=== PATIENT | male | born 1965 | race Caucasian/White ===

== ENCOUNTER 2017-09-21 05:55 | Outpatient (CLI) | payer BC ==
[~2017-09-21] VITALS: Ht 177.8 cm; Wt 78.0 kg
[~2017-09-21 05:55] MED LIST: ALLO300T2 PO; ASP81TEC PO; COLC0.6T PO; MELO-195 PO; OMG1KC PO; ONDAN4ODT PO; PNT40TEC PO; SULF1TAB38 PO; TRM50T PO
[2017-09-21] MEDS ORDERED: ASPI-999 PO (15:11)
[2017-09-21] MEDS ORDERED: OMG1KC PO (15:11)
[2017-09-21] MEDS ORDERED: MELO15TA39 PO (15:11)
[2017-09-21] MEDS ORDERED: ALLO300T2 PO (15:11)
== END 2017-09-21 15:14 ==
LOC: PREOP 05:55
PROVIDERS: ATTEND Surgery
DX: Z01.818 Encounter for other preprocedural examination (principal); K92.1 Melena

== ENCOUNTER 2017-09-27 09:48 | Day surgery (SDC) | payer BC, OTHER ==
[~2017-09-27] VITALS: Ht 177.8 cm; Wt 78.0 kg
[~2017-09-27 09:48] MED LIST changes: +ASPI-999 PO; +MELO15TA39 PO
[2017-09-27] MEDS ORDERED: NS IV 500 ML 500 ML IV PRN (10:02)
[2017-09-27] MEDS ORDERED: LIDOCAINE JELLY 2% (XYLOCAINE) 5 ML TUBE MM PRN (10:15)
[2017-09-27 10:27] VITALS: BP 148/93
--- NOTE | 2017-09-27 11:00 | Progress Note-Pre Operative ---
Pre-Operative Progress Note H&P Reviewed The H&P was reviewed, patient examined and no changes noted. Date Seen by Provider: Sep 27, 2017 Time Seen by Provider: 10:45 Date H&P Reviewed: Sep 27, 2017 Time H&P Reviewed: 10:45 Pre-Operative Diagnosis: rectal bleed MIRIAM MILLER MD Sep 27, 2017 11:00 am
--- NOTE | 2017-09-27 11:00 | Conscious Sedation/ASA ---
Conscious Sedation Pre-Proced Time Reviewed: 10:45 ASA Class: 2 Airway Mallampati Classification: ([place] appropriate class) I. II. III, IV Lungs Heart ASA score ASA 1: a normal healthy patient ASA 2: a patient with a mild systemic disease (mid diabetes, controlled hypertension, obesity ASA 3: a patient with a severe systemic disease that limits activity (angina , COPD, prior Myocardial infarction) ASA 4: a patient with an incapacitating disease that is a constant threat to life (CHF, renal failure) ASA 5: a moribund patient not expected to survive 24 hrs. (ruptured aneurysm) ASA 6: a declared brain patient whose organs are being harvested. For emergent operations, add the letter E after the classification Grade 2 Sedation Plan: Analgesia, Amnesia, Plan communicated to team members, Discussed options with patient/fam, Discussed risks with patient/fam Note The patient is an appropriate candidate to undergo the planned procedure, sedation, and anesthesia. The patient immediately re-assessed prior to indication. MIRIAM MILLER MD Sep 27, 2017 11:00 am
[2017-09-27] MEDS ORDERED: ONDANSETRON 4 MG/2 ML (SDV) Z0FRAN IV PRN (11:15)
[2017-09-27] MEDS ORDERED: morphine INJ 10 MG/ML 1ML (SYR OR VIAL) IV PRN (11:15)
[2017-09-27] MEDS ORDERED: HYDROcodone/APAP 5 MG/325 MG (LORTAB) TAB PO PRN (11:15)
[2017-09-27] MEDS ORDERED: ACETAMINOPHEN 325 MG TABLET/CAPLET (TYLENOL) PO PRN (11:15)
[2017-09-27] MEDS ORDERED: MIDAZOLAM 2 MG/2 ML (VERSED) VIAL ONE ×4 (11:44)
[2017-09-27] MEDS ORDERED: fentaNYL INJECTION 100 MCG/2 ML AMP ONE ×2 (11:44→11:58)
[2017-09-27] MEDS ORDERED: LIDOCAINE JELLY 2% (XYLOCAINE) 5 ML TUBE ONE (11:44)
[2017-09-27] MEDS: fentaNYL INJECTION 100 MCG/2 ML AMP IVP PRN ×4 (12:05→12:15)
[2017-09-27] MEDS: MIDAZOLAM 2 MG/2 ML (VERSED) VIAL IVP PRN ×4 (12:06→12:16)
[2017-09-27 12:40] VITALS: BP 106/60
--- NOTE | 2017-09-27 12:40 | Progress Note-Post Operative ---
Post-Operative Progess Note Surgeon (s)/Dye Maker (s) Surgeon MIRIAM MILLER MD Dye Maker: none Pre-Operative Diagnosis rectal bleed Post-Operative Diagnosis chronic stage 1 ext and int hemorrhoids, mod sigmoid diverticulosis. Procedure & Operative Findings Date of Procedure 09/27/17 Procedure Performed/Findings Colonoscopy Anesthesia Type CS Estimated Blood Loss Estimated blood loss (mL): minimal Specimens/Packing Specimens Removed none MIRIAM MILLER MD Sep 27, 2017 12:40 pm
--- NOTE | 2017-09-27 12:42 | Discharge Inst-Surgical ---
D/C Lap Instructions-PAUL Follow Up 10 years. Activity as tolerated High Fiber Diet 25g or more per day Avoid Alcohol, Caffeine, Spicy [place] and Acid foods. Drink 64 fluid oz or more of fluids per day. Symptoms to Report: Fever over 101 degree F, Nausea/Vomiting If any problems/questions: Contact your physician or go to Emergency Room MIRIAM MILLER MD Sep 27, 2017 12:42 pm
[2017-09-27 13:20] VITALS: BP 107/73
[2017-09-27 13:25] VITALS: BP 107/73
--- NOTE | 2017-09-27 22:36 | OPERATIVE REPORT ---
DATE OF SERVICE: 09/27/2017 ATTENDING PRIMARY CARE PHYSICIAN: Radha Alan DO. PREOPERATIVE DIAGNOSES: Episode of rectal bleeding, screening colonoscopy. POSTOPERATIVE DIAGNOSES: Chronic stage I external and internal hemorrhoids, moderate sigmoid diverticulosis. PROCEDURE: Colonoscopy. SURGEON: Dr. Miller. ANESTHESIA: Conscious sedation. ESTIMATED BLOOD LOSS: Minimal. FINDINGS: Chronic stage I external and internal hemorrhoids. Prostate gland was palpable and appeared normal. There was moderate sigmoid diverticulosis with no signs of diverticulitis. The remainder of the colon was normal. DISPOSITION: The patient tolerated the procedure well. INDICATIONS FOR PROCEDURE: The patient is a 52-year-old male who was referred over to us for screening colonoscopy as well as an episode of rectal bleeding. He reports that approximately two weeks ago, he did notice red blood per rectum, which persisted for about 5 days, which was a small amount per time. He states that he does not have any major issues with constipation as well as no diarrhea. He does not report any family history of colon cancer. He has not had a colonoscopy up to this point in his life. DESCRIPTION OF PROCEDURE: The patient was brought to the endoscopy suite, laid in the left lateral decubitus position. After adequate IV pain and sedative medications and conscious sedation anesthesia, a digital rectal examination was performed. Mild chronic stage I external and internal hemorrhoids were identified, which were not actively edematous nor inflamed and no bleeding. Normal sphincter tone was felt and there were no palpable masses. The endoscope was then intubated into the anus and rectum and gently insufflated. The endoscope was then advanced through the valves of [place] of the rectum with no polyps or any neoplasms identified. The endoscope was then advanced through the sigmoid colon where a moderate sigmoid diverticulosis. There were no mucosal inflammatory changes to indicate any active diverticulitis as well as no bleeding. The endoscope was then advanced through the remainder of the descending, transverse and ascending colon to the cecum. These segments were normal. There were no polyps or any neoplasms identified throughout the colon or rectum. The endoscope was then slowly withdrawn while taking a second look and suctioning of residual air with no additional findings. The patient tolerated the procedure well. We will recommend a high fiber diet with at least 30 grams of fiber per day as well as at least 64 fluid ounces of water to promote soft stools on a daily basis. He does not need another colonoscopy for another 10 years. Job ID: [id number] DocumentID: [id number] Dictated Date: 09/27/2017 12:40:00 Tank Furnace Operator Date: 09/27/2017 20:11:24 Dictated By: MIRIAM MILLER MD MTDD
--- OUTSIDE RECORDS SUMMARY | 2017-09-29 08:48 | XMS REPORT ---
Author Author ROLLY JACK [facility] Address [address] [place] [address] Care Team Providers Care Maintenance Superintendent Name Role Phone ROLLY JACK Unavailable PROBLEMS Type Condition ICD9-CM Code [id number] Code Onset Dates Condition Status SNOMED Code Problem Encounter for dental examination Z01.20 Active 519312498 Assessment Encounter for dental examination Z01.20 Apr, Active 944509136 ALLERGIES Substance Reaction Event Type Date Status N.K.D.A. Unknown Non Drug Allergy Apr, Unknown SOCIAL HISTORY No smoking Hx information available PLAN OF CARE VITAL SIGNS Blood pressure systolic 141 mmHg 2016-04-22 Blood pressure diastolic 84 mmHg 2016-04-22 MEDICATIONS Medication Instructions Dosage Frequency Start Date End Date Duration Status Allopurinol 300 MG Orally Once a day 1 tablet 24h Active Fish Oil 1200 MG Orally Once a day 1 capsule 24h Active Aspirin Adult Low Dose 81 MG Orally Once a day 1 tablet 24h Active Meloxicam 15 MG Orally Once a day 1 tablet 24h Active RESULTS No Results PROCEDURES Procedure Date Ordered Related Diagnosis Body Site Periodontal scaling and root Apr 22, 2016 IMMUNIZATIONS No Known Immunizations
--- OUTSIDE RECORDS SUMMARY | 2017-09-29 08:48 | XMS REPORT | Continuity of Care Document ---
Author Author [facility] Organization [facility] Address Unknown Phone Unavailable Allergies Active Description Code Type Severity Reaction Onset Reported/Identified Relationship to Patient Clinical Status Yes No Known Drug Allergies [id number] Drug Allergy Unknown N/A 06/04/2010 Medications There is no data. Problems Date Dx Coded Attending Type Code Diagnosis Diagnosed By 03/20/2013 DARION VALENTINE DO S Ot 786.50 03/20/2013 DARION VALENTINE DO S Ot V17.3 10/11/2016 LILIYA VALENTINE DOLINE S Ot 786.50 CHEST PAIN NOS 10/11/2016 LILIYA VALENTINE DOLINE S Ot V17.49 FAMILY HISTORY OF OTHER CARDIOVASCULAR D Procedures There is no data. Results There is no data. Encounters ACCT No. Visit Date/Time Discharge Status Pt. Type Provider Facility Loc./Unit Complaint [id number] 09/21/2017 05:55:00 09/21/2017 15:14:00 DIS Outpatient MIRIAM MILLER MD [facility] PREOP COLONOSCOPY [id number] 03/27/2013 10:29:00 03/27/2013 23:59:59 CLS Outpatient LILIYA VALENTINE DOLINE S [facility] CARD CHEST PAIN, FAMILIAL CAD [id number] 03/20/2013 12:06:00 03/20/2013 19:15:00 DIS Inpatient LILIYA VALENTINE DOLINE S [facility] ICU [id number] 09/27/2017 10:30:00 PEN Preadmit MIRIAM MILLER MD [facility] ENDO +BLOOD IN STOOLS
--- OUTSIDE RECORDS SUMMARY | 2017-09-29 08:48 | XMS REPORT ---
Author Author ROLLY JACK [facility] Address [address] [place] [address] Care Team Providers Care Tile Finisher Name Role Phone ROLLY JACK Unavailable PROBLEMS Type Condition ICD9-CM Code [id number] Code Onset Dates Condition Status SNOMED Code Problem Encounter for dental examination Z01.20 Active 084139384 Assessment Encounter for dental examination Z01.20 Apr, Active 488034452 ALLERGIES Substance Reaction Event Type Date Status N.K.D.A. Unknown Non Drug Allergy Apr, Unknown SOCIAL HISTORY No smoking Hx information available PLAN OF CARE VITAL SIGNS Blood pressure systolic 134 mmHg 2016-04-21 Blood pressure diastolic 84 mmHg 2016-04-21 MEDICATIONS Medication Instructions Dosage Frequency Start Date End Date Duration Status Allopurinol 300 MG Orally Once a day 1 tablet 24h Active Aspirin Adult Low Dose 81 MG Orally Once a day 1 tablet 24h Active Fish Oil 1200 MG Orally Once a day 1 capsule 24h Active Meloxicam 15 MG Orally Once a day 1 tablet 24h Active RESULTS No Results PROCEDURES Procedure Date Ordered Related Diagnosis Body Site Periodontal scaling and root Apr 21, 2016 Periodontal scaling and root Apr 21, 2016 IMMUNIZATIONS No Known Immunizations
--- OUTSIDE RECORDS SUMMARY | 2017-09-29 08:48 | XMS REPORT ---
Author Author ROLLY JACK [facility] Address [address] [place] [address] Care Team Providers Care Outsole Rounder Name Role Phone ROLLY JACK Unavailable PROBLEMS Type Condition ICD9-CM Code DFF04-AZ Code Onset Dates Condition Status SNOMED Code Problem Encounter for dental examination Z01.20 Active 370462103 Assessment Encounter for dental examination Z01.20 Mar, Active 718764409 ALLERGIES Substance Reaction Event Type Date Status N.K.D.A. Unknown Non Drug Allergy Mar, Unknown SOCIAL HISTORY No smoking Hx information available PLAN OF CARE VITAL SIGNS Blood pressure systolic 130 mmHg 2016-04-12 Blood pressure diastolic 85 mmHg 2016-04-12 MEDICATIONS Medication Instructions Dosage Frequency Start Date End Date Duration Status Fish Oil 1200 MG Orally Once a day 1 capsule 24h Active Aspirin Adult Low Dose 81 MG Orally Once a day 1 tablet 24h Active Allopurinol 300 MG Orally Once a day 1 tablet 24h Active Meloxicam 15 MG Orally Once a day 1 tablet 24h Active RESULTS No Results PROCEDURES Procedure Date Ordered Related Diagnosis Body Site Periodontal scaling and root Apr 12, 2016 IMMUNIZATIONS No Known Immunizations
--- OUTSIDE RECORDS SUMMARY | 2017-09-29 08:48 | XMS REPORT ---
Author Author PONCE PEÑA [employer] Address Unknown Phone Unavailable Care Team Providers Care Nut Packer Name Role Phone PONCE PEÑA CP Unavailable Allergies, Adverse Reactions, Alerts Substance Reaction Event Type N.K.D.A. Info Not Available Non Drug Allergy Problems Problem Type Condition Code Onset Dates Condition Status Assessment Encounter for dental examination Z01.20 Active Problem Encounter for dental examination Z01.20 Active Medications No Known Medications Procedures Procedure Coding System Code Date INTRAORL-PERIAPICAL 1 FILM 84492 CPT-4 D0220 Mar 14, 2016 INTRAORL-PERIAPICAL EA ADD FILM CPT-4 D0230 Mar 14, 2016 COMP ORAL EVALUATION - NEW/EST PT CPT-4 D0150 Mar 14, 2016 Billing Notes on claim CPT-4 EC109 Mar 14, 2016 BITEWINGS - FOUR FILMS CPT-4 D0274 Mar 14, 2016 INTRAORL-PERIAPICAL EA ADD FILM CPT-4 D0230 Mar 14, 2016 [employer] Employee/Board adjustment CPT-4 CHCEM Mar 14, 2016 PANORAMIC FILM SEE ALSO CODE 79510 CPT-4 D0330 Mar 14, 2016 Vital Signs Date/Time: Mar 14, 2016 Blood Pressure Diastolic 82 mmHg Blood Pressure Systolic 113 mmHg Cardiac Monitoring Heart Rate 72 bpm Results No Known Results Summary Purpose [employer] Submission
--- OUTSIDE RECORDS SUMMARY | 2017-09-29 08:48 | XMS REPORT ---
Author Author YOLI PEOPLES Organization [employer] Address Unknown Phone Unavailable Care Team Providers Care Wide Load Escort Name Role Phone YOLI PEOPLES CP Unavailable Allergies, Adverse Reactions, Alerts Substance Reaction Event Type N.K.D.A. Info Not Available Non Drug Allergy Problems Problem Type Condition Code Onset Dates Condition Status Assessment Shortness of breath R06.02 Active Assessment Acute non-recurrent maxillary sinusitis J01.00 Active Problem Encounter for dental examination Z01.20 Active Medications Medication Code System Code Instructions Start Date End Date Status Dosage Cough Drops [facility] [address] 8.4 MG Mouth/Throat not defined Aspirin Adult Low Dose [facility] [address]-73 81 MG Orally Once a day 1 tablet Augmentin [facility] [address]-52 875-125 MG Orally every 12 hrs May 23, 2016 Jun 02, 2016 1 tablet Albuterol Sulfate [facility] [address]-58 108 (90 Base) MCG/ACT Inhalation every 4 hrs May 23, 2016 1 puff as needed Meloxicam [facility] [address]-14 15 MG Orally Once a day 1 tablet Fish Oil [facility] [address] 1200 MG Orally Once a day 1 capsule Allopurinol [facility] [address]-99 300 MG Orally Once a day 1 tablet Robitussin Cold Cough+ Chest [facility] [address]-92 10-100 MG/5ML Orally every 4 hrs 10 ml as needed Procedures Procedure Coding System Code Date MEASURE BLOOD OXYGEN LEVEL CPT-4 91763 May 23, 2016 Office Visit, Est Pt., Level 3 CPT-4 47418 May 23, 2016 CHEST X-RAY CPT-4 39824 May 23, 2016 Vital Signs Date/Time: May 23, 2016 Cardiac Monitoring Heart Rate 78 bpm Weight 178.6 lbs Height 70 in BMI 25.62 Index Oximetry on room air:97 % Blood Pressure Diastolic 90 mmHg Blood Pressure Systolic 130 mmHg Results No Known Results Summary Purpose [employer] Submission
--- OUTSIDE RECORDS SUMMARY | 2017-09-29 08:48 | XMS REPORT ---
Author Author PONCE PEÑA [facility] Address [address] [place] [address] Care Team Providers Care Type Photography Supervisor Name Role Phone PONCE PEÑA Unavailable PROBLEMS Type Condition ICD9-CM Code NCE45-AA Code Onset Dates Condition Status SNOMED Code Problem Dental examination Z01.20 Active 195144685 Problem Encounter for dental examination Z01.20 Active 179548865 ALLERGIES Substance Reaction Event Type Date Status N.K.D.A. Unknown Non Drug Allergy Jul, Unknown SOCIAL HISTORY No smoking Hx information available PLAN OF CARE Activity Details Follow Up First Available/, 3 Months Reason:TE #2/3; Perio Maint VITAL SIGNS Heart Rate 72 bpm 2016-07-27 Blood pressure systolic 143 mmHg 2016-07-27 Blood pressure diastolic 83 mmHg 2016-07-27 MEDICATIONS Medication Instructions Dosage Frequency Start Date End Date Duration Status Meloxicam 15 MG Orally Once a day 1 tablet 24h Active Allopurinol 300 MG Orally Once a day 1 tablet 24h Active Aspirin Adult Low Dose 81 MG Orally Once a day 1 tablet 24h Active Fish Oil 1200 MG Orally Once a day 1 capsule 24h Active RESULTS No Results PROCEDURES Procedure Date Ordered Related Diagnosis Body Site Periodontal maint procedures Jul 27, 2016 TOPICAL FLUORIDE VARNISH Jul 27, 2016 [facility] Employee/Board adjustment Jul 27, 2016 Billing Notes on claim Jul 27, 2016 IMMUNIZATIONS No Known Immunizations
--- OUTSIDE RECORDS SUMMARY | 2017-09-29 08:48 | XMS REPORT ---
Author Author BUDDY KENT [facility] Address Unknown Care Team Providers Care Keyboard Operator Name Role Phone BUDDY KENT Unavailable PROBLEMS Type Condition ICD9-CM Code UEG44-IX Code Onset Dates Condition Status SNOMED Code Problem Dental examination Z01.20 Active 138964164 Problem Encounter for dental examination Z01.20 Active 072099679 ALLERGIES Substance Reaction Event Type Date Status N.K.D.A. Unknown Non Drug Allergy Jul, Unknown SOCIAL HISTORY No smoking Hx information available PLAN OF CARE Activity Details Follow Up prn Reason:as needed VITAL SIGNS Height 70 in 2016-08-11 Blood pressure systolic 152 mmHg 2016-08-11 Blood pressure diastolic 98 mmHg 2016-08-11 MEDICATIONS Medication Instructions Dosage Frequency Start Date [...] Procedure Date Ordered Related Diagnosis Body Site INTRAORL-PERIAPICAL 1 FILM 52141 Aug 11, 2016 EXTRAC ERUPTED TOOTH/EXPOSED ROOT Aug 11, 2016 EXTRAC ERUPTED TOOTH/EXPOSED ROOT Aug 11, 2016 IMMUNIZATIONS No Known Immunizations
== END 2017-09-27 13:35 | disposition home or self-care (01) ==
LOC: ENDO 09:48
PROVIDERS: ATTEND Surgery
DX: Z12.11 Encounter for screening for malignant neoplasm of colon (principal); K57.30 Diverticulosis of large intestine without perforation or abscess without bleeding; K64.0 First degree hemorrhoids; K62.5 Hemorrhage of anus and rectum; M10.9 Gout, unspecified; Z79.899 Other long term (current) drug therapy; Z80.42 Family history of malignant neoplasm of prostate

== ENCOUNTER 2018-06-30 10:18 | Emergency (ER) | payer OTHER ==
[~2018-06-30] VITALS: Ht 177.8 cm; Wt 77.1 kg
--- OUTSIDE RECORDS SUMMARY | 2018-06-30 10:24 | XMS REPORT ---
Author Author ROLLY JACK [facility] Address [address] [place] [address] Care Team Providers Care Loader Magazine Grinder Name Role Phone ROLLY JACK Unavailable PROBLEMS Unknown Problems ALLERGIES No Known Allergies ENCOUNTERS Encounter Location Date Diagnosis [facility] [address] [phone] Jan, Dental examination Z01.20 [facility] [address] [id number] Mar, Encounter for dental examination Z01.20 [facility] [address] [phone] Nov, Dental examination Z01.20 [facility] [phone] [place] [id number] Jul, Dental caries K02.9 and Dental examination Z01.20 [facility] [address] [id number] Jul, Encounter for dental examination Z01.20 [facility] [id number] [place] [phone] May, Shortness of breath R06.02 and Acute non-recurrent maxillary sinusitis J01.00 [facility] [id number] [place] [id number] Apr, Encounter for dental examination Z01.20 [facility] [address] [phone] Apr, Encounter for dental examination Z01.20 [facility] [id number] [place] [id number] Mar, Encounter for dental examination Z01.20 [facility] [address] [id number] [place] [phone] Mar, Encounter for dental examination Z01.20 IMMUNIZATIONS No Known Immunizations SOCIAL HISTORY Never Assessed REASON FOR VISIT dental hygiene recare PLAN OF CARE Activity Details Follow Up 4 Months Reason:periomaintenance + exam + radiographs. VITAL SIGNS Blood pressure systolic 130 mmHg 2018-02-06 Blood pressure diastolic 80 mmHg 2018-02-06 MEDICATIONS Medication Instructions Dosage Frequency Start Date End Date Duration Status Aspirin Adult Low Dose 81 MG Orally Once a day 1 tablet 24h Active Fish Oil 1200 MG Orally Once a day 1 capsule 24h Active Cough Drops 8.4 MG Not-Taking Meloxicam 15 MG Orally Once a day 1 tablet 24h Active Allopurinol 300 MG Orally Once a day 1 tablet 24h Active Albuterol Sulfate 108 (90 Base) MCG/ACT Inhalation every 4 hrs 1 puff as needed 4h 10 May, 2016 Not-Taking Robitussin Cold Cough+ Chest 10-100 MG/5ML Orally every 4 hrs 10 ml as needed 4h Not-Taking RESULTS No Results PROCEDURES Procedure Date Ordered Result Body Site Periodontal maint procedures February 06, 2018 Billing Notes on claim February 06, 2018 [facility] Employee/Board adjustment February 06, 2018 INSTRUCTIONS MEDICATIONS ADMINISTERED No Known Medications MEDICAL (GENERAL) HISTORY Type Description Date Medical History Joint pain/gout
--- OUTSIDE RECORDS SUMMARY | 2018-06-30 10:25 | XMS REPORT ---
Author Author PONCE PEÑA [facility] Address [address] [place] [address] Care Team Providers Care Systems Programmer Name Role Phone PONCE PEÑA Unavailable PROBLEMS Unknown Problems ALLERGIES No Known Allergies ENCOUNTERS Encounter Location Date Diagnosis [facility] [id number] [place] [id number] Mar, Encounter for dental examination Z01.20 [facility] [place] [id number] [place] [phone] Nov, Dental examination Z01.20 [facility] [id number] [place] [id number] Jul, Dental caries K02.9 and Dental examination Z01.20 [facility] [id number] [place] [id number] Jul, Encounter for dental examination Z01.20 [facility] [id number] [place] [phone] May, Shortness of breath R06.02 and Acute non-recurrent maxillary sinusitis J01.00 [facility] [id number] [place] [id number] Apr, Encounter for dental examination Z01.20 [facility] [id number] [place] [id number] Apr, Encounter for dental examination Z01.20 [facility] [id number] [place] [id number] Mar, Encounter for dental examination Z01.20 [facility] [phone] [place] [phone] Mar, Encounter for dental examination Z01.20 IMMUNIZATIONS No Known Immunizations SOCIAL HISTORY Never Assessed REASON FOR VISIT Perio main 4 month+ exam + radiograph PLAN OF CARE Activity Details Follow Up 4 Months Reason:Perio Maint VITAL SIGNS Heart Rate 75 bpm 2017-03-27 Blood pressure systolic 138 mmHg 2017-03-27 Blood pressure diastolic 91 mmHg 2017-03-27 MEDICATIONS Medication Instructions Dosage Frequency Start Date [...] Ordered Result Body Site Periodontal maint procedures Mar 27, 2017 Billing Notes on claim Mar 27, 2017 INSTRUCTIONS MEDICATIONS ADMINISTERED No Known Medications MEDICAL (GENERAL) HISTORY Type Description Date Medical History Joint pain/gout
--- OUTSIDE RECORDS SUMMARY | 2018-06-30 10:25 | XMS REPORT | Continuity of Care Document ---
Author Author [facility] Organization [facility] Address Unknown Phone Unavailable Allergies Active Description Code Type Severity Reaction Onset Reported/Identified Relationship to Patient Clinical Status Yes No Known Drug Allergies [id number] Drug Allergy Unknown N/A 06/04/2010 Medications There is no data. Problems Date Dx Coded Attending Type Code Diagnosis Diagnosed By 03/20/2013 DARION ALAN DO Ot 786.50 03/20/2013 DARION ALAN DO Ot V17.3 10/11/2016 DARION ALAN DO Ot 786.50 CHEST PAIN NOS 10/11/2016 DARION ALAN DO Ot V17.49 FAMILY HISTORY OF OTHER CARDIOVASCULAR D 09/27/2017 MIRIAM MILLER MD Ot K57.30 DVRTCLOS OF LG INT W/O PERFORATION OR AB 09/27/2017 MIRIAM MILLER MD, Ot K62.5 HEMORRHAGE OF ANUS AND RECTUM 09/27/2017 MIRIAM MILLER MD, Ot K64.0 FIRST DEGREE HEMORRHOIDS 09/27/2017 MIRIAM MILLER MD, Ot M10.9 GOUT, UNSPECIFIED 09/27/2017 MIRIAM MILLER MD Ot Z12.11 ENCOUNTER FOR SCREENING FOR MALIGNANT NE 09/27/2017 MIRIAM MILLER MD, Ot Z79.899 OTHER COMMODITY DIRECTOR (CURRENT) DRUG THERAPY 09/27/2017 MIRIAM MILLER MD, Ot Z80.42 FAMILY HISTORY OF MALIGNANT NEOPLASM OF 09/28/2017 MIRIAM MILLER MD, Ot K57.30 DVRTCLOS OF LG INT W/O PERFORATION OR AB 09/28/2017 MIRIAM MILLER MD, Ot K62.5 HEMORRHAGE OF ANUS AND RECTUM 09/28/2017 MIRIAM MILLER MD Ot K64.0 FIRST DEGREE HEMORRHOIDS 09/28/2017 MIRIAM MILLER MD, Ot M10.9 GOUT, UNSPECIFIED 09/28/2017 MIRIAM MILLER MD, Ot Z12.11 ENCOUNTER FOR SCREENING FOR MALIGNANT NE 09/28/2017 MIRIAM MILLER MD, Ot Z79.899 OTHER COMMODITY DIRECTOR (CURRENT) DRUG THERAPY 09/28/2017 MIRIAM MILLER MD, Ot Z80.42 FAMILY HISTORY OF MALIGNANT NEOPLASM OF 10/03/2017 MIRIAM MILLER MD, Ot K57.30 DVRTCLOS OF LG INT W/O PERFORATION OR AB 10/03/2017 MIRIAM MILLER MD, Ot K62.5 HEMORRHAGE OF ANUS AND RECTUM 10/03/2017 MIRIAM MILLER MD, Ot K64.0 FIRST DEGREE HEMORRHOIDS 10/03/2017 MIRIAM MILLER MD, Ot M10.9 GOUT, UNSPECIFIED 10/03/2017 MIRIAM MILLER MD, Ot Z12.11 ENCOUNTER FOR SCREENING FOR MALIGNANT NE 10/03/2017 MIRIAM MILLER MD, Ot Z79.899 OTHER COMMODITY DIRECTOR (CURRENT) DRUG THERAPY 10/03/2017 MIRIAM MILLER MD, Ot Z80.42 FAMILY HISTORY OF MALIGNANT NEOPLASM OF Procedures There is no data. Results There is no data. Encounters ACCT No. Visit Date/Time Discharge Status Pt. Type Provider Facility Loc./Unit Complaint [id number] 09/27/2017 09:48:00 09/27/2017 13:35:00 DIS Outpatient MIRIAM MILLER MD [facility] ENDO +BLOOD IN STOOLS [id number] 09/21/2017 05:55:00 09/21/2017 15:14:00 DIS Outpatient MIRIAM MILLER MD [facility] PREOP COLONOSCOPY [id number] 03/27/2013 10:29:00 03/27/2013 23:59:59 CLS Outpatient DARION ALAN DO [facility] CARD CHEST PAIN, FAMILIAL CAD [id number] 03/20/2013 12:06:00 03/20/2013 19:15:00 DIS Inpatient DARION ALAN DO [facility] ICU 08/201705/07/2018 10:05:04 05/07/2018 23:59:59 CLS Outpatient Darion Alan [id number] 02/06/2018 08:00:00 02/06/2018 23:59:59 CLS Outpatient [facility]
--- OUTSIDE RECORDS SUMMARY | 2018-06-30 10:25 | XMS REPORT | Continuity of Care Document ---
Author Author [facility] Organization [facility] Address Unknown Phone Unavailable Care Team Providers Care Electronic Installer Name Role Phone DARION VALENTINE DO PP Insurance Providers Payer Name Policy Number Subscriber Name Relationship [facility] [id number] Veronica Zapien 02 Advance Directives Directive Response Recorded Date Advance Directives N 03/20/13 1:32pm Health Care Power of Supervisor Elementary Education N 03/20/13 1:32pm Organ Donor Y 03/20/13 1:32pm Problems No Known Problems or Medical conditions. Family History History Response Recorded Date/Time Hx Family Cancer Y sister 03/20/13 1: 38pm Hx Family Cardiac Disorders Y 03/20/13 1: 38pm Hx Family Myocardial Infarction Y father 03/20/13 1:38pm Social History History Response Recorded Date/Time Alcohol Use Rarely Uses 03/20/13 1:33pm Recreational Drug Use N 03/20/13 1:33pm Recent Foreign Travel N 03/20/13 1:33pm Recent Infectious Disease Exposure N 02/23 1:33pm Hospitalization with Isolation Denies 02/23 8:48pm Allergies, Adverse Reactions, Alerts Allergen Type Severity Reaction Last Updated No Known Drug Allergies 06/04/10 Medications Medication Dose Units Route Sig Qty Days Pantoprazole Sodium (Protonix) 1 Tab PO DAILY 30 Meloxicam 15 Mg PO DAILY Aspirin (Aspirin Ec 81 Mg) 81 Mg PO DAILY Fish Oil 1000 Mg PO DAILY Allopurinol (Zyloprim Tablet) 300 Mg PO DAILY Colchicine (Colchicine Tab) 0.6 Mg PO DAILY Ondansetron HCl (Zofran Oral Dissolve) 8 Mg PO Q4H 10 Tramadol HCl (Ultram) 50 Mg PO Q4-6HOURS PRN 20 Trimethoprim/Sulfamethoxazole (Bactrim Ds) 1 Ea PO BID 20 Response Recorded Date/Time Status not known Unknown Results No Known Relevant Diagnostic Tests, Laboratory Data and/or Discharge Summary. Encounters Encounter Location Date/Time Discharged Inpatient [facility] 12:06pm Departed Emergency Room [facility] 13/07 11:25am
[2018-06-30] MEDS ORDERED: NS IV 1000 ML 1,000 ML IV ONE (10:34)
[2018-06-30 10:58] LABS: BASOPHILS % (AUTO) 0 % (0-10); EOSINOPHILS % (AUTO) 0 % (0-10); HEMATOCRIT 40 % (40-54); HEMOGLOBIN 13.8 G/DL (13.3-17.7); LYMPHOCYTES # (AUTO) 0.5 X 10^3 (1.0-4.0); LYMPHOCYTES % (AUTO) 9 % (12-44); MEAN CORPUSCULAR HEMOGLOBIN 29 PG (25-34); MEAN CORPUSCULAR HGB CONC 35 G/DL (32-36); MEAN CORPUSCULAR VOLUME 84 FL (80-99); MEAN PLATELET VOLUME 9.4 FL (7.4-10.4); MONOCYTES # (AUTO) 0.4 X 10^3 (0.0-1.0); MONOCYTES % (AUTO) 7 % (0-12); NEUTROPHILS # (AUTO) 4.5 X 10^3 (1.8-7.8); NEUTROPHILS % (AUTO) 84 % (42-75); PLATELET COUNT 143 10^3/uL (130-400); RED CELL DISTRIBUTION WIDTH 12.2 % (10.0-14.5); WHITE BLOOD COUNT 5.3 10^3/uL (4.3-11.0)
--- NOTE | 2018-06-30 10:58 | ED GU-Male ---
General Chief Complaint: Abdominal/GI Problems Stated Complaint: RIGHT SIDED BACK PAIN Nursing Triage Note: ARRIVED VIA AMB TO ROOM 06. STATES HE STARTED HAVING RIGHT SIDED FLANK PAIN YESTERDAY THAT BECAME WORSE TODAY. RECIEVED TORADOL AT [facility] AROUND 0945 WHICH HE STATES HELPED THE PAIN. Source: patient Exam Limitations: no limitations History of Present Illness Date Seen by Provider: Jun 30, 2018 Time Seen by Provider: 10:28 Initial Comments Here with report of right flank pain onset yesterday but became worse today. Noted that he's had some darker colored urine this week. He has been working putting up Subtextual lights and thought maybe he pulled his back. He did take ibuprofen 800 mg this morning and did go to the clinic for this because the pain was not getting better. They gave him a shot of Toradol which helped. He is noted to have red cells in his urine so he was sent here for further evaluation. Denies fever or chills. Has had an episode of vomiting with the pain. Denies diarrhea. No other significant injury or concerns. Timing/Duration: getting worse, other (3-4 days) Severity/Quality: mild, moderate, aching, cramping Location: right flank Radiation: groin Activities at Onset: physical activity Prior Genitourinary Problems: recent trauma Modifying Factors: Improves With Analgesics; Worsens With Movement Associated Symptoms: No dysuria, No fever/chills; lower back pain, nausea/ vomiting; No urinary frequency Allergies and Home Medications Allergies Coded Allergies: No Known Drug Allergies (Unverified , 06/04/10) Home Medications Allopurinol 300 Mg Tablet, 300 MG PO DAILY, (Reported) Meloxicam 15 Mg Tablet, 15 MG PO DAILY, (Reported) [place] 3 Polyunsat Fatty Acids 1,000 Mg Cap, 1,000 MG PO DAILY, (Reported) Patient Home Medication List Home Medication List Reviewed: Yes Review of Systems Review of Systems Constitutional: see HPI; No chills, No fever EENTM: no symptoms reported Respiratory: no symptoms reported Cardiovascular: no symptoms reported Gastrointestinal: see HPI; No nausea; vomiting Genitourinary: flank pain, hematuria Musculoskeletal: back pain; No muscle pain Skin: no symptoms reported All Other Systemes Reviewed Negative Unless Noted: Yes Past Nmpnhze-Ibczrn-Ypoauc Hx Past Med/Social Hx: Reviewed Nursing Past Med/Soc Hx Patient Social History Alcohol Use: Denies Use Recreational Drug Use: No Smoking Status: Never a Smoker Recent Foreign Travel: No Contact w/Someone Who Travel: No Recent Infectious Disease Expo: No Recent Hopitalizations: No Immunizations Up To Date Tetanus Booster (TDap): Less than 5yrs Seasonal Allergies Seasonal Allergies: No Past Medical History Surgeries: No Respiratory: No Currently Using CPAP: No Currently Using BIPAP: No Cardiac: No Neurological: No Reproductive Disorders: No Sexually Transmitted Disease: No HIV/AIDS: No Gastrointestinal: No (blood in stools) Musculoskeletal: No Gout Endocrine: No HEENT: No Cancer: No Psychosocial: Yes Anxiety Integumentary: No Blood Disorders: No Family Medical History Reviewed Nursing Family Hx CAD Under 55 Years Old, CAD Over 55 Years Old Physical Exam Vital Signs Vital Signs - First Documented 06/30/18 10:21 Temp 98.0 Pulse 81 Resp 16 B/P (MAP) 142/95 (111) Pulse Ox 99 O2 Delivery Room Air Capillary Refill : Less Than 3 Seconds Height, Weight, BMI Height: 5'10.00" Weight: 170lbs. 0.0oz. 77.888324jy; 24.7 BMI Method:Stated General Appearance: WD/WN, no apparent distress Neck: full range of motion, supple Cardiovascular: regular rate, rhythm, no murmur Respiratory: lungs clear, normal breath sounds Gastrointestinal: non tender, soft Back: CVA tenderness (R); No CVA tenderness (L) Extremities: normal range of motion, non-tender Neurologic/Psychiatric: alert Progress/Results/Core Measures Suspected Sepsis Recent Fever Within 48 Hours: No Infection Criteria Present: Suspected New Infection New/Unexplained Altered Menta: No Sepsis Screen: No Definite Risk SIRS Temperature:98.0 Pulse: 81 Respiratory Rate: 16 Laboratory Tests 06/30/18 10:50: White Blood Count 5.3 Blood Pressure 142 /95 Mean: 111 Laboratory Tests 06/30/18 10:50: Creatinine 1.24, Platelet Count 143, Total Bilirubin 0.7 Results/Orders Lab Results Laboratory Tests Test 06/30/18 10:50 06/30/18 11:55 06/30/18 12:34 Range/Units White Blood Count 5.3 4.3-11.0 10^3/uL Red Blood Count 4.70 4.35-5.85 10^6/uL Hemoglobin 13.8 13.3-17.7 G/DL Hematocrit 40 40-54 % Mean Corpuscular Volume 84 80-99 FL Mean Corpuscular Hemoglobin 29 25-34 PG Mean Corpuscular Hemoglobin Concent 35 32-36 G/DL Red Cell Distribution Width 12.2 10.0-14.5 % Platelet Count 143 130-400 10^3/uL Mean Platelet Volume 9.4 7.4-10.4 FL Neutrophils (%) (Auto) 84 H 42-75 % Lymphocytes (%) (Auto) 9 L 12-44 % Monocytes (%) (Auto) 7 0-12 % Eosinophils (%) (Auto) 0 0-10 % Basophils (%) (Auto) 0 0-10 % Neutrophils # (Auto) 4.5 1.8-7.8 X 10^3 Lymphocytes # (Auto) 0.5 L 1.0-4.0 X 10^3 Monocytes # (Auto) 0.4 0.0-1.0 X 10^3 Eosinophils # (Auto) 0.0 0.0-0.3 10^3/uL Basophils # (Auto) 0.0 0.0-0.1 10^3/uL Sodium Level 138 135-145 MMOL/L Potassium Level 4.1 3.6-5.0 MMOL/L Chloride Level 104 98-107 MMOL/L Carbon Dioxide Level 25 21-32 MMOL/L Anion Gap 9 5-14 MMOL/L Blood Urea Nitrogen 30 H 7-18 MG/DL Creatinine 1.24 0.60-1.30 MG/DL Estimat Glomerular Filtration Rate > 60 BUN/Creatinine Ratio 24 Glucose Level 231 H 70-105 MG/DL Calcium Level 9.4 8.5-10.1 MG/DL Corrected Calcium 9.1 8.5-10.1 MG/DL Total Bilirubin 0.7 0.1-1.0 MG/DL Aspartate Amino Transf (AST/SGOT) 24 5-34 U/L Alanine Aminotransferase (ALT/SGPT) 35 0-55 U/L Alkaline Phosphatase 46 40-136 U/L Total Protein 7.1 6.4-8.2 GM/DL Albumin 4.4 3.2-4.5 GM/DL Urine Color YELLOW Urine Clarity CLEAR Urine pH 5 5-9 Urine Specific [place] 1.020 1.016-1.022 Urine Protein 1+ H NEGATIVE Urine Glucose (UA) NEGATIVE NEGATIVE Urine Ketones NEGATIVE NEGATIVE Urine Nitrite NEGATIVE NEGATIVE Urine Bilirubin NEGATIVE NEGATIVE Urine Urobilinogen NORMAL NORMAL MG/DL Urine Leukocyte Esterase 1+ H NEGATIVE Urine RBC (Auto) 5+ H NEGATIVE Urine RBC 5-10 H /HPF Urine WBC RARE /HPF Urine Squamous Epithelial Cells RARE /HPF Urine Crystals NONE /LPF Urine Bacteria TRACE /HPF Urine Casts NONE /LPF Urine Mucus NEGATIVE /LPF Urine Culture Indicated NO My Orders Orders - LACY MURRAY MD Saline Lock/Iv-Start (06/30/18 10:34) Ns Iv 1000 Ml (Sodium Chloride 0.9%) (06/30/18 10:34) Cbc With Automated Diff (06/30/18 10:34) Comprehensive Metabolic Panel (06/30/18 10:34) Ua Culture If Indicated (06/30/18 10:34) Ct Abd/Pelvis Wo(Kidney Stone) (06/30/18 10:34) Medications Given in ED Current Medications Medications Dose Ordered Sig/Henny Route Start Time Stop Time Status Last Admin Dose Admin Sodium Chloride 1,000 ml @ 0 mls/hr Q0M ONCE IV 06/30/18 10:34 06/30/18 10:36 DC 06/30/18 10:49 1,000 MLS/HR Vital Signs/I&O 06/30/18 10:21 Temp 98.0 Pulse 81 Resp 16 B/P (MAP) 142/95 (111) Pulse Ox 99 O2 Delivery Room Air Capillary Refill : Less Than 3 Seconds Blood Pressure Mean: 111 Progress Note : Progress Note Seen and evaluated. IV, labs and UA ordered. CT abdomen and pelvis kidney stone protocol ordered. Normal saline 1 L bolus. Monitor patient. Pain is fairly well controlled currently with Toradol IM received at outside facility. 1240: CT results noted. Repeat blood sugar done in fingerstick blood sugar noted to be 160. I did discuss the CT findings and blood sugar concerns with the patient at length. He has been told that his blood sugar is elevated and he needs to start a new medicine. He has not picked that up yet. He thinks it' s probably still at the pharmacy though. He verbalizes understanding of the need to start that medicine. Dr. Alan is his doctor and I'll send a copy of the chart over to her. We did discuss following up with Dr. Leo as well. I will give him information on making that appointment. Discharged home with return precautions. Patient verbalize understanding instructions and agreement with plan. Diagnostic Imaging Diagonstic Imaging: CT Plain Films/CT/US/NM/MRI: abdomen, pelvis Comments NAME: [facility]D [facility] REC#: [id number] PT STATUS: REG ER : 1965 PHYSICIAN: LACY MURRAY MD ADMIT DATE: 06/30/18/ER Draft Date of Exam:06/30/18 CT ABD/PELVIS WO(KIDNEY STONE) PROCEDURE: CT urinary tract, rule out kidney stone. TECHNIQUE: Multiple contiguous axial images were obtained through the abdomen and pelvis without the use of intravenous contrast. INDICATION: Dark urine, flank pain. COMPARISON: None. FINDINGS: There is a 3 mm stone in the right UVJ with resultant mild hydronephrosis and hydroureter. No additional calculi are seen. There is no inflammatory change or abscess. Lung bases are clear. The gallbladder and remainder of the solid organs are intact. Course and caliber of the large and small bowel unremarkable. The appendix is normal. There are several diverticuli of the sigmoid colon without diverticulitis. Slight prostate enlargement seen. There is no hernia. Osseous structures are age-appropriate. IMPRESSION: 1. Mild right-sided hydronephrosis and hydroureter secondary to a 3 mm stone in the right UVJ. 2. Diverticulosis of the sigmoid colon without diverticulitis. 3. Slight prostate enlargement. Departure Impression Primary Impression: Right ureteral stone Additional Impression: Hyperglycemia Disposition: 01 HOME, SELF-CARE Condition: Improved Departure-Patient Inst. Decision time for Depature: 12:42 Referrals: DARION ALAN DO (PCP/Family) Primary Care Physician Patient Instructions: Acute Abdomen (Belly Pain), Adult (DC), Hyperglycemia, Adult (DC), Kidney Stones (DC) Add. Discharge Instructions: All discharge instructions reviewed with patient and/or family. Voiced understanding. You may take ibuprofen 800 mg every 8 hours as needed for pain or you may take your mopey do not take both. Drink plenty of fluids. Take other pain medicine as prescribed. Take antibiotics as directed. You should start your medicine for diabetes as discussed with you by Dr. Alan. Call her office on Monday for follow-up appointment. He may also follow up with Dr. Leo for the kidney stones. Call his office for appointment. Return for worse pain, fever, vomiting, weakness, breathing problems or other concerns as needed. Scripts Hydrocodone Bit/Acetaminophen (Hydrocodone/Acetaminophen 5/325mg Tablet) 1 Tab Tab 1-2 EACH PO Q6H PRN for PAIN-MODERATE MDD 10, #10 TAB 0 Refills Prov: LACY MURRAY MD 06/30/18 Cephalexin (Cephalexin) 500 Mg Tablet 500 MG PO BID, #14 TAB 0 Refills Prov: LACY MURRAY MD 06/30/18 Copy Copies To 1: DARION ALAN DO Copies To 2: YAIMA LEO MD, TIMOTHY D MD Jun 30, 2018 10:58
[2018-06-30 11:17] LABS: ALANINE AMINOTRANSFERASE 35 U/L (0-55); ALBUMIN 4.4 GM/DL (3.2-4.5); ALKALINE PHOSPHATASE 46 U/L (40-136); BILIRUBIN,TOTAL 0.7 MG/DL (0.1-1.0); BUN/CREATININE RATIO 24; CALCIUM 9.4 MG/DL (8.5-10.1); CARBON DIOXIDE 25 MMOL/L (21-32); CHLORIDE 104 MMOL/L (98-107); CREATININE SERUM 1.24 MG/DL (0.60-1.30); GFR ESTIMATED > 60; GLUCOSE 231 MG/DL (70-105); POTASSIUM 4.1 MMOL/L (3.6-5.0); SODIUM 138 MMOL/L (135-145); TOTAL PROTEIN 7.1 GM/DL (6.4-8.2)
--- NOTE | 2018-06-30 11:50 | Diagnostic Imaging Report ---
PROCEDURE: CT urinary tract, rule out kidney stone. TECHNIQUE: Multiple contiguous axial images were obtained through the abdomen and pelvis without the use of intravenous contrast. INDICATION: Dark urine, flank pain. COMPARISON: None. FINDINGS: There is a 3 mm stone in the right UVJ with resultant mild hydronephrosis and hydroureter. No additional calculi are seen. There is no inflammatory change or abscess. Lung bases are clear. The gallbladder and remainder of the solid organs are intact. Course and caliber of the large and small bowel unremarkable. The appendix is normal. There are several diverticuli of the sigmoid colon without diverticulitis. Slight prostate enlargement seen. There is no hernia. Osseous structures are age-appropriate. IMPRESSION: 1. Mild right-sided hydronephrosis and hydroureter secondary to a 3 mm stone in the right UVJ. 2. Diverticulosis of the sigmoid colon without diverticulitis. 3. Slight prostate enlargement. Dictated by: Dictated on workstation # [id number]
[2018-06-30 12:14] LABS: BILIRUBIN,URINE NEGATIVE (NEGATIVE); GLUCOSE, URINE (UA) NEGATIVE (NEGATIVE); KETONES,URINE NEGATIVE (NEGATIVE); LEUKOCYTE ESTERASE ,URINE 1+ (NEGATIVE); NITRITE,URINE NEGATIVE (NEGATIVE); PH,URINE 5 (5-9); PROTEIN,URINE 1+ (NEGATIVE); UROBILINOGEN,URINE NORMAL (NORMAL)
[2018-06-30 12:15] LABS: BACTERIA,URINE TRACE /HPF; CLARITY,URINE CLEAR; COLOR,URINE YELLOW; SQUAMOUS EPITHELIAL CELL,UR RARE /HPF; WBC,URINE RARE /HPF
[2018-06-30] MEDS ORDERED: CEPH500T PO (12:45)
[2018-06-30] MEDS ORDERED: ACHD5005 PO (12:45)
[2018-06-30 12:59] VITALS: BP 142/95
== END 2018-06-30 12:59 | disposition home or self-care (01) ==
LOC: EDUNIT# 10:18 → ER 10:20
DX: N13.2 Hydronephrosis with renal and ureteral calculous obstruction (principal); R73.9 Hyperglycemia, unspecified; M10.9 Gout, unspecified; Z82.49 Family history of ischemic heart disease and other diseases of the circulatory system
CPT/HCPCS: 36415; 74176; 80053; 81000; 82962; 85025

== ENCOUNTER → 2019-10-11 | Outpatient (CLI) | payer MEDICARE, OTHER ==
[~2019-10-11] MED LIST changes: +ACHD5005 PO; +CEPH500T PO
== END ==
LOC: CARD 13:54
PROVIDERS: ATTEND Physician Assistant
DX: E11.9 Type 2 diabetes mellitus without complications (principal); I47.1 Supraventricular tachycardia; Z82.49 Family history of ischemic heart disease and other diseases of the circulatory system
CPT/HCPCS: 93306

== ENCOUNTER 2021-08-25 13:44 | Emergency (ER) | payer BC, OTHER ==
[~2021-08-25] VITALS: Ht 177 cm; Wt 79.0 kg
--- OUTSIDE RECORDS SUMMARY | 2021-08-25 13:49 | XMS REPORT | CCD ---
Author Author Daniel Alan D.O. Organization [facility] Address [address] [place] [address] Phone Care Team Providers Care Prop And Effects Designer Name Role Phone Radha Alan D.O., PP Unavailable CCM Unavailable Summary Purpose Interface Exchange Insurance Providers Payer name Policy type / Coverage type Covered libertarian ID Effective Begin Date Effective End Date Blue Cross Blue Shield Blue Cross/Blue Shield [id number] 2021 Unknown Family History Family History data not found Social History Social History Element Codes Description Effective Dates Marital status Unknown 08/16/[address]: [id number] Has never smoked or chewed tobacco 08/16/2011 Allergies, Adverse Reactions, Alerts Substance Reaction Codes Entered Date Inactivated Date Status * NO KNOWN FOOD ALLERGIES Unknown 08/16/2011 No Inactiv e Date Active * NO KNOWN DRUG ALLERGIES Unknown 08/16/2011 No Inactiv e Date Active * NO KNOWN ENVIRONMENTAL ALLERGIES Unknown 08/16/2011 N o Inactive Date Active Problems Condition Codes Effective Dates Condition Status Hypertension Unknown 07/27/2021 Active Hyperglycemia, unspecified ICD-10: R73.9 ICD-9: 790.29 01/25/2019 Active Hypertension ICD-10: I10 ICD-9: 401.9 07/27/2021 Active 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 inflammatory arthritis and tophaceous disease ICD-10: E79.0 ICD-9: 790.6 02/13/2019 Active Mixed hyperlipidemia ICD-10: E78.2 ICD-9: 272.2 12/26/2019 Active Encounter for general adult medical examination withou t abnormal findings ICD- 10: Z00.00 ICD-9: V70.9 02/29/2016 Active Gout, unspecified ICD-10: M10.9 ICD-9: 274.9 02/29/2016 Active Right knee pain ICD-10: M25.561 ICD-9: 719.46 03/08/2021 Active Penis disorder ICD-10: N48.9 ICD-9: 607.9 06/29/2020 Active Localized swelling, mass and lump, trunk ICD-10: R22.2 ICD-9: 786.6 04/18/2019 Active Family history of ischemic heart disease and other diseases of the circulatory system ICD-10: Z82.49 ICD-9: V17.3 02/13/2019 Active Encounter for therapeutic drug level monitoring ICD-10 : Z51.81 ICD-9: V58.83 04/23/2018 Active Hemorrhage of anus and rectum ICD-10: K62.5 ICD-9: 569.3 09/18/2017 Active Localized edema ICD-10: R60.0 ICD-9: 782.3 09/28/2016 Active Fever, unspecified ICD-10: R50.9 ICD-9: 780.60 09/15/2016 Active Myalgia ICD-10: M79.1 ICD-9: 729.1 09/15/2016 Active Viral infection, unspecified ICD-10: B34.9 ICD-9: 079.99 09/15/2016 Active Arthralgia ICD-9: 719.40 12/30/2014 Active Hyperuricemia ICD-9: 790.6 12/30/2014 Active ROUTINE MEDICAL EXAM ICD-9: V70.0 12/30/2014 Active GASTROENTERITIS ICD-9: 558.9 08/16/2011 Active ARTHRALGIA-MULTIPLE SITES ICD-9: 719.49 05/02/2011 Active Leg pain ICD-9: 729.5 05/02/2011 Active Hip pain, bilateral ICD-9: 719.45 12/13/2010 Active Low back pain ICD-9: 724.2 12/13/2010 Active Medications Medication Codes Instructions Start Date Stop Date Status Fill Instructions meloxicam 15 mg tablet RxNorm: 172520 TAKE 1 TABLET BY MOUTH EV IVANIA DAY 08/10/2021 09/08/2021 Active allopurinol 100 mg tablet RxNorm: 550793 TAKE 2 TABLETS BY MOUT H EVERY DAY 07/15/2021 10/12/2021 Active metformin ER 500 mg tablet,extended release 24 hr RxNorm: 86 0975 Take 1 Tablet(s) Oral QD 07/15/2021 10/12/2021 Active meloxicam 15 mg tablet RxNorm: 559231 TAKE 1 TABLET BY MOUTH EV IVANIA DAY 07/06/2021 07/06/2021 Inactive meloxicam 15 mg tablet RxNorm: 886346 TAKE 1 TABLET BY MOUTH EV IVANIA DAY 06/02/2021 06/02/2021 Inactive atorvastatin 10 mg tablet RxNorm: 395467 TAKE 1/2 TABLE T BY MOUTH ON Monday AND Monday04/21/2021 07/19/2021 Inactive metformin ER 500 mg tablet,extended release 24 hr RxNorm: 86 0975 Take 1 Tablet(s) Oral QD 04/21/2021 04/21/2021 Inactive allopurinol 100 mg tablet RxNorm: 974648 TAKE 2 TABLETS BY MOUT H EVERY DAY 04/21/2021 04/21/2021 Inactive atorvastatin 10 mg tablet RxNorm: 288308 TAKE 1/2 TABLE T BY MOUTH ON Monday AND Monday03/29/2021 03/29/2021 Inactive meloxicam 15 mg tablet RxNorm: 165145 TAKE 1 TABLET BY MOUTH EV IVANIA DAY 03/22/2021 04/20/2021 Inactive meloxicam 15 mg tablet RxNorm: 791877 TAKE 1 TABLET BY MOUTH EV IVANIA DAY 02/22/2021 02/22/2021 Inactive allopurinol 100 mg tablet RxNorm: 007943 TAKE 2 TABLETS BY MOUT H EVERY DAY 01/21/2021 01/21/2021 Inactive meloxicam 15 mg tablet RxNorm: 246024 TAKE 1 TABLET BY MOUTH EV IVANIA DAY 01/21/2021 01/21/2021 Inactive metformin ER 500 mg tablet,extended release 24 hr RxNorm: 86 0975 Take 1 Tablet(s) Oral QD 01/21/2021 01/21/2021 Inactive metformin ER 500 mg tablet,extended release 24 hr RxNorm: 86 0975 1 Tablet(s) Oral QD 12/29/2020 12/29/2020 Inactive Due for fasting labs/follow up before 90 day supply allopurinol 100 mg tablet RxNorm: 321387 TAKE 2 TABLETS BY MOUT H EVERY DAY 11/08/2020 11/08/2020 Inactive atorvastatin 10 mg tablet RxNorm: 437029 TAKE 1/2 TABLE T BY MOUTH ON Monday AND Monday11/08/2020 11/08/2020 Inactive metformin ER 500 mg tablet,extended release 24 hr RxNorm: 86 0975 TAKE 1 TABLET BY MOUTH EVERY DAY 09/21/2020 12/28/2020 Inactive meloxicam 15 mg tablet RxNorm: 761190 TAKE 1 TABLET BY MOUTH EV IVANIA DAY 08/24/2020 08/24/2020 Inactive allopurinol 100 mg tablet RxNorm: 001560 TAKE 2 TABLETS BY MOUT H EVERY DAY 08/24/2020 11/07/2020 Inactive atorvastatin 10 mg tablet RxNorm: 556538 1/2 Tablet(s) Oral MWF 11/07/2020 Inactive metformin ER 500 mg tablet,extended release 24 hr RxNorm: 86 0975 TAKE 1 TABLET BY MOUTH EVERY DAY 06/23/2020 09/20/2020 Inactive allopurinol 100 mg tablet RxNorm: 443201 TAKE 2 TABLETS BY MOUT H EVERY DAY 04/24/2020 07/22/2020 Inactive meloxicam 15 mg tablet RxNorm: 290652 TAKE 1 TABLET BY MOUTH EV IVANIA DAY 04/24/2020 07/22/2020 Inactive metformin ER 500 mg tablet,extended release 24 hr RxNorm: 86 0975 TAKE 1 TABLET BY MOUTH EVERY DAY 03/23/2020 06/20/2020 Inactive allopurinol 100 mg tablet RxNorm: 571819 TAKE 2 TABLETS BY MOUT H EVERY DAY 02/16/2020 04/23/2020 Inactive allopurinol 100 mg tablet RxNorm: 088305 TAKE 2 TABLETS BY MOUT H EVERY DAY 01/16/2020 02/15/2020 Inactive metformin ER 500 mg tablet,extended release 24 hr RxNorm: 86 0975 TABLET(S) 1 TABLET(S) PO QD 12/16/2019 03/14/2020 Inactive Needs updated la bs before further refillsPatient requests 90 days supply allopurinol 100 mg tablet RxNorm: 505333 TAKE 2 TABLETS BY MOUT H EVERY DAY 12/16/2019 01/14/2020 Inactive meloxicam 15 mg tablet RxNorm: 143943 TAKE 1 TABLET BY MOUTH EV IVANIA DAY 12/16/2019 06/28/2020 Inactive meloxicam 15 mg tablet RxNorm: 071304 TAKE 1 TABLET BY MOUTH EV IVANIA DAY 11/04/2019 12/15/2019 Inactive allopurinol 100 mg tablet RxNorm: 388049 TAKE 2 TABLETS BY MOUT H EVERY DAY 09/09/2019 12/07/2019 Inactive metformin ER 500 mg tablet,extended release 24 hr RxNorm: 86 0975 TABLET(S) 1 TABLET(S) PO QD 09/09/2019 12/15/2019 Inactive Needs updated la bs before further refillsPatient requests 90 days supply meloxicam 15 mg tablet RxNorm: 971485 TAKE 1 TABLET BY MOUTH EV IVANIA DAY 08/01/2019 10/29/2019 Inactive allopurinol 100 mg tablet RxNorm: 709535 TAKE 2 TABLETS BY MOUT H EVERY DAY 08/01/2019 08/30/2019 Inactive meloxicam 15 mg tablet RxNorm: 846819 1 Tablet(s) PO QD 04/25/2019 Inactive allopurinol 100 mg tablet RxNorm: 239483 2 TABLET(S) PO QD 04/24/2007/22/2019 Inactive prednisone 20 mg tablet RxNorm: 656111 1 Tablet(s) PO B ID for 4 days then 1 po daily for 4 days 04/18/2019 08/18/2019 Inactive allopurinol 100 mg tablet RxNorm: 991645 2 TABLET(S) PO QD 03/28/2005/26/2019 Inactive Patient requests 90 days s upply metformin ER 500 mg tablet,extended release 24 hr RxNorm: 86 0975 TABLET(S) 1 TABLET(S) PO QD NEEDS UPDATED FASTING LABS 02/26/2019 09/08/2019 Inact vielka Needs updated labs before further refillsPatient requests 90 days supply allopurinol 100 mg tablet RxNorm: 316692 2 TABLET(S) PO QD 02/22/2003/27/2019 Inactive metformin ER 500 mg tablet,extended release 24 hr RxNorm: 86 0975 Tablet(s) 1 TABLET(S) PO QD NEEDS UPDATED FASTING LABS 02/12/2019 02/25/2019 Inact vielka Needs updated labs before further refills metformin ER 500 mg tablet,extended release 24 hr RxNorm: 86 0975 Tablet(s) 1 TABLET(S) PO QD NEEDS UPDATED FASTING LABS 01/25/2019 02/07/2019 Inact vielka Needs updated labs before further refills metformin ER 500 mg tablet,extended release 24 hr RxNorm: 86 0975 1 TABLET(S) PO QD NEEDS UPDATED FASTING LABS 12/24/2018 01/22/2019 Inactive Ne eds updated labs before further refills metformin ER 500 mg tablet,extended release 24 hr RxNorm: 86 0975 1 Tablet(s) PO QD NEEDS UPDATED FASTING LABS 11/26/2018 12/23/2018 Inactive Ne eds updated labs before further refills allopurinol 100 mg tablet RxNorm: 997392 2 Tablet(s) PO QD 11/27/19 19 02/20/2019 Inactive metformin ER 500 mg tablet,extended release 24 hr RxNorm: 86 0975 1 TABLET(S) PO QD NEEDS UPDATED FASTING LABS 10/29/2018 11/25/2018 Inactive metformin ER 500 mg tablet,extended release 24 hr RxNorm: 86 0975 1 Tablet(s) PO QD Needs updated fasting labs 09/26/2018 10/25/2018 Inactive allopurinol 100 mg tablet RxNorm: 339264 2 TABLET(S) PO QD 08/22/19 19 11/19/2018 Inactive allopurinol 100 mg tablet RxNorm: 455299 2 TABLET(S) PO QD 05/23/20 18 08/20/2018 Inactive metformin ER 500 mg tablet,extended release 24 hr RxNorm: 86 0975 1 Tablet(s) PO QD 04/25/2018 07/23/2018 Inactive metformin ER 500 mg tablet,extended release 24 hr RxNorm: 86 0975 1 Tablet(s) PO QD 04/25/2018 04/24/2018 Inactive allopurinol 100 mg tablet RxNorm: 255049 2 Tablet(s) PO QD 04/20/20 18 05/19/2018 Inactive allopurinol 100 mg tablet RxNorm: 569971 2 Tablet(s) PO QD 04/02/20 18 04/16/2018 Inactive allopurinol 100 mg tablet RxNorm: 985184 2 Tablet(s) PO QD 03/08/20 18 2018 Inactive Mobic 15 mg tablet RxNorm: 672851 1 TABLET(S) PO QD 03/07/20182017 Inactive [SAVINGS FOR NON-COVERED DRUGS -- BIN:00 3585, PCN: ASPROD1, Group: XXXXX, ID# [id number], Questions: . THIS IS NOT INSURANCE.] allopurinol 100 mg tablet RxNorm: 132532 2 Tablet(s) PO QD 10/28/19 18 03/08/2018 Inactive allopurinol 100 mg tablet RxNorm: 251833 2 Tablet(s) PO QD 04/03/20 17 10/27/2017 Inactive Mobic 15 mg tablet RxNorm: 593880 1 Tablet(s) PO QD 03/01/20172017 Inactive [SAVINGS FOR NON-COVERED DRUGS -- BIN:00 3585, PCN: ASPROD1, Group: XXXXX, ID# [id number], Questions: . THIS IS NOT INSURANCE.] hydrochlorothiazide 12.5 mg capsule RxNorm: 441503 1 Capsule(s) PO QAM 09/28/2016 09/17/2017 Inactive allopurinol 100 mg tablet RxNorm: 979545 2 Tablet(s) PO QD 09/15/19 17 04/03/2017 Inactive allopurinol 100 mg tablet RxNorm: 325118 2 Tablet(s) PO QD 04/04/20 16 09/14/2016 Inactive allopurinol 100 mg tablet RxNorm: 218230 2 Tablet(s) PO QD 03/01/20 16 04/03/2016 Inactive Mobic 15 mg tablet RxNorm: 978375 1 Tablet(s) PO QD 03/01/20162016 Inactive [SAVINGS FOR NON-COVERED DRUGS -- BIN:00 3585, PCN: ASPROD1, Group: XXXXX, ID# [id number], Questions: . THIS IS NOT INSURANCE.] allopurinol 100 mg tablet RxNorm: 356551 2 Tablet(s) PO QD Needs routine appointment 02/17/2016 04/04/2016 Inactive allopurinol 100 mg tablet RxNorm: 042140 2 Tablet(s) PO QD Needs routine appointment 01/18/2016 02/17/2016 Inactive allopurinol 100 mg tablet RxNorm: 725401 2 Tablet(s) PO QD Needs routine appointment 11/16/2015 01/18/2016 Inactive Mobic 15 mg tablet RxNorm: 765284 1 TABLET(S) PO QD . 11/13/201502/11 Inactive [SAVINGS FOR NON-COVERED DRUGS -- BIN:00 3585, PCN: ASPROD1, Group: XXXXX, ID# [id number], Questions: . THIS IS NOT INSURANCE.] Mobic 15 mg tablet RxNorm: 047383 1 Tablet(s) PO QD . 08/17/201510/14 Inactive [SAVINGS FOR NON-COVERED DRUGS -- BIN:00 3585, PCN: ASPROD1, Group: XXXXX, ID# [id number], Questions: . THIS IS NOT INSURANCE.] allopurinol 300 mg tablet RxNorm: 734310 Tablet(s) 1 TA BLET(S) PO QD TAKE 1 BY MOUTH DAILY 05/04/2015 11/16/2015 Inactive Mobic 15 mg tablet RxNorm: 083597 1 Tablet(s) PO QD Ne eds seen for routine appointment . 01/26/2015 08/17/2015 Inactive [SAVINGS FOR NON -COVERED DRUGS -- BIN:072038, PCN: ASPROD1, Group: XXXXX, ID# [id number], Questions: . THIS IS NOT INSURANCE.] Mobic 15 mg tablet RxNorm: 060925 1 Tablet(s) PO QD Ne eds seen for routine appointment . 12/24/2014 01/26/2015 Inactive [SAVINGS FOR NON -COVERED DRUGS -- BIN:343665, PCN: ASPROD1, Group: XXXXX, ID# [id number], Questions: . THIS IS NOT INSURANCE.] Mobic 15 mg tablet RxNorm: 427112 1 Tablet(s) PO QD Ne eds seen for routine appointment . 11/21/2014 12/20/2014 Inactive allopurinol 300 mg tablet RxNorm: 694494 Tablet(s) 1 TA BLET(S) PO QD TAKE 1 BY MOUTH DAILY 10/28/2014 05/04/2015 Inactive Mobic 15 mg tablet RxNorm: 633435 1 TABLET(S) PO QD TA KE 1 TABLET BY MOUTH DAILY . 05/23/2014 08/20/2014 Inactive Mobic 15 mg tablet RxNorm: 928292 1 Tablet(s) PO QD TA KE 1 TABLET BY MOUTH DAILY . 05/22/2014 11/21/2014 Inactive allopurinol 300 mg tablet RxNorm: 326783 1 TABLET(S) PO QD TAKE 1 BY MOUTH DAILY 05/02/2014 10/28/2014 Inactive cyclobenzaprine 10 mg tablet RxNorm: 428371 1 Tablet(s) PO TID Take one half to one by mouth three times a day as needed for muscle pain 11/01/2013 Inactive allopurinol 300 mg tablet RxNorm: 234267 1 Tablet(s) PO QD Take 1 by mouth daily 11/01/2013 04/29/2014 Inactive Mobic 15 mg tablet RxNorm: 383296 1 Tablet(s) PO QD TA KE 1 TABLET BY MOUTH DAILY . 11/01/2013 04/29/2014 Inactive allopurinol 300 mg tablet RxNorm: 525050 1 Tablet(s) PO QD Needs appt--not seen since 201110/14/2013 10/31/2013 Inactive Mobic 15 mg tablet RxNorm: 928158 Tablet(s) PO TAKE 1 TABLET BY MOUTH DAILY Last refill until appt. is made to see 10/14/2013 10/31/2013 Inactive Mobic 15 mg tablet RxNorm: 189951 1 Tablet(s) PO QD Ne eds appt---not seen since 201109/10/2013 10/14/2013 Inactive allopurinol 300 mg tablet RxNorm: 232846 1 Tablet(s) PO QD Needs appt--not seen since 201109/10/2013 10/09/2013 Inactive Mobic 15 mg tablet RxNorm: 144006 1 Tablet(s) PO QD 03/04/20132013 Inactive allopurinol 300 mg tablet RxNorm: 608922 1 Tablet(s) PO QD 03/04/20 13 08/30/2013 Inactive allopurinol 300 mg tablet RxNorm: 826020 1 Tablet(s) PO QD 10/23/19 13 02/18/2013 Inactive allopurinol 300 mg tablet RxNorm: 087496 1 Tablet(s) PO QD 06/11/20 12 10/22/2012 Inactive Mobic 15 mg tablet RxNorm: 464859 1 Tablet(s) PO QD 05/30/20122012 Inactive Mobic 15 mg tablet RxNorm: 343398 1 Tablet(s) PO QD 05/30/20122012 Inactive allopurinol 300 mg tablet RxNorm: 365310 1 Tablet(s) PO QD 01/05/2005/03/2012 Inactive Mobic 15 mg tablet RxNorm: 313698 1 Tablet(s) PO QD 01/05/20122011 Inactive Mobic 15 mg Tab RxNorm: 116534 1 Tablet(s) PO QD 08/16/2011 01/05/2012 Inactive allopurinol 300 mg Tab RxNorm: 603091 1 Tablet(s) PO QD 08/16/2011 Inactive Daypro 600 mg Tab RxNorm: 164430 2 Tablet(s) PO QD 07/27/2011 012 Inactive allopurinol 100 mg Tab RxNorm: 252817 1 Tablet(s) PO QD 07/27/2011 Inactive Flexeril 10 mg Tab RxNorm: 943260 1 Tablet(s) PO TID 12/13/201012/19 Inactive aspirin 81 mg tablet RxNorm: 437496 1 Tablet(s) PO QD 02/13/201909/2018 Inactive meloxicam 15 mg tablet RxNorm: 046026 1 Tablet(s) PO QD 04/25/2019 Inactive Fish Oil 360 mg-1,200 mg capsule,delayed release RxNorm: 1 Capsule(s) PO QD 07/27/2021 07/26/2021 Inactive allopurinol 100 mg tablet RxNorm: 296304 2 Tablet(s) PO QD 11/16/19 16 11/15/2015 Inactive Medication Administered No Medication Administered data Immunizations No Immunization data Results No Results data Procedures Procedure Codes Date INFLUENZA ASSAY W/OPTIC CPT-4: 11124 09/15/2016 Vital Signs Date Vital 07/27/2021 Blood Pressure 1: 132/68 Code: 8480-6 BMI: 25.5 Code: 38202-2 Heart Rate 1: 100 bpm Height: 5'10" Code: 8302-2 Respiratory Rate: 17 bpm SpO2: 97% Temperature: 36.2 (C) / 97.1 (F) Weight: 178 lbs Code: 87271-0 03/08/2021 Blood Pressure 1: 126/76 Code: 8480-6 BMI: 24.7 Code: 94547-4 Heart Rate 1: 76 bpm Height: 5'10" Code: 8302-2 Respiratory Rate: 20 bpm SpO2: 98% Temperature: 36.6 (C) / 97.9 (F) Weight: 172 lbs Code: 94043-8 06/29/2020 Blood Pressure 1: 136/78 Code: 8480-6 Heart Rate 1: 80 bpm Respiratory Rate: 16 bpm SpO2: 97% Temperature: 36.7 (C) / 98.1 (F) We ight: 170 lbs Code: 98963-3 08/19/2019 Blood Pressure 1: 126/82 Code: 8480-6 BMI: 24.7 Code: 19749-0 Heart Rate 1: 68 bpm Height: 5'10" Code: 8302-2 Respiratory Rate: 16 bpm SpO2: 99% Temperature: 36.6 (C) / 97.9 (F) Weight: 172 lbs Code: 20414-1 04/18/2019 Blood Pressure 1: 124/78 Code: 8480-6 Heart Rate 1: 72 bpm Respiratory Rate: 18 bpm SpO2: 98% Temperature: 36.8 (C) / 98.2 (F) We ight: 175 lbs Code: 06158-4 02/13/2019 Blood Pressure 1: 122/70 Code: 8480-6 Heart Rate 1: 60 bpm Respiratory Rate: 20 bpm SpO2: 96% Temperature: 36.6 (C) / 97.8 (F) We ight: 178 lbs Code: 26697-8 04/23/2018 Blood Pressure 1: 116/78 Code: 8480-6 BMI: 25.3 Code: 23520-6 Heart Rate 1: 64 bpm Height: 5'10" Code: 8302-2 Respiratory Rate: 20 bpm SpO2: 98% Temperature: 36.9 (C) / 98.4 (F) Weight: 176 lbs Code: 57253-3 09/18/2017 Blood Pressure 1: 144/86 Code: 8480-6 BMI: 26.1 Code: 98852-2 Heart Rate 1: 92 bpm Height: 5'10" Code: 8302-2 Respiratory Rate: 20 bpm Temperat ure: 36.6 (C) / 97.8 (F) Weight: 182 lbs Code: 84192-5 09/28/2016 Blood Pressure 1: 136/86 Code: 8480-6 BMI: 25.1 Code: 91395-5 Heart Rate 1: 84 bpm Height: 5'10" Code: 8302-2 Respiratory Rate: 20 bpm SpO2: 97% Temperature: 36.9 (C) / 98.5 (F) Weight: 175 lbs Code: 52764-8 09/15/2016 Blood Pressure 1: 142/88 Code: 8480-6 BMI: 25.7 Code: 55449-1 Heart Rate 1: 104 bpm Height: 5'10" Code: 8302-2 Respiratory Rate: 20 bpm SpO2: 98% Temperature: 37.6 (C) / 99.7 (F) Weight: 179 lbs Code: 54637-2 03/01/2016 Blood Pressure 1: 118/78 Code: 8480-6 BMI: 25.4 Code: 64155-6 Heart Rate 1: 104 bpm Height: 5'10" Code: 8302-2 Respiratory Rate: 22 bpm SpO2: 98% Temperature: 36.1 (C) / 96.9 (F) Weight: 177 lbs Code: 53003-2 12/30/2014 Blood Pressure 1: 128/78 Code: 8480-6 BMI: 25.0 Code: 88055-7 Heart Rate 1: 84 bpm Height: 5'10" Code: 8302-2 Respiratory Rate: 20 bpm Temperat ure: 36.7 (C) / 98.0 (F) Weight: 174 lbs Code: 78430-3 11/01/2013 Blood Pressure 1: 122/78 Code: 8480-6 BMI: 25.5 Code: 64147-4 Heart Rate 1: 80 bpm Height: 5'10" Code: 8302-2 Respiratory Rate: 20 bpm Temperat ure: 36.8 (C) / 98.2 (F) Weight: 178 lbs Code: 77676-3 08/16/2011 Blood Pressure 1: 122/78 Code: 8480-6 BMI: 24.0 Code: 70609-9 Heart Rate 1: 76 bpm Height: 5'10" Code: 8302-2 Respiratory Rate: 20 bpm Temperat ure: 36.9 (C) / 98.4 (F) Weight: 167 lbs Code: 44712-8 05/02/2011 Blood Pressure 1: 128/72 Code: 8480-6 Heart Rate 1: 58 bpm Weight: 164 lbs Code: 42068-5 12/13/2010 Blood Pressure 1: 122/64 Code: 8480-6 Te mperature: 36.6 (C) / 97.8 (F) Weight: 165 lbs Code: 70769-1 Functional Status No Functional Status data Reason For Visit Reason For Visit Effective Dates Notes follow up 07/27/2021 patient had labs dra healy at [facility] [place] lab this morning. no results in chart. follow up 03/08/2021 follow up 06/29/2020 follow up 12/26/2019 well man exam (40-65 years) 08/19/2019 Annual Welln ess pain 04/18/2019 follow up 02/13/2019 follow up 04/23/2018 hematochezia 09/18/2017 edema 09/28/2016 myalgias 09/15/2016 well man exam (40-65 years) 03/01/2016 Wellness-Pat ient is due for labs well man exam (40-65 years) 12/30/2014 Refill medic ations arthralgia(s) 11/01/2013 Refill medications follow up 08/16/2011 discuss labs pain, limb 05/02/2011 hx of pain in December, t he pain has gotten worse. it is constant in both legs and now in the feet. Big toe feels like needles in it. Bothering him during sleep.Hx of gout in family. joint complaint 12/13/2010 hips and back pain Encounters Encounter Performer Location Codes Date () OFFICE/OUTPATIENT VISIT EST Diagnosis: Mixed hyperlipidemia[ICD10: E78.2] Diagnosis: 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 inflammatory arthritis and tophaceous disease[ICD10: E79.0] Diagnosis: Hyperglycemia, unspecified[ICD10: R73.9] Diagnosis: Hypertension[ICD10: I10] Radha FITCH [facility] CPT-4: 23416 07/27/2021 ([id number]) PREV VISIT EST AGE 40-64 Diagnosis: Encounter for general adult medical examination without abnormal findings[ICD10: Z00.00] Diagnosis: Hyperglycemia, unspecified[ICD10: R73.9] Diagnosis: Gout, unspecified[ICD10: M10.9] Diagnosis: Mixed hyperlipidemia[ICD10: E78.2] Diagnosis: Right knee pain[ICD10: M25.561] Radha ALAN DO [facility] CPT-4: 94730 03/08/2021 ([id number]) OFFICE/OUTPATIENT VISIT EST Diagnosis: Hyperglycemia, unspecified[ICD10: R73.9] Diagnosis: Mixed hyperlipidemia[ICD10: E78.2] Diagnosis: Penis disorder[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] Radha ALAN Donay [facility] CPT-4: 46485 06/29/2020 ([id number]) OFFICE/OUTPATIENT VISIT EST Diagnosis: Hyperglycemia, unspecified[ICD10: R73.9] Diagnosis: Mixed hyperlipidemia[ICD10: E78.2] [facility]: 55710 12/26/2019 ([id number]) PREV VISIT EST AGE 40-64 Diagnosis: Encounter for general adult medical examination without abnormal findings[ICD10: Z00.00] Diagnosis: Gout, unspecified[ICD10: M10.9] Diagnosis: Hyperglycemia, unspecified[ICD10: R73.9] Radha ALAN Donay [facility] CPT-4: 89617 08/19/2019 ([id number]) OFFICE/OUTPATIENT VISIT EST Diagnosis: Localized swelling, mass and lump, trunk[ICD10: R22.2] Radha ALAN Donay [facility] CPT-4: 85833 04/18/2019 ([id number]) OFFICE/OUTPATIENT VISIT EST Diagnosis: 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 inflammatory arthritis and tophaceous disease[ICD10: E79.0] Diagnosis: Hyperglycemia, unspecified[ICD10: R73.9] Diagnosis: Family history of ischemic heart disease and other diseases of the circulatory system[ICD10: Z82.49] Radha Berger Donay [facility] CPT-4: 95538 02/13/2019 ([id number]) OFFICE/OUTPATIENT VISIT EST Diagnosis: Gout, unspecified[ICD10: M10.9] Diagnosis: Encounter for therapeutic drug level monitoring[ICD10: Z51.81] Trinity ALAN DO [facility] CPT-4: 56925 04/23/2018 ([id number]) OFFICE/OUTPATIENT VISIT EST Diagnosis: Hemorrhage of anus and rectum[ICD10: K62.5] Radha ALAN DO [facility] CPT-4: 33259 09/18/2017 ([id number]) OFFICE/OUTPATIENT VISIT EST Diagnosis: Localized edema[ICD10: R60.0] Diagnosis: Gout, unspecified[ICD10: M10.9] Radha ALAN DO [facility] CPT-4: 14704 09/28/2016 ([id number]) OFFICE/OUTPATIENT VISIT EST Diagnosis: Fever, unspecified[ICD10: R50.9] Diagnosis: Myalgia[ICD10: M79.1] Diagnosis: Viral infection, unspecified[ICD10: B34.9] Thuy ALAN DO [facility] CPT-4: 50108 09/15/2016 ([id number]) PREV VISIT EST AGE 40-64 Diagnosis: Encounter for general adult medical examination without abnormal findings[ICD10: Z00.00] Diagnosis: Gout, unspecified[ICD10: M10.9] Thuy ALAN DO [facility] CPT-4: 57261 03/01/2016 ([id number]) PREV VISIT EST AGE 40-64 Diagnosis: ROUTINE MEDICAL EXAM[ICD9: V70.0] Diagnosis: Arthralgia[ICD9: 719.40] Diagnosis: Hyperuricemia[ICD9: 790.6] Radha Dayanna RADHA SharonAneesh NÉSTOR WILLINGH[facility]ER Donay [facility] CPT-4: 84967 12/30/2014 ([id number]) PREV VISIT EST AGE 40-64 Diagnosis: ROUTINE MEDICAL EXAM[ICD9: V70.0] Diagnosis: Arthralgia[ICD9: 719.40] Diagnosis: Hyperuricemia[ICD9: 790.6] Lorna GOMEZQUELINE SharonAneesh [facility] Donay [facility] CPT-4: 04540 11/01/2013 OFFICE/OUTPATIENT VISIT EST Diagnosis: ARTHRALGIA-MULTIPLE SITES[ICD9: 719.49] Diagnosis: Hyperuricemia[ICD9: 790.6] Diagnosis: GASTROENTERITIS[ICD9: 558.9] Radha ALAN [employer] CPT-4: 27772 08/16/2011 OFFICE/OUTPATIENT VISIT EST Diagnosis: JOINT PAIN-PELVIS[ICD9: 719.45] Diagnosis: Leg pain[ICD9: 729.5] Diagnosis: ARTHRALGIA-MULTIPLE SITES[ICD9: 719.49] Radha ALAN [employer] CPT-4: 13372 05/02/2011 ([id number]) OFFICE/OUTPATIENT VISIT EST Radha ALAN [employer] CPT-4: 04232 12/13/2010 Plan of Care Planned Activity Notes Codes Status Date Visit Diagnosis Plan: Hyperglycemia, unspecified Discu ssion: Check HbA1C ICD-9 : 790.29 ICD-10 : R73.9 07/27/2021 Visit Diagnosis Plan: Mixed hyperlipidemia Discussion: Mediterranean diet Combination of cardio and weight bearing exercise Check CMP and Lipids ICD-9 : 272.2 ICD-10 : E78.2 07/27/2021 Visit Diagnosis Plan: Hypertension Discussion: Stable ICD-9 : 401.9 ICD-10 : I10 07/27/2021 Visit Diagnosis Plan: Hyperuricemia with out signs of inflammatory arthritis and tophaceous disease Discussion: Check uric acid ICD-9 : 790.6 ICD-10 : E79.0 07/27/2021 Appointment: Radha Alan WPtel[facility] [address] [facility] [facility] 07/27 FOLLOW UP 07/27/2021 Visit Diagnosis Plan: Encounter for [facility] adult medical examination without abnormal findings Discussion: Mediterranean diet Combinati on of cardio and weight bearing exercise Lab discussed Had both COVID vaccines Up to date on colonsocopy Saw Dr. Teague in May 2020 and had PSA and prostate checked ICD-9 : V70.9 ICD-10 : Z00.00 03/08/2021 Visit Diagnosis Plan: Gout, unspecified Discussion: Ad d uric acid to lab ICD-9 : 274.9 ICD-10 : M10.9 03/08/2021 Visit Diagnosis Plan: Right knee pain Discussion: Incr ease Vitamin D to 5000u daily Straight leg raises and bicycling or elliptical See ortho if persists ICD-9 : 719.46 ICD-10 : M25.561 03/08/2021 Visit Diagnosis Plan: Hyperglycemia, unspecified Discu ssion: Add HbA1C to lab ICD-9 : 790.29 ICD-10 : R73.9 03/08/2021 Appointment: Radha Alantel: [address] [place], [place] [id number] [place] Annual Well Visit 03/08/2021 Appointment: Radha Alan WPtel: [address] [place], [place] [phone] [place] RESCHEDULED 02/22/2021 Visit Diagnosis Plan: Mixed hyperlipidemia Discussion: Mediterranean diet Combination of cardio and weight bearing exercise Add lipitor low dose 3 times a week and repeat lipids in 6mos Add Vitamin D 1000u daily ICD-9 : 272.2 ICD-10 : E78.2 06/29/2020 Visit Diagnosis Plan: Penis disorder Discussion: Refer ral to urology ICD-9 : 607.9 ICD-10 : N48.9 06/29/2020 Visit Diagnosis Plan: Hyperglycemia, unspecified Discu ssion: Lab discussed Accuchecks daily Continue current meds Check CMP and HbA1C in 6mos then fwup ICD-9 : 790.29 ICD-10 : R73.9 06/29/2020 Appointment: Radha Alan WPtel: [address] [place], [place] [id number] [place] will bring new insurance to [facility] monday FOLLOW U P 06/29/2020 Care Plan: Referral Order SNOMED-CT : [id number] Pending 06/29/2020 Visit Diagnosis Plan: Hyperglycemia, unspecified Discu ssion: Lab discussed Accuchecks daily Continue current meds Check CMP and HbA1C in 3mos then fwup ICD-9 : 790.29 ICD-10 : R73.9 12/26/2019 Visit Diagnosis Plan: Mixed hyperlipidemia Discussion: Mediterranean diet Combination of cardio and weight bearing exercise ICD-9 : 272.2 ICD-10 : E78.2 12/26/2019 Appointment: Radha Alan WPtel: [address] [place] [address] [place] TELEMEDICINE 12/26/2019 Visit Diagnosis Plan: Hyperglycemia, unspecified Discu ssion: Check HbA1C ICD-9 : 790.29 ICD-10 : R73.9 08/19/2019 Visit Diagnosis Plan: Gout, unspecified Discussion: Ch adina uric acid ICD-9 : 274.9 ICD-10 : M10.9 08/19/2019 Visit Diagnosis Plan: Encounter for [facility] adult medical examination without abnormal findings Discussion: Mediterranean diet Combinati on of cardio and weight bearing exercise Update labs ICD-9 : V70.9 ICD-10 : Z00.00 08/19/2019 Appointment: Radha Alan WPtel: [address] [place] [address] Annual Well Visit 08/19/2019 Visit Diagnosis Plan: Localized swelling, mass and lum p, trunk Discussion: Suspect vs lymph node Supportive care--prednisone and see if goes down Notify if rash, redness, fever, etc develop Consider US if persists ICD-9 : 786.6 ICD-10 : R22.2 04/18/2019 Appointment: Radha Alan WPtel: [address] [place] [address] ACUTE ILLNESS 04/18/2019 Patient Education: prednisone- [employer] Coupon [phone] [email or web address] Completed 04/18/2019 Visit Diagnosis Plan: Family history of ischemic heart disease and other diseases of the circulatory system Discussion: See cardiology for updated screening ICD-9 : V17.3 ICD-10 : Z82.49 02/13/2019 Visit Diagnosis Plan: Hyperglycemia, unspecified Discu ssion: Lab discussed Accuchecks daily Continue current meds Check CMP and HbA1C in 6mos then fwup ICD-9 : 790.29 ICD-10 : R73.9 02/13/2019 Visit Diagnosis Plan: Hyperuricemia with out signs of inflammatory arthritis and tophaceous disease Discussion: Lab discussed Continue allop urinol at current dose ICD-9 : 790.6 ICD-10 : E79.0 02/13/2019 Appointment: Radha Alan WPtel: [address] [place] [address] FOLLOW UP 02/13/2019 Appointment: Trinity Cochran [address] [facility] [place] CANCELED 02/04/2019 Care Plan: COMPREH[place] : 206[address]-3 Pending 01/25/2019 Care Plan: COMPLETE CBC W/AUTO DIFF WBC LOINC : 24990-5 Pending 01/25/2019 Care Plan: A1C HPLC LOINC : 36989-6 Pending 01/25/2019 Care Plan: ASSAY OF BLOOD/URIC ACID Pendi 01/25/2019 Visit Diagnosis Plan: Encounter for therapeutic drug l evel monitoring Discussion: fasting blood work ordered to be completed at [facility] today. discussed wth patient to dc meloxicam and to use prn to reduce the risk of gi bleeds since taking baby asa. patient verbalized understanding. ICD-9 : V58.83 ICD-10 : Z51.81 04/23/2018 Visit Diagnosis Plan: Gout, unspecified Discussion: wi ll have updated blood work. order written out to be completed at [facility] today. has minimal gout attacks but can feel the "soreness" when he misses a dose. ICD-9 : 274.9 ICD-10 : M10.9 04/23/2018 Appointment: Trinity Cochran [address] [place], [place] [id number] MEDICATION REVIEW 04/23/2018 Patient Education: Patient Medication Summary Completed 04/23/2018 Visit Diagnosis Plan: Hemorrhage of anus and rectum Di scussion: Referral to Dr. Meyers for colonoscopy Notify if worsening symptoms--right now has just been with morning BM--bright red, painless on stool and toilet paper ICD-9 : 569.3 ICD-10 : K62.5 09/18/2017 Appointment: Radha Alan WPtel: [address] [facility] ACUTE ILLNESS 09/18/2017 Patient Education: Patient Medication Summary Completed 09/18/2017 Appointment: Radha Alantel: [facility] [place] 3/2 lm`sl 3/3 lm `sl 3/6 canceled~sl CANCELED 10/17/2016 Visit Diagnosis Plan: Localized edema Discussion: Comp ression socks HCTZ low dose Diet: Low Sodium Follow Up: 3 weeks ICD-9 : 782.3 ICD-10 : R60.0 09/28/2016 Visit Diagnosis Plan: Gout, unspecified Discussion: Ch adina CMP, uric acid now ICD-9 : 274.9 ICD-10 : M10.9 09/28/2016 Appointment: Radha Alan WPtel: [address] [place], [place] [phone] 09/27 confirmed`sl ACUTE ILLNESS 09/28/2016 Patient Education: Patient Medication Summary Completed 09/28/2016 Visit Diagnosis Plan: Fever, unspecified Discussion: F marcio - negative Exam unremarkable Likely viral illness Supportive care reviewed Follow up PRN ICD-9 : 780.60 ICD-10 : R50.9 09/15/2016 Appointment: Thuy Lauren [address] [place], [place] [id number] ACUTE ILLNESS 09/15/2016 Patient Education: Patient Medication Summary Completed 09/15/2016 Visit Plan: Order req for fasting labs t o [facility] given - CBC, CMP, Lipids, PSA, TSH, Free T4, and then uric acid Patient to call us in the next few days with who he wants to see for first screening colonoscopy - did defer the prostate exam in office today since he will be having the c-scope soon He is to find out date of last tdap and will update if needed He is also going to call his insurance about shingles vaccine since he is almost 51 to see if coverage at 51y/o or 61y/o Refills given Follow up at least annually for wellness visit 03/01/2016 Appointment: Thuy Lauren [address] [place], [place] [phone] Annual Well Visit 03/01/2016 Patient Education: Patient Medication Summary Completed 03/01/2016 Visit Plan: Check fasting lab Low purine diet and check uric acid as well as DARREN, RA, ASO, B12 12/30/2014 Appointment: Radha Alan WPtel: [address] [place] [address] left vm 12/29... left vm 12/30 Annual Well Visit 0 12/30/2014 Patient Education: Patient Medication Summary Completed 12/30/2014 Appointment: Lorna Choudhary WPtel: [address] [place] [address] FOLLOW UP 11/01/2013 Patient Education: Patient Medication Summary Completed 11/01/2013 Visit Plan: Increase allopurinol to 300m g po daily Change Daypro to Mobic 15mg po daily Add daily fish oil 1gm Add Vitamin D3 1000mg daily 08/16/2011 Appointment: Radha Alan WPtel: [address] [place] [address] FOLLOW UP 08/16/2011 Patient Education: Patient Medication Summary Completed 08/16/2011 Appointment: Radha Alan WPtel: [address] [place] [address] FOLLOW UP 08/09/2011 Appointment: Radha Alan WPtel: [address] [place] [address] FOLLOW UP 08/04/2011 Visit Plan: Check uric acid, Chem 7, HbA 1C, TSH, Free T4 Fwup pending above results 05/02/2011 Appointment: Radha Alan WPtel: [address] [place] [address] ACUTE ILLNESS 05/02/2011 Patient Education: Patient Medication Summary Completed 05/02/2011 Visit Plan: will do fasting labs: Sed ra te, Lipids, CBC, CMP, DARREN, RA factor. (Mag lab) Pt. denies injury but states pain has begun to progress. Trial of Flexeril. Discussed that he may use Ibuprofen as well. 12/13/2010 Appointment: Jyoti Guajardo WPtel: [address] [place] [address] ACUTE ILLNESS 12/13/2010 Patient Education: Patient Medication Summary Completed 12/13/2010 Referral: Chace TeagueAneesh WPtel: [address] [id number] [place] Referral Appointment Requested Referral: Ben Barbour WPtel: [address] [facility] [place] Referral Initiated Instructions Comment Date . Order req for fasting labs to Jean-Pierre sarkar - CBC, CMP, Lipids, PSA, TSH, Free T4, and then uric acid Patient to call us in the next few days with who he wants to see for first screening colonoscopy - did defer the prostate exam in office today since he will be having the c-scope soon He is to find out date of last tdap and will update if needed He is also going to call his insurance about shingles vaccine since he is almost 51 to see if coverage at 51y/o or 61y/o Refills given Follow up at least annually for wellness visit 03/01/2016 . Check fasting lab Low purine diet and check uric acid as well as DARREN, RA, ASO, B12 12/30/2014 . Increase allopurinol to 300mg po daily Change Daypro to Mobic 15mg po daily Add daily fish oil 1gm Add Vitamin D3 1000mg daily 08/16/2011 . Check uric acid, Chem 7, HbA1C, TSH, F ree T4 Fwup pending above results 05/02/2011 . will do fasting labs: Sed rate, Lipid s, CBC, CMP, DARREN, RA factor. ([facility] lab) Pt. denies injury but states pain has begun to progress. Trial of Flexeril. Discussed that he may use Ibuprofen as well. 12/13/2010 Medical Equipment No Medical Equipment data Health Concerns Section Health Concerns data not found Goals Section Goals data not found Interventions Section Interventions data not found Health Status Evaluations/Outcomes Section Health Status Evaluations/Outcomes data not found Advance Directives No Advance Directive data
--- OUTSIDE RECORDS SUMMARY | 2021-08-25 13:49 | XMS REPORT | CCD ---
Author Author Daniel Alan D.O. Organization [facility] Address [address] [place] [address] Phone Care Team Providers Care Iron Erector Name Role Phone Radha Alan D.O., PP Unavailable CCM Unavailable Summary Purpose Interface Exchange Insurance Providers Payer name Policy type / Coverage type Covered libertarian ID Effective Begin Date Effective End Date Blue Cross Blue Shield Blue Cross/Blue Shield [id number] 2021 Unknown Family History Family History data not found Social History Social History Element Codes Description Effective Dates Marital status Unknown 08/16/[address]: [id number] Has never smoked or chewed tobacco 08/16/2011 [...] Start Date Stop Date Status Fill Instructions allopurinol 100 mg tablet RxNorm: 035113 TAKE 2 TABLETS BY MOUT H EVERY DAY 07/15/2021 10/12/2021 Active metformin ER 500 mg tablet,extended release 24 hr RxNorm: 86 0975 Take 1 Tablet(s) Oral QD 07/15/2021 10/12/2021 Active meloxicam 15 mg tablet RxNorm: 944865 TAKE 1 TABLET BY MOUTH EV IVANIA DAY 07/06/2021 08/04/2021 Active meloxicam 15 mg tablet RxNorm: 608881 TAKE 1 TABLET BY MOUTH EV IVANIA DAY 06/02/2021 06/02/2021 Inactive atorvastatin 10 mg tablet RxNorm: 722524 TAKE 1/2 TABLE T BY MOUTH ON Monday AND Monday04/21/2021 07/19/2021 Inactive metformin ER 500 mg tablet,extended release 24 hr RxNorm: 86 0975 Take 1 Tablet(s) Oral QD 04/21/2021 04/21/2021 Inactive allopurinol 100 mg tablet RxNorm: 771820 TAKE 2 TABLETS BY MOUT H EVERY DAY 04/21/2021 04/21/2021 Inactive atorvastatin 10 mg tablet RxNorm: 288982 TAKE 1/2 TABLE T BY MOUTH ON Monday AND Monday03/29/2021 03/29/2021 Inactive meloxicam 15 mg tablet RxNorm: 252761 TAKE 1 TABLET BY MOUTH EV IVANIA DAY 03/22/2021 04/20/2021 Inactive meloxicam 15 mg tablet RxNorm: 748821 TAKE 1 TABLET BY MOUTH EV IVANIA DAY 02/22/2021 02/22/2021 Inactive allopurinol 100 mg tablet RxNorm: 927647 TAKE 2 TABLETS BY MOUT H EVERY DAY 01/21/2021 01/21/2021 Inactive meloxicam 15 mg tablet RxNorm: 052087 TAKE 1 TABLET BY MOUTH EV IVANIA DAY 01/21/2021 01/21/2021 Inactive metformin ER 500 mg tablet,extended release 24 hr RxNorm: 86 0975 Take 1 Tablet(s) Oral QD 01/21/2021 01/21/2021 Inactive metformin ER 500 mg tablet,extended release 24 hr RxNorm: 86 0975 1 Tablet(s) Oral QD 12/29/2020 12/29/2020 Inactive Due for fasting labs/follow up before 90 day supply allopurinol 100 mg tablet RxNorm: 567812 TAKE 2 TABLETS BY MOUT H EVERY DAY 11/08/2020 11/08/2020 Inactive atorvastatin 10 mg tablet RxNorm: 099679 TAKE 1/2 TABLE T BY MOUTH ON Monday AND Monday11/08/2020 11/08/2020 Inactive metformin ER 500 mg tablet,extended release 24 hr RxNorm: 86 0975 TAKE 1 TABLET BY MOUTH EVERY DAY 09/21/2020 12/28/2020 Inactive meloxicam 15 mg tablet RxNorm: 204904 TAKE 1 TABLET BY MOUTH EV IVANIA DAY 08/24/2020 08/24/2020 Inactive allopurinol 100 mg tablet RxNorm: 194696 TAKE 2 TABLETS BY MOUT H EVERY DAY 08/24/2020 11/07/2020 Inactive atorvastatin 10 mg tablet RxNorm: 346824 1/2 Tablet(s) Oral MWF 11/07/2020 Inactive metformin ER 500 mg tablet,extended release 24 hr RxNorm: 86 0975 TAKE 1 TABLET BY MOUTH EVERY DAY 06/23/2020 09/20/2020 Inactive allopurinol 100 mg tablet RxNorm: 845143 TAKE 2 TABLETS BY MOUT H EVERY DAY 04/24/2020 07/22/2020 Inactive meloxicam 15 mg tablet RxNorm: 646614 TAKE 1 TABLET BY MOUTH EV IVANIA DAY 04/24/2020 07/22/2020 Inactive metformin ER 500 mg tablet,extended release 24 hr RxNorm: 86 0975 TAKE 1 TABLET BY MOUTH EVERY DAY 03/23/2020 06/20/2020 Inactive allopurinol 100 mg tablet RxNorm: 828685 TAKE 2 TABLETS BY MOUT H EVERY DAY 02/16/2020 04/23/2020 Inactive allopurinol 100 mg tablet RxNorm: 440231 TAKE 2 TABLETS BY MOUT H EVERY DAY 01/16/2020 02/15/2020 Inactive metformin ER 500 mg tablet,extended release 24 hr RxNorm: 86 0975 TABLET(S) 1 TABLET(S) PO QD 12/16/2019 03/14/2020 Inactive Needs updated la bs before further refillsPatient requests 90 days supply allopurinol 100 mg tablet RxNorm: 763292 TAKE 2 TABLETS BY MOUT H EVERY DAY 12/16/2019 01/14/2020 Inactive meloxicam 15 mg tablet RxNorm: 666538 TAKE 1 TABLET BY MOUTH EV IVANIA DAY 12/16/2019 06/28/2020 Inactive meloxicam 15 mg tablet RxNorm: 331660 TAKE 1 TABLET BY MOUTH EV IVANIA DAY 11/04/2019 12/15/2019 Inactive allopurinol 100 mg tablet RxNorm: 156582 TAKE 2 TABLETS BY MOUT H EVERY DAY 09/09/2019 12/07/2019 Inactive metformin ER 500 mg tablet,extended release 24 hr RxNorm: 86 0975 TABLET(S) 1 TABLET(S) PO QD 09/09/2019 12/15/2019 Inactive Needs updated la bs before further refillsPatient requests 90 days supply meloxicam 15 mg tablet RxNorm: 683496 TAKE 1 TABLET BY MOUTH 08/01/2019 10/29/2019 Inactive allopurinol 100 mg tablet RxNorm: 018874 TAKE 2 TABLETS BY MOUT H EVERY DAY 08/01/2019 08/30/2019 Inactive meloxicam 15 mg tablet RxNorm: 519150 1 Tablet(s) PO QD 04/25/2019 Inactive allopurinol 100 mg tablet RxNorm: 085164 2 TABLET(S) PO QD 04/24/2007/22/2019 Inactive prednisone 20 mg tablet RxNorm: 394724 1 Tablet(s) PO B ID for 4 days then 1 po daily for 4 days 04/18/2019 08/18/2019 Inactive allopurinol 100 mg tablet RxNorm: 982227 2 TABLET(S) PO QD 03/28/2005/26/2019 Inactive Patient requests 90 days s upply metformin ER 500 mg tablet,extended release 24 hr RxNorm: 86 0975 TABLET(S) 1 TABLET(S) PO QD NEEDS UPDATED FASTING LABS 02/26/2019 09/08/2019 Inact vielka Needs updated labs before further refillsPatient requests 90 days supply allopurinol 100 mg tablet RxNorm: 823287 2 TABLET(S) PO QD 02/22/2003/27/2019 Inactive metformin [...] further refills allopurinol 100 mg tablet RxNorm: 483255 2 Tablet(s) PO QD 11/27/19 19 02/20/2019 Inactive metformin ER 500 mg tablet,extended release 24 hr RxNorm: 86 0975 1 TABLET(S) PO QD NEEDS UPDATED FASTING LABS 10/29/2018 11/25/2018 Inactive metformin ER 500 mg tablet,extended release 24 hr RxNorm: 86 0975 1 Tablet(s) PO QD Needs updated fasting labs 09/26/2018 10/25/2018 Inactive allopurinol 100 mg tablet RxNorm: 588814 2 TABLET(S) PO QD 08/22/19 19 11/19/2018 Inactive allopurinol 100 mg tablet RxNorm: 948433 2 TABLET(S) PO QD 05/23/20 18 08/20/2018 Inactive metformin ER 500 mg tablet,extended release 24 hr RxNorm: 86 0975 1 Tablet(s) PO QD 04/25/2018 07/23/2018 Inactive metformin ER 500 mg tablet,extended release 24 hr RxNorm: 86 0975 1 Tablet(s) PO QD 04/25/2018 04/24/2018 Inactive allopurinol 100 mg tablet RxNorm: 525202 2 Tablet(s) PO QD 04/20/20 18 05/19/2018 Inactive allopurinol 100 mg tablet RxNorm: 505659 2 Tablet(s) PO QD 04/02/20 18 04/16/2018 Inactive allopurinol 100 mg tablet RxNorm: 222845 2 Tablet(s) PO QD 03/08/20 18 2018 Inactive Mobic 15 mg tablet RxNorm: 472190 1 TABLET(S) PO QD 03/07/20182017 Inactive [SAVINGS FOR NON-COVERED DRUGS -- BIN:00 5824, PCN: ASPROD1, Group: XXXXX, ID# XXXXXXX, Questions: . THIS IS NOT INSURANCE.] allopurinol 100 mg tablet RxNorm: 230284 2 Tablet(s) PO QD 10/28/19 18 03/08/2018 Inactive allopurinol 100 mg tablet RxNorm: 793710 2 Tablet(s) PO QD 04/03/20 17 10/27/2017 Inactive Mobic 15 mg tablet RxNorm: 504617 1 Tablet(s) PO QD 03/01/20172017 Inactive [SAVINGS FOR NON-COVERED DRUGS -- BIN:00 3585, PCN: ASPROD1, Group: XXXXX, ID# [id number], Questions: . THIS IS NOT INSURANCE.] hydrochlorothiazide 12.5 mg capsule RxNorm: 325913 1 Capsule(s) PO QAM 09/28/2016 09/17/2017 Inactive allopurinol 100 mg tablet RxNorm: 906392 2 Tablet(s) PO QD 09/15/19 17 04/03/2017 Inactive allopurinol 100 mg tablet RxNorm: 324344 2 Tablet(s) PO QD 04/04/20 16 09/14/2016 Inactive allopurinol 100 mg tablet RxNorm: 877543 2 Tablet(s) PO QD 03/01/20 16 04/03/2016 Inactive Mobic 15 mg tablet RxNorm: 655086 1 Tablet(s) PO QD 03/01/20162016 Inactive [SAVINGS FOR NON-COVERED DRUGS -- BIN:00 3585, PCN: ASPROD1, Group: XXXXX, ID# XXXXXXX, Questions: . THIS IS NOT INSURANCE.] allopurinol 100 mg tablet RxNorm: 909146 2 Tablet(s) PO QD Needs routine appointment 02/17/2016 04/04/2016 Inactive allopurinol 100 mg tablet RxNorm: 667251 2 Tablet(s) PO QD Needs routine appointment 01/18/2016 02/17/2016 Inactive allopurinol 100 mg tablet RxNorm: 930379 2 Tablet(s) PO QD Needs routine appointment 11/16/2015 01/18/2016 Inactive Mobic 15 mg tablet RxNorm: 037359 1 TABLET(S) PO QD . 11/13/201502/11 Inactive [SAVINGS FOR NON-COVERED DRUGS -- BIN:00 3585, PCN: ASPROD1, Group: XXXXX, ID# [id number], Questions: . THIS IS NOT INSURANCE.] Mobic 15 mg tablet RxNorm: 900520 1 Tablet(s) PO QD . 08/17/201510/14 Inactive [SAVINGS FOR NON-COVERED DRUGS -- BIN:00 3585, PCN: ASPROD1, Group: XXXXX, ID# [id number], Questions: . THIS IS NOT INSURANCE.] allopurinol 300 mg tablet RxNorm: 471568 Tablet(s) 1 TA BLET(S) PO QD TAKE 1 BY MOUTH DAILY 05/04/2015 11/16/2015 Inactive Mobic 15 mg tablet RxNorm: 572990 1 Tablet(s) PO QD Ne eds seen for routine appointment . 01/26/2015 08/17/2015 Inactive [SAVINGS FOR NON -COVERED DRUGS -- BIN:130635, PCN: ASPROD1, Group: XXXXX, ID# [id number], Questions: . THIS IS NOT INSURANCE.] Mobic 15 mg tablet RxNorm: 906136 1 Tablet(s) PO QD Ne eds seen for routine appointment . 12/24/2014 01/26/2015 Inactive [SAVINGS FOR NON -COVERED DRUGS -- BIN:347242, PCN: ASPROD1, Group: XXXXX, ID# XXXXXXX, Questions: . THIS IS NOT INSURANCE.] Mobic 15 mg tablet RxNorm: 317910 1 Tablet(s) PO QD Ne eds seen for routine appointment . 11/21/2014 12/20/2014 Inactive allopurinol 300 mg tablet RxNorm: 436449 Tablet(s) 1 TA BLET(S) PO QD TAKE 1 BY MOUTH DAILY 10/28/2014 05/04/2015 Inactive Mobic 15 mg tablet RxNorm: 037024 1 TABLET(S) PO QD TA KE 1 TABLET BY MOUTH DAILY . 05/23/2014 08/20/2014 Inactive Mobic 15 mg tablet RxNorm: 624727 1 Tablet(s) PO QD TA KE 1 TABLET BY MOUTH DAILY . 05/22/2014 11/21/2014 Inactive allopurinol 300 mg tablet RxNorm: 872010 1 TABLET(S) PO QD TAKE 1 BY MOUTH DAILY 05/02/2014 10/28/2014 Inactive cyclobenzaprine 10 mg tablet RxNorm: 180146 1 Tablet(s) PO TID Take one half to one by mouth three times a day as needed for muscle pain 11/01/2013 Inactive allopurinol 300 mg tablet RxNorm: 001582 1 Tablet(s) PO QD Take 1 by mouth daily 11/01/2013 04/29/2014 Inactive Mobic 15 mg tablet RxNorm: 785472 1 Tablet(s) PO QD TA KE 1 TABLET BY MOUTH DAILY . 11/01/2013 04/29/2014 Inactive allopurinol 300 mg tablet RxNorm: 083437 1 Tablet(s) PO QD Needs appt--not seen since 201110/14/2013 10/31/2013 Inactive Mobic 15 mg tablet RxNorm: 271444 Tablet(s) PO TAKE 1 TABLET BY MOUTH DAILY Last refill until appt. is made to see 10/14/2013 10/31/2013 Inactive Mobic 15 mg tablet RxNorm: 040087 1 Tablet(s) PO QD Ne eds appt---not seen since 201109/10/2013 10/14/2013 Inactive allopurinol 300 mg tablet RxNorm: 161471 1 Tablet(s) PO QD Needs appt--not seen since 201109/10/2013 10/09/2013 Inactive Mobic 15 mg tablet RxNorm: 220321 1 Tablet(s) PO QD 03/04/20132013 Inactive allopurinol 300 mg tablet RxNorm: 594175 1 Tablet(s) PO QD 03/04/20 13 08/30/2013 Inactive allopurinol 300 mg tablet RxNorm: 234002 1 Tablet(s) PO QD 10/23/19 13 02/18/2013 Inactive allopurinol 300 mg tablet RxNorm: 426006 1 Tablet(s) PO QD 06/11/20 12 10/22/2012 Inactive Mobic 15 mg tablet RxNorm: 848148 1 Tablet(s) PO QD 05/30/20122012 Inactive Mobic 15 mg tablet RxNorm: 342261 1 Tablet(s) PO QD 05/30/20122012 Inactive allopurinol 300 mg tablet RxNorm: 414943 1 Tablet(s) PO QD 01/05/2005/03/2012 Inactive Mobic 15 mg tablet RxNorm: 444892 1 Tablet(s) PO QD 01/05/20122011 Inactive Mobic 15 mg Tab RxNorm: 052962 1 Tablet(s) PO QD 08/16/2011 01/05/2012 Inactive allopurinol 300 mg Tab RxNorm: 486792 1 Tablet(s) PO QD 08/16/2011 Inactive Daypro 600 mg Tab RxNorm: 733236 2 Tablet(s) PO QD 07/27/2011 012 Inactive allopurinol 100 mg Tab RxNorm: 917546 1 Tablet(s) PO QD 07/27/2011 Inactive Flexeril 10 mg Tab RxNorm: 726597 1 Tablet(s) PO TID 12/13/201012/19 Inactive aspirin 81 mg tablet RxNorm: 258740 1 Tablet(s) PO QD 02/13/201909/2018 Inactive meloxicam 15 mg tablet RxNorm: 983219 1 Tablet(s) PO QD 04/25/2019 Inactive Fish Oil 360 mg-1,200 mg capsule,delayed release RxNorm: 1 Capsule(s) PO QD 07/27/2021 07/26/2021 Inactive allopurinol 100 mg tablet RxNorm: 306496 2 Tablet(s) PO QD 11/16/19 16 11/15/2015 Inactive Medication Administered No Medication Administered data Immunizations No Immunization data Results No Results data Procedures Procedure Codes Date INFLUENZA ASSAY W/OPTIC CPT-4: 50864 09/15/2016 Vital Signs Date Vital 07/27/2021 Blood Pressure 1: 132/68 Code: 8480-6 BMI: 25.5 Code: 15083-0 Heart Rate 1: 100 bpm Height: 5'10" Code: 8302-2 Respiratory Rate: 17 bpm SpO2: 97% Temperature: 36.2 (C) / 97.1 (F) Weight: 178 lbs Code: 58442-4 03/08/2021 Blood Pressure 1: 126/76 Code: 8480-6 BMI: 24.7 Code: 69403-2 Heart Rate 1: 76 bpm Height: 5'10" Code: 8302-2 Respiratory Rate: 20 bpm SpO2: 98% Temperature: 36.6 (C) / 97.9 (F) Weight: 172 lbs Code: 70871-0 06/29/2020 Blood Pressure 1: 136/78 Code: 8480-6 Heart Rate 1: 80 bpm Respiratory Rate: 16 bpm SpO2: 97% Temperature: 36.7 (C) / 98.1 (F) We ight: 170 lbs Code: 47460-3 08/19/2019 Blood Pressure 1: 126/82 Code: 8480-6 BMI: 24.7 Code: 28680-5 Heart Rate 1: 68 bpm Height: 5'10" Code: 8302-2 Respiratory Rate: 16 bpm SpO2: 99% Temperature: 36.6 (C) / 97.9 (F) Weight: 172 lbs Code: 18780-9 04/18/2019 Blood Pressure 1: 124/78 Code: 8480-6 Heart Rate 1: 72 bpm Respiratory Rate: 18 bpm SpO2: 98% Temperature: 36.8 (C) / 98.2 (F) We ight: 175 lbs Code: 95416-3 02/13/2019 Blood Pressure 1: 122/70 Code: 8480-6 Heart Rate 1: 60 bpm Respiratory Rate: 20 bpm SpO2: 96% Temperature: 36.6 (C) / 97.8 (F) We ight: 178 lbs Code: 14441-4 04/23/2018 Blood Pressure 1: 116/78 Code: 8480-6 BMI: 25.3 Code: 83620-1 Heart Rate 1: 64 bpm Height: 5'10" Code: 8302-2 Respiratory Rate: 20 bpm SpO2: 98% Temperature: 36.9 (C) / 98.4 (F) Weight: 176 lbs Code: 79924-8 09/18/2017 Blood Pressure 1: 144/86 Code: 8480-6 BMI: 26.1 Code: 60532-7 Heart Rate 1: 92 bpm Height: 5'10" Code: 8302-2 Respiratory Rate: 20 bpm Temperat ure: 36.6 (C) / 97.8 (F) Weight: 182 lbs Code: 83108-4 09/28/2016 Blood Pressure 1: 136/86 Code: 8480-6 BMI: 25.1 Code: 46120-9 Heart Rate 1: 84 bpm Height: 5'10" Code: 8302-2 Respiratory Rate: 20 bpm SpO2: 97% Temperature: 36.9 (C) / 98.5 (F) Weight: 175 lbs Code: 94220-2 09/15/2016 Blood Pressure 1: 142/88 Code: 8480-6 BMI: 25.7 Code: 11865-1 Heart Rate 1: 104 bpm Height: 5'10" Code: 8302-2 Respiratory Rate: 20 bpm SpO2: 98% Temperature: 37.6 (C) / 99.7 (F) Weight: 179 lbs Code: 21113-9 03/01/2016 Blood Pressure 1: 118/78 Code: 8480-6 BMI: 25.4 Code: 30717-0 Heart Rate 1: 104 bpm Height: 5'10" Code: 8302-2 Respiratory Rate: 22 bpm SpO2: 98% Temperature: 36.1 (C) / 96.9 (F) Weight: 177 lbs Code: 50316-1 12/30/2014 Blood Pressure 1: 128/78 Code: 8480-6 BMI: 25.0 Code: 54255-6 Heart Rate 1: 84 bpm Height: 5'10" Code: 8302-2 Respiratory Rate: 20 bpm Temperat ure: 36.7 (C) / 98.0 (F) Weight: 174 lbs Code: 52940-9 11/01/2013 Blood Pressure 1: 122/78 Code: 8480-6 BMI: 25.5 Code: 38108-3 Heart Rate 1: 80 bpm Height: 5'10" Code: 8302-2 Respiratory Rate: 20 bpm Temperat ure: 36.8 (C) / 98.2 (F) Weight: 178 lbs Code: 72605-4 08/16/2011 Blood Pressure 1: 122/78 Code: 8480-6 BMI: 24.0 Code: 80388-8 Heart Rate 1: 76 bpm Height: 5'10" Code: 8302-2 Respiratory Rate: 20 bpm Temperat ure: 36.9 (C) / 98.4 (F) Weight: 167 lbs Code: 98084-7 05/02/2011 Blood Pressure 1: 128/72 Code: 8480-6 Heart Rate 1: 58 bpm Weight: 164 lbs Code: 14498-6 12/13/2010 Blood Pressure 1: 122/64 Code: 8480-6 Te mperature: 36.6 (C) / 97.8 (F) Weight: 165 lbs Code: 49528-0 Functional Status No Functional Status data Reason For Visit Reason For Visit Effective Dates Notes follow up 07/27/2021 patient had labs dale wn at [facility] this morning. no results in chart. [...] limb 05/02/2011 hx of pain in December, he pain has gotten worse. it is constant in both legs and now in the feet. Big toe feels like needles in it. Bothering him during sleep.Hx of gout in family. joint complaint 12/13/2010 hips and back pain Encounters Encounter Performer Location Codes Date (81328) OFFICE/OUTPATIENT VISIT EST Diagnosis: Mixed hyperlipidemia[ICD10: E78.2] Diagnosis: 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 inflammatory arthritis and tophaceous disease[ICD10: E79.0] Diagnosis: Hyperglycemia, unspecified[ICD10: R73.9] Diagnosis: Hypertension[ICD10: I10] Radha FITCH [facility] CPT-4: 32921 07/27/2021 ([id number]) PREV VISIT EST AGE 40-64 Diagnosis: Encounter for general adult medical examination without abnormal findings[ICD10: Z00.00] Diagnosis: Hyperglycemia, unspecified[ICD10: R73.9] Diagnosis: Gout, unspecified[ICD10: M10.9] Diagnosis: Mixed hyperlipidemia[ICD10: E78.2] Diagnosis: Right knee pain[ICD10: M25.561] Radha ALAN DO [facility] CPT-4: 94134 03/08/2021 ([id number]) OFFICE/OUTPATIENT VISIT EST Diagnosis: Hyperglycemia, unspecified[ICD10: R73.9] Diagnosis: Mixed hyperlipidemia[ICD10: E78.2] Diagnosis: Penis disorder[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] Radha ALAN DO [facility] CPT-4: 71071 06/29/2020 ([id number]) OFFICE/OUTPATIENT VISIT EST Diagnosis: Hyperglycemia, unspecified[ICD10: R73.9] Diagnosis: Mixed hyperlipidemia[ICD10: E78.2] Radha Alan [facility] CPT-4: 06117 12/26/2019 ([id number]) PREV VISIT EST AGE 40-64 Diagnosis: Encounter for general adult medical examination without abnormal findings[ICD10: Z00.00] Diagnosis: Gout, unspecified[ICD10: M10.9] Diagnosis: Hyperglycemia, unspecified[ICD10: R73.9] Radha ALAN [facility] CPT-4: 67993 08/19/2019 ([id number]) OFFICE/OUTPATIENT VISIT EST Diagnosis: Localized swelling, mass and lump, trunk[ICD10: R22.2] Radha ALAN [facility] CPT-4: 57020 04/18/2019 ([id number]) OFFICE/OUTPATIENT VISIT EST Diagnosis: 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 inflammatory arthritis and tophaceous disease[ICD10: E79.0] Diagnosis: Hyperglycemia, unspecified[ICD10: R73.9] Diagnosis: Family history of ischemic heart disease and other diseases of the circulatory system[ICD10: Z82.49] Radha Berger [facility] CPT-4: 34552 02/13/2019 ([id number]) OFFICE/OUTPATIENT VISIT EST Diagnosis: Gout, unspecified[ICD10: M10.9] Diagnosis: Encounter for therapeutic drug level monitoring[ICD10: Z51.81] Trinity ALAN [facility] CPT-4: 33952 04/23/2018 ([id number]) OFFICE/OUTPATIENT VISIT EST Diagnosis: Hemorrhage of anus and rectum[ICD10: K62.5] Radha ALAN DO [facility] CPT-4: 51007 09/18/2017 ([id number]) OFFICE/OUTPATIENT VISIT EST Diagnosis: Localized edema[ICD10: R60.0] Diagnosis: Gout, unspecified[ICD10: M10.9] Radha HerreraAneesh DAYANNA ALEJANDRO [facility] CPT-4: 42137 09/28/2016 ([id number]) OFFICE/OUTPATIENT VISIT EST Diagnosis: Fever, unspecified[ICD10: R50.9] Diagnosis: Myalgia[ICD10: M79.1] Diagnosis: Viral infection, unspecified[ICD10: B34.9] Thuy LOVELLLINE SharonAneesh DAYANNA ALEJANDRO [facility] CPT-4: 45543 09/15/2016 ([id number]) PREV VISIT EST AGE 40-64 Diagnosis: Encounter for general adult medical examination without abnormal findings[ICD10: Z00.00] Diagnosis: Gout, unspecified[ICD10: M10.9] Thuy LOVELLLINE SharonAneesh DAYANNA [email or web address] CPT-4: 34446 03/01/2016 ([id number]) PREV VISIT EST AGE 40-64 Diagnosis: ROUTINE MEDICAL EXAM[ICD9: V70.0] Diagnosis: Arthralgia[ICD9: 719.40] Diagnosis: Hyperuricemia[ICD9: 790.6] Radha Dayanna HerreraAneesh [email or web address] CPT-4: 73160 12/30/2014 ([id number]) PREV VISIT EST AGE 40-64 Diagnosis: ROUTINE MEDICAL EXAM[ICD9: V70.0] Diagnosis: Arthralgia[ICD9: 719.40] Diagnosis: Hyperuricemia[ICD9: 790.6] Lorna [place]O SharonAneesh [email or web address] CPT-4: 69063 11/01/2013 OFFICE/OUTPATIENT VISIT EST Diagnosis: ARTHRALGIA-MULTIPLE SITES[ICD9: 719.49] Diagnosis: Hyperuricemia[ICD9: 790.6] Diagnosis: GASTROENTERITIS[ICD9: 558.9] Radha Dayanna LOVELLLINE SharonAneesh DAYANNA [email or web address] CPT-4: 65031 08/16/2011 OFFICE/OUTPATIENT VISIT EST Diagnosis: JOINT PAIN-PELVIS[ICD9: 719.45] Diagnosis: Leg pain[ICD9: 729.5] Diagnosis: ARTHRALGIA-MULTIPLE SITES[ICD9: 719.49] Radha FLORESALEX [facility] CPT-4: 87591 05/02/2011 ([id number]) OFFICE/OUTPATIENT VISIT EST Radha GONZALEZ SAAD [facility] CPT-4: 38348 12/13/2010 Plan of Care Planned Activity Notes [...] ICD-9 : 790.6 ICD-10 : E79.0 07/27/2021 Visit Diagnosis Plan: Encounter for [facility] adult medical examination without abnormal findings Discussion: [...] 790.29 ICD-10 : R73.9 03/08/2021 Appointment: Radha Alan WPtel: [facility] [place] Annual Well Visit 03/08/2021 Appointment: Radha Alan WPtel: [facility] [place] RESCHEDULED 02/22/2021 Visit Diagnosis Plan: Mixed [...] : R73.9 06/29/2020 Appointment: Radha Alan WPtel: [address] [place], [place] [phone] [place] will bring new insurance to [facility] monday FOLLOW U P 06/29/2020 Care Plan: Referral Order SNOMED-CT : 30 [id number] Pending 06/29/2020 Visit Diagnosis Plan: Hyperglycemia, unspecified Discu ssion: Lab discussed Accuchecks daily Continue current meds Check CMP and HbA1C in 3mos then fwup ICD-9 : 790.29 ICD-10 : R73.9 12/26/2019 Visit Diagnosis Plan: Mixed hyperlipidemia Discussion: Mediterranean diet Combination of cardio and weight bearing exercise ICD-9 : 272.2 ICD-10 : E78.2 12/26/2019 Appointment: Radha Alan WPtel: [address] [place], [place] [phone] [place] TELEMEDICINE 12/26/2019 Visit Diagnosis Plan: Hyperglycemia, unspecified Discu ssion: Check HbA1C ICD-9 : 790.29 ICD-10 : R73.9 08/19/2019 Visit Diagnosis Plan: Gout, unspecified Discussion: Ch adina uric acid ICD-9 : 274.9 ICD-10 : M10.9 08/19/2019 Visit Diagnosis Plan: Encounter for gene ral adult medical examination without abnormal findings Discussion: Mediterranean diet Combinati on of cardio and weight bearing exercise Update labs ICD-9 : V70.9 ICD-10 : Z00.00 08/19/2019 Appointment: Radha Alan WPtel: [address] [place] [address] Annual Well Visit 08/19/2019 Visit Diagnosis Plan: Localized swelling, mass and lum p, trunk Discussion: Suspect vs lymph node Supportive care--prednisone and see if goes down Notify if rash, redness, fever, etc develop Consider US if persists ICD-9 : 786.6 ICD-10 : R22.2 04/18/2019 Appointment: Radha Alan WPtel: [address] [place] [address] ACUTE ILLNESS 04/18/2019 Patient Education: prednisone- [employer] Coupon [id number] [email or web address] Completed 04/18/2019 Visit Diagnosis Plan: Family history [...] : E79.0 02/13/2019 Appointment: Radha Alan WPtel: [address] [place], [place] [phone] [place] FOLLOW UP 02/13/2019 Appointment: Trinity Cochran [address] [place] [address] CANCELED 02/04/2019 Care Plan: COMPREHEN METABOLIC PANEL SWAP[place] : 40895-4 Pending 01/25/2019 Care Plan: COMPLETE CBC W/AUTO DIFF WBC LOINC : 48219-0 Pending 01/25/2019 Care Plan: A1C HPLC LOINC : 97415-7 Pending 01/25/2019 Care Plan: ASSAY OF BLOOD/URIC ACID Pendi ng 01/25/2019 Visit Diagnosis Plan: Encounter for therapeutic drug l evel monitoring Discussion: fasting blood work ordered to be completed at [facility] today. discussed wth patient to dc meloxicam and to use prn to reduce the risk of gi bleeds since taking baby asa. patient verbalized understanding. ICD-9 : V58.83 ICD-10 : Z51.81 04/23/2018 Visit Diagnosis Plan: Gout, unspecified Discussion: wi ll have updated blood work. order written out to be completed at [facility] lab today. has minimal gout attacks but can feel the "soreness" when he misses a dose. ICD-9 : 274.9 ICD-10 : M10.9 04/23/2018 Appointment: Trinity Cochran [address] [place], [place] [phone] [place] MEDICATION REVIEW 04/23/2018 Patient Education: Patient Medication Summary Completed 04/23/2018 Visit Diagnosis Plan: Hemorrhage of anus and rectum Di scussion: Referral to Dr. Meyers for colonoscopy Notify if worsening symptoms--right now has just been with morning BM--bright red, painless on stool and toilet paper ICD-9 : 569.3 ICD-10 : K62.5 09/18/2017 Appointment: Radha Alan WPtel: [address] [place], [place] [phone] [place] ACUTE ILLNESS 09/18/2017 Patient Education: Patient Medication Summary Completed 09/18/2017 Appointment: Radha Alan WPtel: [address] [address] [place], [place] [id number] [place] 3/2 lm`sl 3/3 lm `sl 3/6 canceled~sl CANCELED 10/17/2016 Visit Diagnosis Plan: Localized edema Discussion: Comp ression socks HCTZ low dose Diet: Low Sodium Follow Up: 3 weeks ICD-9 : 782.3 ICD-10 : R60.0 09/28/2016 Visit Diagnosis Plan: Gout, unspecified Discussion: Ch adina CMP, uric acid now ICD-9 : 274.9 ICD-10 : M10.9 09/28/2016 Appointment: Radha Alan WPtel: [address] [place] [address] 09/27 confirmed`sl ACUTE ILLNESS 09/28/2016 Patient Education: Patient Medication Summary Completed 09/28/2016 Visit Diagnosis Plan: Fever, unspecified Discussion: F marcio - negative Exam unremarkable Likely viral illness Supportive care reviewed Follow up PRN ICD-9 : 780.60 ICD-10 : R50.9 09/15/2016 Appointment: Thuy Lauren [address] [place] [address] ACUTE ILLNESS 09/15/2016 Patient Education: Patient Medication [...] for wellness visit 03/01/2016 Appointment: Thuy Lauren [address] [place] [address] Annual Well Visit 03/01/2016 Patient Education: Patient Medication Summary Completed 03/01/2016 Visit Plan: Check fasting lab Low purine diet and check uric acid as well as DARREN, RA, ASO, B12 12/30/2014 Appointment: Radha Alan WPtel: [address] [place] [address] left vm 12/29... left vm 12/30 Annual Well Visit 0 12/30/2014 Patient Education: Patient Medication Summary Completed 12/30/2014 Appointment: Lorna Choudhary WPtel: [address] [place] [address] [place] FOLLOW UP 11/01/2013 Patient Education: Patient Medication Summary Completed 11/01/2013 Visit Plan: Increase allopurinol to 300m g po daily Change Daypro to Mobic 15mg po daily Add daily fish oil 1gm Add Vitamin D3 1000mg daily 08/16/2011 Appointment: Radha Alan WPtel: [address] [place] [address] [place] FOLLOW UP 08/16/2011 Patient Education: Patient Medication Summary Completed 08/16/2011 Appointment: Radha Alan WPtel: [address] [place] [address] [place] FOLLOW UP 08/09/2011 Appointment: Radha Alan WPtel: [address] [place] [address] FOLLOW UP 08/04/2011 Visit Plan: Check uric acid, Chem 7, HbA 1C, TSH, Free T4 Fwup pending above results 05/02/2011 Appointment: Radha Alan WPtel: [address] [place] [address] ACUTE ILLNESS 05/02/2011 Patient Education: Patient Medication Summary Completed 05/02/2011 Visit Plan: will do fasting labs: Sed ra te, Lipids, CBC, CMP, DARREN, RA factor. ([facility] lab) Pt. denies injury but states pain has begun to progress. Trial of Flexeril. Discussed that he may use Ibuprofen as well. 12/13/2010 Appointment: Jyoti Guajardo WPtel: [address] [place] [address] ACUTE ILLNESS 12/13/2010 Patient Education: Patient Medication Summary Completed 12/13/2010 Referral: Chace Teague WPtel: [facility] [place] [address] [place] Referral Appointment Requested Referral: Ben Barbour WPtel: [address] [id number] [place] Referral Initiated Instructions Comment Date . [...] Lipid s, CBC, CMP, DARREN, RA factor. ([facility] [place] lab) Pt. denies injury but states pain [...]
--- OUTSIDE RECORDS SUMMARY | 2021-08-25 13:49 | XMS REPORT | CCD ---
Author Author Daniel Alan D.O. 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 Name Role Phone Radha Alan D.O., PP Unavailable CCM Unavailable Summary Purpose Interface Exchange Insurance Providers Payer name Policy type / Coverage type Covered green party ID Effective Begin Date Effective End Date Blue Cross Blue Shield Blue Cross/Blue Shield [id number] 2021 Unknown Family History Family History data not found Social History Social History Element Codes Description Effective Dates Marital status Unknown 08/16/[address]: [id number] Has never smoked or chewed tobacco 08/16/2011 [...] Fill Instructions allopurinol 100 mg tablet RxNorm: 841621 TAKE 2 TABLETS BY MOUT H EVERY DAY 07/15/2021 10/12/2021 Active metformin ER 500 mg tablet,extended release 24 hr RxNorm: 86 0975 Take 1 Tablet(s) Oral QD 07/15/2021 10/12/2021 Active meloxicam 15 mg tablet RxNorm: 714359 TAKE 1 TABLET BY MOUTH EV IVANIA DAY 07/06/2021 08/04/2021 Active meloxicam 15 mg tablet RxNorm: 583421 TAKE 1 TABLET BY MOUTH EV IVANIA DAY 06/02/2021 06/02/2021 Inactive atorvastatin 10 mg tablet RxNorm: 229342 TAKE 1/2 TABLE T BY MOUTH ON Monday AND Monday04/21/2021 07/19/2021 Inactive metformin ER 500 mg tablet,extended release 24 hr RxNorm: 86 0975 Take 1 Tablet(s) Oral QD 04/21/2021 04/21/2021 Inactive allopurinol 100 mg tablet RxNorm: 027844 TAKE 2 TABLETS BY MOUT H EVERY DAY 04/21/2021 04/21/2021 Inactive atorvastatin 10 mg tablet RxNorm: 223070 TAKE 1/2 TABLE T BY MOUTH ON Monday AND Monday03/29/2021 03/29/2021 Inactive meloxicam 15 mg tablet RxNorm: 584116 TAKE 1 TABLET BY MOUTH EV IVANIA DAY 03/22/2021 04/20/2021 Inactive meloxicam 15 mg tablet RxNorm: 788022 TAKE 1 TABLET BY MOUTH EV IVANIA DAY 02/22/2021 02/22/2021 Inactive allopurinol 100 mg tablet RxNorm: 905753 TAKE 2 TABLETS BY MOUT H EVERY DAY 01/21/2021 01/21/2021 Inactive meloxicam 15 mg tablet RxNorm: 237029 TAKE 1 TABLET BY MOUTH EV IVANIA DAY 01/21/2021 01/21/2021 Inactive metformin ER 500 mg tablet,extended release 24 hr RxNorm: 86 0975 Take 1 Tablet(s) Oral QD 01/21/2021 01/21/2021 Inactive metformin ER 500 mg tablet,extended release 24 hr RxNorm: 86 0975 1 Tablet(s) Oral QD 12/29/2020 12/29/2020 Inactive Due for fasting labs/follow up before 90 day supply allopurinol 100 mg tablet RxNorm: 069310 TAKE 2 TABLETS BY MOUT H EVERY DAY 11/08/2020 11/08/2020 Inactive atorvastatin 10 mg tablet RxNorm: 885227 TAKE 1/2 TABLE T BY MOUTH ON Monday AND Monday11/08/2020 11/08/2020 Inactive metformin ER 500 mg tablet,extended release 24 hr RxNorm: 86 0975 TAKE 1 TABLET BY MOUTH EVERY DAY 09/21/2020 12/28/2020 Inactive meloxicam 15 mg tablet RxNorm: 940261 TAKE 1 TABLET BY MOUTH EV IVANIA DAY 08/24/2020 08/24/2020 Inactive allopurinol 100 mg tablet RxNorm: 593868 TAKE 2 TABLETS BY MOUT H EVERY DAY 08/24/2020 11/07/2020 Inactive atorvastatin 10 mg tablet RxNorm: 329349 1/2 Tablet(s) Oral MWF 11/07/2020 Inactive metformin ER 500 mg tablet,extended release 24 hr RxNorm: 86 0975 TAKE 1 TABLET BY MOUTH EVERY DAY 06/23/2020 09/20/2020 Inactive allopurinol 100 mg tablet RxNorm: 713575 TAKE 2 TABLETS BY MOUT H EVERY DAY 04/24/2020 07/22/2020 Inactive meloxicam 15 mg tablet RxNorm: 726639 TAKE 1 TABLET BY MOUTH EV IVANIA DAY 04/24/2020 07/22/2020 Inactive metformin ER 500 mg tablet,extended release 24 hr RxNorm: 86 0975 TAKE 1 TABLET BY MOUTH EVERY DAY 03/23/2020 06/20/2020 Inactive allopurinol 100 mg tablet RxNorm: 436153 TAKE 2 TABLETS BY MOUT H EVERY DAY 02/16/2020 04/23/2020 Inactive allopurinol 100 mg tablet RxNorm: 574959 TAKE 2 TABLETS BY MOUT H EVERY DAY 01/16/2020 02/15/2020 Inactive metformin ER 500 mg tablet,extended release 24 hr RxNorm: 86 0975 TABLET(S) 1 TABLET(S) PO QD 12/16/2019 03/14/2020 Inactive Needs updated la bs before further refillsPatient requests 90 days supply allopurinol 100 mg tablet RxNorm: 075850 TAKE 2 TABLETS BY MOUT H EVERY DAY 12/16/2019 01/14/2020 Inactive meloxicam 15 mg tablet RxNorm: 236981 TAKE 1 TABLET BY MOUTH EV IVANIA DAY 12/16/2019 06/28/2020 Inactive meloxicam 15 mg tablet RxNorm: 488649 TAKE 1 TABLET BY MOUTH EV IVANIA DAY 11/04/2019 12/15/2019 Inactive allopurinol 100 mg tablet RxNorm: 375795 TAKE 2 TABLETS BY MOUT H EVERY DAY 09/09/2019 12/07/2019 Inactive metformin ER 500 mg tablet,extended release 24 hr RxNorm: 86 0975 TABLET(S) 1 TABLET(S) PO QD 09/09/2019 12/15/2019 Inactive Needs updated la bs before further refillsPatient requests 90 days supply meloxicam 15 mg tablet RxNorm: 828122 TAKE 1 TABLET BY MOUTH 08/01/2019 10/29/2019 Inactive allopurinol 100 mg tablet RxNorm: 814025 TAKE 2 TABLETS BY MOUT H EVERY DAY 08/01/2019 08/30/2019 Inactive meloxicam 15 mg tablet RxNorm: 999840 1 Tablet(s) PO QD 04/25/2019 Inactive allopurinol 100 mg tablet RxNorm: 392470 2 TABLET(S) PO QD 04/24/2007/22/2019 Inactive prednisone 20 mg tablet RxNorm: 816304 1 Tablet(s) PO B ID for 4 days then 1 po daily for 4 days 04/18/2019 08/18/2019 Inactive allopurinol 100 mg tablet RxNorm: 621612 2 TABLET(S) PO QD 03/28/2005/26/2019 Inactive Patient requests 90 days s upply metformin ER 500 mg tablet,extended release 24 hr RxNorm: 86 0975 TABLET(S) 1 TABLET(S) PO QD NEEDS UPDATED FASTING LABS 02/26/2019 09/08/2019 Inact vielka Needs updated labs before further refillsPatient requests 90 days supply allopurinol 100 mg tablet RxNorm: 970482 2 TABLET(S) PO QD 02/22/2003/27/2019 Inactive metformin [...] further refills allopurinol 100 mg tablet RxNorm: 004898 2 Tablet(s) PO QD 11/27/19 19 02/20/2019 Inactive metformin ER 500 mg tablet,extended release 24 hr RxNorm: 86 0975 1 TABLET(S) PO QD NEEDS UPDATED FASTING LABS 10/29/2018 11/25/2018 Inactive metformin ER 500 mg tablet,extended release 24 hr RxNorm: 86 0975 1 Tablet(s) PO QD Needs updated fasting labs 09/26/2018 10/25/2018 Inactive allopurinol 100 mg tablet RxNorm: 768730 2 TABLET(S) PO QD 08/22/19 19 11/19/2018 Inactive allopurinol 100 mg tablet RxNorm: 912092 2 TABLET(S) PO QD 05/23/20 18 08/20/2018 Inactive metformin ER 500 mg tablet,extended release 24 hr RxNorm: 86 0975 1 Tablet(s) PO QD 04/25/2018 07/23/2018 Inactive metformin ER 500 mg tablet,extended release 24 hr RxNorm: 86 0975 1 Tablet(s) PO QD 04/25/2018 04/24/2018 Inactive allopurinol 100 mg tablet RxNorm: 218993 2 Tablet(s) PO QD 04/20/20 18 05/19/2018 Inactive allopurinol 100 mg tablet RxNorm: 744594 2 Tablet(s) PO QD 04/02/20 18 04/16/2018 Inactive allopurinol 100 mg tablet RxNorm: 080753 2 Tablet(s) PO QD 03/08/20 18 2018 Inactive Mobic 15 mg tablet RxNorm: 277452 1 TABLET(S) PO QD 03/07/20182017 Inactive [SAVINGS FOR NON-COVERED DRUGS -- BIN:00 7464, PCN: ASPROD1, Group: XXXXX, ID# [id number], Questions: . THIS IS NOT INSURANCE.] allopurinol 100 mg tablet RxNorm: 424039 2 Tablet(s) PO QD 10/28/19 18 03/08/2018 Inactive allopurinol 100 mg tablet RxNorm: 926678 2 Tablet(s) PO QD 04/03/20 17 10/27/2017 Inactive Mobic 15 mg tablet RxNorm: 291950 1 Tablet(s) PO QD 03/01/20172017 Inactive [SAVINGS FOR NON-COVERED DRUGS -- BIN:00 3585, PCN: ASPROD1, Group: XXXXX, ID# [id number], Questions: . THIS IS NOT INSURANCE.] hydrochlorothiazide 12.5 mg capsule RxNorm: 817796 1 Capsule(s) PO QAM 09/28/2016 09/17/2017 Inactive allopurinol 100 mg tablet RxNorm: 092598 2 Tablet(s) PO QD 09/15/19 17 04/03/2017 Inactive allopurinol 100 mg tablet RxNorm: 146367 2 Tablet(s) PO QD 04/04/20 16 09/14/2016 Inactive allopurinol 100 mg tablet RxNorm: 652348 2 Tablet(s) PO QD 03/01/20 16 04/03/2016 Inactive Mobic 15 mg tablet RxNorm: 408264 1 Tablet(s) PO QD 03/01/20162016 Inactive [SAVINGS FOR NON-COVERED DRUGS -- BIN:00 3585, PCN: ASPROD1, Group: XXXXX, ID# [id number], Questions: . THIS IS NOT INSURANCE.] allopurinol 100 mg tablet RxNorm: 983356 2 Tablet(s) PO QD Needs routine appointment 02/17/2016 04/04/2016 Inactive allopurinol 100 mg tablet RxNorm: 962318 2 Tablet(s) PO QD Needs routine appointment 01/18/2016 02/17/2016 Inactive allopurinol 100 mg tablet RxNorm: 040693 2 Tablet(s) PO QD Needs routine appointment 11/16/2015 01/18/2016 Inactive Mobic 15 mg tablet RxNorm: 669065 1 TABLET(S) PO QD . 11/13/201502/11 Inactive [SAVINGS FOR NON-COVERED DRUGS -- BIN:00 3585, PCN: ASPROD1, Group: XXXXX, ID# [id number], Questions: . THIS IS NOT INSURANCE.] Mobic 15 mg tablet RxNorm: 326813 1 Tablet(s) PO QD . 08/17/201510/14 Inactive [SAVINGS FOR NON-COVERED DRUGS -- BIN:00 3585, PCN: ASPROD1, Group: XXXXX, ID# [id number], Questions: . THIS IS NOT INSURANCE.] allopurinol 300 mg tablet RxNorm: 872965 Tablet(s) 1 TA BLET(S) PO QD TAKE 1 BY MOUTH DAILY 05/04/2015 11/16/2015 Inactive Mobic 15 mg tablet RxNorm: 329290 1 Tablet(s) PO QD Ne eds seen for routine appointment . 01/26/2015 08/17/2015 Inactive [SAVINGS FOR NON -COVERED DRUGS -- BIN:403719, PCN: ASPROD1, Group: XXXXX, ID# [id number], Questions: . THIS IS NOT INSURANCE.] Mobic 15 mg tablet RxNorm: 580447 1 Tablet(s) PO QD Ne eds seen for routine appointment . 12/24/2014 01/26/2015 Inactive [SAVINGS FOR NON -COVERED DRUGS -- BIN:812559, PCN: ASPROD1, Group: XXXXX, ID# [id number], Questions: . THIS IS NOT INSURANCE.] Mobic 15 mg tablet RxNorm: 101396 1 Tablet(s) PO QD Ne eds seen for routine appointment . 11/21/2014 12/20/2014 Inactive allopurinol 300 mg tablet RxNorm: 136264 Tablet(s) 1 TA BLET(S) PO QD TAKE 1 BY MOUTH DAILY 10/28/2014 05/04/2015 Inactive Mobic 15 mg tablet RxNorm: 299919 1 TABLET(S) PO QD TA KE 1 TABLET BY MOUTH DAILY . 05/23/2014 08/20/2014 Inactive Mobic 15 mg tablet RxNorm: 866975 1 Tablet(s) PO QD TA KE 1 TABLET BY MOUTH DAILY . 05/22/2014 11/21/2014 Inactive allopurinol 300 mg tablet RxNorm: 226318 1 TABLET(S) PO QD TAKE 1 BY MOUTH DAILY 05/02/2014 10/28/2014 Inactive cyclobenzaprine 10 mg tablet RxNorm: 598841 1 Tablet(s) PO TID Take one half to one by mouth three times a day as needed for muscle pain 11/01/2013 Inactive allopurinol 300 mg tablet RxNorm: 207556 1 Tablet(s) PO QD Take 1 by mouth daily 11/01/2013 04/29/2014 Inactive Mobic 15 mg tablet RxNorm: 566194 1 Tablet(s) PO QD TA KE 1 TABLET BY MOUTH DAILY . 11/01/2013 04/29/2014 Inactive allopurinol 300 mg tablet RxNorm: 459193 1 Tablet(s) PO QD Needs appt--not seen since 201110/14/2013 10/31/2013 Inactive Mobic 15 mg tablet RxNorm: 282921 Tablet(s) PO TAKE 1 TABLET BY MOUTH DAILY Last refill until appt. is made to see 10/14/2013 10/31/2013 Inactive Mobic 15 mg tablet RxNorm: 317131 1 Tablet(s) PO QD Ne eds appt---not seen since 201109/10/2013 10/14/2013 Inactive allopurinol 300 mg tablet RxNorm: 411535 1 Tablet(s) PO QD Needs appt--not seen since 201109/10/2013 10/09/2013 Inactive Mobic 15 mg tablet RxNorm: 890705 1 Tablet(s) PO QD 03/04/20132013 Inactive allopurinol 300 mg tablet RxNorm: 726191 1 Tablet(s) PO QD 03/04/20 13 08/30/2013 Inactive allopurinol 300 mg tablet RxNorm: 905075 1 Tablet(s) PO QD 10/23/19 13 02/18/2013 Inactive allopurinol 300 mg tablet RxNorm: 551877 1 Tablet(s) PO QD 06/11/20 12 10/22/2012 Inactive Mobic 15 mg tablet RxNorm: 783305 1 Tablet(s) PO QD 05/30/20122012 Inactive Mobic 15 mg tablet RxNorm: 668023 1 Tablet(s) PO QD 05/30/20122012 Inactive allopurinol 300 mg tablet RxNorm: 892447 1 Tablet(s) PO QD 01/05/2005/03/2012 Inactive Mobic 15 mg tablet RxNorm: 124065 1 Tablet(s) PO QD 01/05/20122011 Inactive Mobic 15 mg Tab RxNorm: 818197 1 Tablet(s) PO QD 08/16/2011 01/05/2012 Inactive allopurinol 300 mg Tab RxNorm: 966604 1 Tablet(s) PO QD 08/16/2011 Inactive Daypro 600 mg Tab RxNorm: 590127 2 Tablet(s) PO QD 07/27/2011 012 Inactive allopurinol 100 mg Tab RxNorm: 507765 1 Tablet(s) PO QD 07/27/2011 Inactive Flexeril 10 mg Tab RxNorm: 797471 1 Tablet(s) PO TID 12/13/201012/19 Inactive aspirin 81 mg tablet RxNorm: 214945 1 Tablet(s) PO QD 02/13/201909/2018 Inactive meloxicam 15 mg tablet RxNorm: 687126 1 Tablet(s) PO QD 04/25/2019 Inactive Fish Oil 360 mg-1,200 mg capsule,delayed release RxNorm: 1 Capsule(s) PO QD 07/27/2021 07/26/2021 Inactive allopurinol 100 mg tablet RxNorm: 299062 2 Tablet(s) PO QD 11/16/19 16 11/15/2015 Inactive Medication Administered No Medication Administered data Immunizations No Immunization data Results No Results data Procedures Procedure Codes Date INFLUENZA ASSAY W/OPTIC CPT-4: 03551 09/15/2016 Vital Signs Date Vital 07/27/2021 Blood Pressure 1: 132/68 Code: 8480-6 BMI: 25.5 Code: 50387-1 Heart Rate 1: 100 bpm Height: 5'10" Code: 8302-2 Respiratory Rate: 17 bpm SpO2: 97% Temperature: 36.2 (C) / 97.1 (F) Weight: 178 lbs Code: 35858-4 03/08/2021 Blood Pressure 1: 126/76 Code: 8480-6 BMI: 24.7 Code: 30672-3 Heart Rate 1: 76 bpm Height: 5'10" Code: 8302-2 Respiratory Rate: 20 bpm SpO2: 98% Temperature: 36.6 (C) / 97.9 (F) Weight: 172 lbs Code: 34582-0 06/29/2020 Blood Pressure 1: 136/78 Code: 8480-6 Heart Rate 1: 80 bpm Respiratory Rate: 16 bpm SpO2: 97% Temperature: 36.7 (C) / 98.1 (F) We ight: 170 lbs Code: 16163-3 08/19/2019 Blood Pressure 1: 126/82 Code: 8480-6 BMI: 24.7 Code: 99049-0 Heart Rate 1: 68 bpm Height: 5'10" Code: 8302-2 Respiratory Rate: 16 bpm SpO2: 99% Temperature: 36.6 (C) / 97.9 (F) Weight: 172 lbs Code: 87784-7 04/18/2019 Blood Pressure 1: 124/78 Code: 8480-6 Heart Rate 1: 72 bpm Respiratory Rate: 18 bpm SpO2: 98% Temperature: 36.8 (C) / 98.2 (F) We ight: 175 lbs Code: 81771-9 02/13/2019 Blood Pressure 1: 122/70 Code: 8480-6 Heart Rate 1: 60 bpm Respiratory Rate: 20 bpm SpO2: 96% Temperature: 36.6 (C) / 97.8 (F) We ight: 178 lbs Code: 36921-7 04/23/2018 Blood Pressure 1: 116/78 Code: 8480-6 BMI: 25.3 Code: 18643-5 Heart Rate 1: 64 bpm Height: 5'10" Code: 8302-2 Respiratory Rate: 20 bpm SpO2: 98% Temperature: 36.9 (C) / 98.4 (F) Weight: 176 lbs Code: 12562-6 09/18/2017 Blood Pressure 1: 144/86 Code: 8480-6 BMI: 26.1 Code: 44166-0 Heart Rate 1: 92 bpm Height: 5'10" Code: 8302-2 Respiratory Rate: 20 bpm Temperat ure: 36.6 (C) / 97.8 (F) Weight: 182 lbs Code: 03584-9 09/28/2016 Blood Pressure 1: 136/86 Code: 8480-6 BMI: 25.1 Code: 70964-7 Heart Rate 1: 84 bpm Height: 5'10" Code: 8302-2 Respiratory Rate: 20 bpm SpO2: 97% Temperature: 36.9 (C) / 98.5 (F) Weight: 175 lbs Code: 75012-3 09/15/2016 Blood Pressure 1: 142/88 Code: 8480-6 BMI: 25.7 Code: 31703-4 Heart Rate 1: 104 bpm Height: 5'10" Code: 8302-2 Respiratory Rate: 20 bpm SpO2: 98% Temperature: 37.6 (C) / 99.7 (F) Weight: 179 lbs Code: 58194-7 03/01/2016 Blood Pressure 1: 118/78 Code: 8480-6 BMI: 25.4 Code: 13400-0 Heart Rate 1: 104 bpm Height: 5'10" Code: 8302-2 Respiratory Rate: 22 bpm SpO2: 98% Temperature: 36.1 (C) / 96.9 (F) Weight: 177 lbs Code: 89285-5 12/30/2014 Blood Pressure 1: 128/78 Code: 8480-6 BMI: 25.0 Code: 30135-9 Heart Rate 1: 84 bpm Height: 5'10" Code: 8302-2 Respiratory Rate: 20 bpm Temperat ure: 36.7 (C) / 98.0 (F) Weight: 174 lbs Code: 43885-7 11/01/2013 Blood Pressure 1: 122/78 Code: 8480-6 BMI: 25.5 Code: 69446-4 Heart Rate 1: 80 bpm Height: 5'10" Code: 8302-2 Respiratory Rate: 20 bpm Temperat ure: 36.8 (C) / 98.2 (F) Weight: 178 lbs Code: 73786-7 08/16/2011 Blood Pressure 1: 122/78 Code: 8480-6 BMI: 24.0 Code: 44423-1 Heart Rate 1: 76 bpm Height: 5'10" Code: 8302-2 Respiratory Rate: 20 bpm Temperat ure: 36.9 (C) / 98.4 (F) Weight: 167 lbs Code: 58578-5 05/02/2011 Blood Pressure 1: 128/72 Code: 8480-6 Heart Rate 1: 58 bpm Weight: 164 lbs Code: 88818-5 12/13/2010 Blood Pressure 1: 122/64 Code: 8480-6 Te mperature: 36.6 (C) / 97.8 (F) Weight: 165 lbs Code: 74050-1 Functional Status No Functional Status data Reason [...] pain Encounters Encounter Performer Location Codes Date (78420) OFFICE/OUTPATIENT VISIT EST Diagnosis: Mixed hyperlipidemia[ICD10: E78.2] Diagnosis: 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 inflammatory arthritis and tophaceous disease[ICD10: E79.0] Diagnosis: Hyperglycemia, unspecified[ICD10: R73.9] Diagnosis: Hypertension[ICD10: I10] Radha FITCH [facility] CPT-4: 48360 07/27/2021 ([id number]) PREV VISIT EST AGE 40-64 Diagnosis: Encounter for general adult medical examination without abnormal findings[ICD10: Z00.00] Diagnosis: Hyperglycemia, unspecified[ICD10: R73.9] Diagnosis: Gout, unspecified[ICD10: M10.9] Diagnosis: Mixed hyperlipidemia[ICD10: E78.2] Diagnosis: Right knee pain[ICD10: M25.561] Radha ALAN DO [facility] CPT-4: 90508 03/08/2021 ([id number]) OFFICE/OUTPATIENT VISIT EST Diagnosis: Hyperglycemia, unspecified[ICD10: R73.9] Diagnosis: Mixed hyperlipidemia[ICD10: E78.2] Diagnosis: Penis disorder[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] Radha ALAN DO [facility] CPT-4: 72083 06/29/2020 ([id number]) OFFICE/OUTPATIENT VISIT EST Diagnosis: Hyperglycemia, unspecified[ICD10: R73.9] Diagnosis: Mixed hyperlipidemia[ICD10: E78.2] Radha Alan [facility] CPT-4: 53431 12/26/2019 ([id number]) PREV VISIT EST AGE 40-64 Diagnosis: Encounter for general adult medical examination without abnormal findings[ICD10: Z00.00] Diagnosis: Gout, unspecified[ICD10: M10.9] Diagnosis: Hyperglycemia, unspecified[ICD10: R73.9] Radha ALAN [facility] CPT-4: 96245 08/19/2019 ([id number]) OFFICE/OUTPATIENT VISIT EST Diagnosis: Localized swelling, mass and lump, trunk[ICD10: R22.2] Radha ALAN [facility] CPT-4: 53545 04/18/2019 ([id number]) OFFICE/OUTPATIENT VISIT EST Diagnosis: 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 inflammatory arthritis and tophaceous disease[ICD10: E79.0] Diagnosis: Hyperglycemia, unspecified[ICD10: R73.9] Diagnosis: Family history of ischemic heart disease and other diseases of the circulatory system[ICD10: Z82.49] Radha Berger [facility] CPT-4: 29485 02/13/2019 ([id number]) OFFICE/OUTPATIENT VISIT EST Diagnosis: Gout, unspecified[ICD10: M10.9] Diagnosis: Encounter for therapeutic drug level monitoring[ICD10: Z51.81] Trinity ALAN [facility] CPT-4: 65396 04/23/2018 ([id number]) OFFICE/OUTPATIENT VISIT EST Diagnosis: Hemorrhage of anus and rectum[ICD10: K62.5] Radha ALAN DO [facility] CPT-4: 24823 09/18/2017 ([id number]) OFFICE/OUTPATIENT VISIT EST Diagnosis: Localized edema[ICD10: R60.0] Diagnosis: Gout, unspecified[ICD10: M10.9] Radha HerreraAneesh DAYANNA ALEJANDRO [facility] CPT-4: 42260 09/28/2016 ([id number]) OFFICE/OUTPATIENT VISIT EST Diagnosis: Fever, unspecified[ICD10: R50.9] Diagnosis: Myalgia[ICD10: M79.1] Diagnosis: Viral infection, unspecified[ICD10: B34.9] Thuy LOVELLLINE SharonAneesh DAYANNA ALEJANDRO [facility] CPT-4: 40914 09/15/2016 ([id number]) PREV VISIT EST AGE 40-64 Diagnosis: Encounter for general adult medical examination without abnormal findings[ICD10: Z00.00] Diagnosis: Gout, unspecified[ICD10: M10.9] Thuy LOVELLLINE SharonAneesh DAYANNA [employer] CPT-4: 32952 03/01/2016 ([id number]) PREV VISIT EST AGE 40-64 Diagnosis: ROUTINE MEDICAL EXAM[ICD9: V70.0] Diagnosis: Arthralgia[ICD9: 719.40] Diagnosis: Hyperuricemia[ICD9: 790.6] Radha Dayanna HerreraAneesh [facility] CPT-4: 48726 12/30/2014 ([id number]) PREV VISIT EST AGE 40-64 Diagnosis: ROUTINE MEDICAL EXAM[ICD9: V70.0] Diagnosis: Arthralgia[ICD9: 719.40] Diagnosis: Hyperuricemia[ICD9: 790.6] Lorna [place]O SharonAneesh [facility] CPT-4: 56460 11/01/2013 OFFICE/OUTPATIENT VISIT EST Diagnosis: ARTHRALGIA-MULTIPLE SITES[ICD9: 719.49] Diagnosis: Hyperuricemia[ICD9: 790.6] Diagnosis: GASTROENTERITIS[ICD9: 558.9] Radha Dayanna LOVELLLINE SharonAneesh DAYANNA [employer] CPT-4: 46746 08/16/2011 OFFICE/OUTPATIENT VISIT EST Diagnosis: JOINT PAIN-PELVIS[ICD9: 719.45] Diagnosis: Leg pain[ICD9: 729.5] Diagnosis: ARTHRALGIA-MULTIPLE SITES[ICD9: 719.49] Radha FLORESALEX Jaimes [employer] CPT-4: 24530 05/02/2011 ([id number]) OFFICE/OUTPATIENT VISIT EST Radha GONZALEZ SAAD [facility] [employer] CPT-4: 82576 12/13/2010 Plan of Care Planned Activity Notes [...] E79.0 07/27/2021 Visit Diagnosis Plan: Encounter for [facility] adult medical examination without abnormal findings [...] : R73.9 03/08/2021 Appointment: Radha Alan WPtel: [facility] [place] [place] Annual Well Visit 03/08/2021 Appointment: Radha Alan WPtel: [facility] [place] [facility] [place] RESCHEDULED 02/22/2021 Visit Diagnosis Plan: Mixed [...] : R73.9 06/29/2020 Appointment: Radha Alan WPtel: [address] [place], [place] [phone] [place] will bring new insurance to [facility] monday FOLLOW U P 06/29/2020 Care Plan: Referral Order SNOMED-CT : 30 0355774 Pending 06/29/2020 Visit Diagnosis Plan: Hyperglycemia, unspecified Discu ssion: Lab discussed Accuchecks daily Continue current meds Check CMP and HbA1C in 3mos then fwup ICD-9 : 790.29 ICD-10 : R73.9 12/26/2019 Visit Diagnosis Plan: Mixed hyperlipidemia Discussion: Mediterranean diet Combination of cardio and weight bearing exercise ICD-9 : 272.2 ICD-10 : E78.2 12/26/2019 Appointment: Radha Alan WPtel: [address] [place], [place] [phone] [place] TELEMEDICINE 12/26/2019 Visit Diagnosis Plan: Hyperglycemia, [...] : Z00.00 08/19/2019 Appointment: Radha Alan WPtel: [address] [place] [address] Annual Well Visit 08/19/2019 Visit Diagnosis Plan: Localized swelling, mass and lum p, trunk Discussion: Suspect vs lymph node Supportive care--prednisone and see if goes down Notify if rash, redness, fever, etc develop Consider US if persists ICD-9 : 786.6 ICD-10 : R22.2 04/18/2019 Appointment: Radha Alan WPtel: [address] [place] [address] ACUTE ILLNESS 04/18/2019 Patient Education: prednisone- [employer] Coupon [phone] [email or web address]/samplemd/resources/getResource/[email or web address]-[email or web address]-[email or web address] Completed 04/18/2019 Visit Diagnosis Plan: Family history [...] : E79.0 02/13/2019 Appointment: Radha Alan WPtel: [address] [place], [place] [phone] [place] FOLLOW UP 02/13/2019 Appointment: Trinity Cochran [address] [place] [address] CANCELED 02/04/2019 Care Plan: COMPREHEN METABOLIC PANEL SWAPNA NC : 95726-2 Pending 01/25/2019 Care Plan: COMPLETE CBC W/AUTO DIFF WBC LOINC : 13859-4 Pending 01/25/2019 Care Plan: A1C HPLC LOINC : 87007-5 Pending 01/25/2019 Care Plan: ASSAY OF BLOOD/URIC ACID Pendi ng 01/25/2019 Visit Diagnosis Plan: Encounter for therapeutic drug l evel monitoring Discussion: fasting blood work ordered to be completed at [facility] today. discussed wth patient to dc meloxicam and to use prn to reduce the risk of gi bleeds since taking baby asa. patient verbalized understanding. ICD-9 : V58.83 ICD-10 : Z51.81 04/23/2018 Visit Diagnosis Plan: Gout, unspecified Discussion: wi ll have updated blood work. order written out to be completed at [facility] today. has minimal gout attacks but can feel the "soreness" when he misses a dose. ICD-9 : 274.9 ICD-10 : M10.9 04/23/2018 Appointment: Trinity Cochran [address] [place], [place] [phone] [place] MEDICATION REVIEW 04/23/2018 Patient Education: Patient Medication Summary Completed 04/23/2018 Visit Diagnosis Plan: Hemorrhage of anus and rectum Di scussion: Referral to Dr. Meyers for colonoscopy Notify if worsening symptoms--right now has just been with morning BM--bright red, painless on stool and toilet paper ICD-9 : 569.3 ICD-10 : K62.5 09/18/2017 Appointment: Radha Alan WPtel: [address] [place], [place] [phone] [place] ACUTE ILLNESS 09/18/2017 Patient Education: Patient Medication Summary Completed 09/18/2017 Appointment: Radha Alan WPtel: [address] [place], [place] [phone] [place] 3/2 lm`sl 3/3 lm `sl 3/6 canceled~sl CANCELED 10/17/2016 Visit Diagnosis Plan: Localized edema Discussion: Comp ression socks HCTZ low dose Diet: Low Sodium Follow Up: 3 weeks ICD-9 : 782.3 ICD-10 : R60.0 09/28/2016 Visit Diagnosis Plan: Gout, unspecified Discussion: Ch adina CMP, uric acid now ICD-9 : 274.9 ICD-10 : M10.9 09/28/2016 Appointment: Radha Alan WPtel: [address] [place] [address] 09/27 confirmed`sl ACUTE ILLNESS 09/28/2016 Patient Education: Patient Medication Summary Completed 09/28/2016 Visit Diagnosis Plan: Fever, unspecified Discussion: F marcio - negative Exam unremarkable Likely viral illness Supportive care reviewed Follow up PRN ICD-9 : 780.60 ICD-10 : R50.9 09/15/2016 Appointment: Thuy Lauren [address] [place] [address] ACUTE ILLNESS 09/15/2016 Patient Education: Patient Medication [...] for wellness visit 03/01/2016 Appointment: Thuy Lauren [address] [place] [address] Annual Well Visit 03/01/2016 Patient Education: Patient Medication Summary Completed 03/01/2016 Visit Plan: Check fasting lab Low purine diet and check uric acid as well as DARREN, RA, ASO, B12 12/30/2014 Appointment: Radha Alan WPtel: [address] [place] [address] left vm 12/29... left vm 12/30 Annual Well Visit 0 12/30/2014 Patient Education: Patient Medication Summary Completed 12/30/2014 Appointment: Lorna Choudhary WPtel: [address] [place] [address] [place] FOLLOW UP 11/01/2013 Patient Education: Patient Medication Summary Completed 11/01/2013 Visit Plan: Increase allopurinol to 300m g po daily Change Daypro to Mobic 15mg po daily Add daily fish oil 1gm Add Vitamin D3 1000mg daily 08/16/2011 Appointment: Radha Alan WPtel: [address] [place] [address] [place] FOLLOW UP 08/16/2011 Patient Education: Patient Medication Summary Completed 08/16/2011 Appointment: Radha lAan WPtel: [address] [place] [address] [place] FOLLOW UP 08/09/2011 Appointment: Radha Alan WPtel: [address] [place] [address] FOLLOW UP 08/04/2011 Visit Plan: Check uric acid, Chem 7, HbA 1C, TSH, Free T4 Fwup pending above results 05/02/2011 Appointment: Radha Alan WPtel: [address] [place] [address] ACUTE ILLNESS 05/02/2011 Patient Education: Patient Medication Summary Completed 05/02/2011 Visit Plan: will do fasting labs: Sed ra te, Lipids, CBC, CMP, DARREN, RA factor. (Mag lab) Pt. denies injury but states pain has begun to progress. Trial of Flexeril. Discussed that he may use Ibuprofen as well. 12/13/2010 Appointment: Jyoti Guajardo WPtel: [address] [place] [address] ACUTE ILLNESS 12/13/2010 Patient Education: Patient Medication Summary Completed 12/13/2010 Referral: Chace Teague WPtel: [facility] [address] [place] Referral Appointment Requested Referral: Ben Barbour WPtel: [address] [id number] [place] Referral Initiated Instructions Comment Date . [...] Lipid s, CBC, CMP, DARREN, RA factor. ([facility] lab) Pt. denies injury but states pain [...]
--- OUTSIDE RECORDS SUMMARY | 2021-08-25 13:49 | XMS REPORT | CCD ---
Author Author Daniel Alan D.O. Organization RADHA ALAN DO [facility] Address [address] [place] [address] Phone Care Team Providers Care Voice Pathologist Name Role Phone Radha Alan D.O., PP Unavailable CCM Unavailable Summary Purpose Interface Exchange Insurance Providers Payer name Policy type / Coverage type Covered republican ID Effective Begin Date Effective End Date [facility] Commercial Insurance [id number] Unkno wn Family History Family History data not found Social History Social History Element Codes Description Effective Dates Marital status Unknown 08/16/[address]: [id number] Has never smoked or chewed tobacco 08/16/2011 Allergies, Adverse Reactions, Alerts Substance Reaction Codes Entered Date Inactivated Date Status * NO KNOWN FOOD ALLERGIES Unknown 08/16/2011 No Inactiv e Date Active * NO KNOWN DRUG ALLERGIES Unknown 08/16/2011 No Inactiv e Date Active * NO KNOWN ENVIRONMENTAL ALLERGIES Unknown 08/16/2011 N o Inactive Date Active Problems Condition Codes Effective Dates Condition Status Encounter for general adult medical examination withou t abnormal findings ICD- 10: Z00.00 ICD-9: V70.9 02/29/2016 Active Gout, unspecified ICD-10: M10.9 ICD-9: 274.9 02/29/2016 Active Hyperglycemia, unspecified ICD-10: R73.9 ICD-9: 790.29 01/25/2019 Active Mixed hyperlipidemia ICD-10: E78.2 ICD-9: 272.2 12/26/2019 Active Right knee pain ICD-10: M25.561 ICD-9: 719.46 03/08/2021 Active Penis disorder ICD-10: N48.9 ICD-9: 607.9 06/29/2020 Active Localized swelling, mass and lump, trunk ICD-10: R22.2 ICD-9: 786.6 04/18/2019 Active Family history of ischemic heart disease and other diseases of the circulatory system ICD-10: Z82.49 ICD-9: V17.3 02/13/2019 Active 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 inflammatory arthritis and tophaceous disease ICD-10: E79.0 ICD-9: 790.6 02/13/2019 Active Encounter for therapeutic drug level [...] Fill Instructions meloxicam 15 mg tablet RxNorm: 448048 TAKE 1 TABLET BY MOUTH EV IVANIA DAY 07/06/2021 08/04/2021 Active meloxicam 15 mg tablet RxNorm: 276589 TAKE 1 TABLET BY MOUTH EV IVANIA DAY 06/02/2021 06/02/2021 Inactive metformin ER 500 mg tablet,extended release 24 hr RxNorm: 86 0975 Take 1 Tablet(s) Oral QD 04/21/2021 07/19/2021 Active atorvastatin 10 mg tablet RxNorm: 106754 TAKE 1/2 TABLE T BY MOUTH ON Monday AND Monday04/21/2021 07/19/2021 Active allopurinol 100 mg tablet RxNorm: 329129 TAKE 2 TABLETS BY MOUT H EVERY DAY 04/21/2021 07/19/2021 Active atorvastatin 10 mg tablet RxNorm: 951921 TAKE 1/2 TABLE T BY MOUTH ON Monday AND Monday03/29/2021 03/29/2021 Inactive meloxicam 15 mg tablet RxNorm: 082515 TAKE 1 TABLET BY MOUTH EV IVANIA DAY 03/22/2021 04/20/2021 Inactive meloxicam 15 mg tablet RxNorm: 764505 TAKE 1 TABLET BY MOUTH EV IVANIA DAY 02/22/2021 02/22/2021 Inactive allopurinol 100 mg tablet RxNorm: 860015 TAKE 2 TABLETS BY MOUT H EVERY DAY 01/21/2021 01/21/2021 Inactive meloxicam 15 mg tablet RxNorm: 556962 TAKE 1 TABLET BY MOUTH EV IVANIA DAY 01/21/2021 01/21/2021 Inactive metformin ER 500 mg tablet,extended release 24 hr RxNorm: 86 0975 Take 1 Tablet(s) Oral QD 01/21/2021 01/21/2021 Inactive metformin ER 500 mg tablet,extended release 24 hr RxNorm: 86 0975 1 Tablet(s) Oral QD 12/29/2020 12/29/2020 Inactive Due for fasting labs/follow up before 90 day supply allopurinol 100 mg tablet RxNorm: 543469 TAKE 2 TABLETS BY MOUT H EVERY DAY 11/08/2020 11/08/2020 Inactive atorvastatin 10 mg tablet RxNorm: 797596 TAKE 1/2 TABLE T BY MOUTH ON Monday AND Monday11/08/2020 11/08/2020 Inactive metformin ER 500 mg tablet,extended release 24 hr RxNorm: 86 0975 TAKE 1 TABLET BY MOUTH EVERY DAY 09/21/2020 12/28/2020 Inactive meloxicam 15 mg tablet RxNorm: 626681 TAKE 1 TABLET BY MOUTH EV IVANIA DAY 08/24/2020 08/24/2020 Inactive allopurinol 100 mg tablet RxNorm: 299672 TAKE 2 TABLETS BY MOUT H EVERY DAY 08/24/2020 11/07/2020 Inactive atorvastatin 10 mg tablet RxNorm: 533842 1/2 Tablet(s) Oral MWF 11/07/2020 Inactive metformin ER 500 mg tablet,extended release 24 hr RxNorm: 86 0975 TAKE 1 TABLET BY MOUTH EVERY DAY 06/23/2020 09/20/2020 Inactive allopurinol 100 mg tablet RxNorm: 990241 TAKE 2 TABLETS BY MOUT H EVERY DAY 04/24/2020 07/22/2020 Inactive meloxicam 15 mg tablet RxNorm: 411853 TAKE 1 TABLET BY MOUTH EV IVANIA DAY 04/24/2020 07/22/2020 Inactive metformin ER 500 mg tablet,extended release 24 hr RxNorm: 86 0975 TAKE 1 TABLET BY MOUTH EVERY DAY 03/23/2020 06/20/2020 Inactive allopurinol 100 mg tablet RxNorm: 644261 TAKE 2 TABLETS BY MOUT H EVERY DAY 02/16/2020 04/23/2020 Inactive allopurinol 100 mg tablet RxNorm: 103297 TAKE 2 TABLETS BY MOUT H EVERY DAY 01/16/2020 02/15/2020 Inactive metformin ER 500 mg tablet,extended release 24 hr RxNorm: 86 0975 TABLET(S) 1 TABLET(S) PO QD 12/16/2019 03/14/2020 Inactive Needs updated la bs before further refillsPatient requests 90 days supply allopurinol 100 mg tablet RxNorm: 965756 TAKE 2 TABLETS BY MOUT H EVERY DAY 12/16/2019 01/14/2020 Inactive meloxicam 15 mg tablet RxNorm: 513737 TAKE 1 TABLET BY MOUTH EV IVANIA DAY 12/16/2019 06/28/2020 Inactive meloxicam 15 mg tablet RxNorm: 689856 TAKE 1 TABLET BY MOUTH EV IVANIA DAY 11/04/2019 12/15/2019 Inactive allopurinol 100 mg tablet RxNorm: 883220 TAKE 2 TABLETS BY MOUT H EVERY DAY 09/09/2019 12/07/2019 Inactive metformin ER 500 mg tablet,extended release 24 hr RxNorm: 86 0975 TABLET(S) 1 TABLET(S) PO QD 09/09/2019 12/15/2019 Inactive Needs updated la bs before further refillsPatient requests 90 days supply meloxicam 15 mg tablet RxNorm: 455832 TAKE 1 TABLET BY MOUTH EV IVANIA DAY 08/01/2019 10/29/2019 Inactive allopurinol 100 mg tablet RxNorm: 072859 TAKE 2 TABLETS BY MOUT H EVERY DAY 08/01/2019 08/30/2019 Inactive meloxicam 15 mg tablet RxNorm: 666236 1 Tablet(s) PO QD 04/25/2019 Inactive allopurinol 100 mg tablet RxNorm: 984299 2 TABLET(S) PO QD 04/24/2007/22/2019 Inactive prednisone 20 mg tablet RxNorm: 123820 1 Tablet(s) PO B ID for 4 days then 1 po daily for 4 days 04/18/2019 08/18/2019 Inactive allopurinol 100 mg tablet RxNorm: 952705 2 TABLET(S) PO QD 03/28/2005/26/2019 Inactive Patient requests 90 days s upply metformin ER 500 mg tablet,extended release 24 hr RxNorm: 86 0975 TABLET(S) 1 TABLET(S) PO QD NEEDS UPDATED FASTING LABS 02/26/2019 09/08/2019 Inact vielka Needs updated labs before further refillsPatient requests 90 days supply allopurinol 100 mg tablet RxNorm: 739087 2 TABLET(S) PO QD 02/22/2003/27/2019 Inactive metformin [...] further refills allopurinol 100 mg tablet RxNorm: 360803 2 Tablet(s) PO QD 04/02/20/2019 Inactive metformin ER 500 mg tablet,extended release 24 hr RxNorm: 86 0975 1 TABLET(S) PO QD NEEDS UPDATED FASTING LABS 10/29/2018 11/25/2018 Inactive metformin ER 500 mg tablet,extended release 24 hr RxNorm: 86 0975 1 Tablet(s) PO QD Needs updated fasting labs 09/26/2018 10/25/2018 Inactive allopurinol 100 mg tablet RxNorm: 395445 2 TABLET(S) PO QD 08/22/1911/19/2018 Inactive allopurinol 100 mg tablet RxNorm: 516837 2 TABLET(S) PO QD 05/23/20 18 08/20/2018 Inactive metformin ER 500 mg tablet,extended release 24 hr RxNorm: 86 0975 1 Tablet(s) PO QD 04/25/2018 07/23/2018 Inactive metformin ER 500 mg tablet,extended release 24 hr RxNorm: 86 0975 1 Tablet(s) PO QD 04/25/2018 04/24/2018 Inactive allopurinol 100 mg tablet RxNorm: 744217 2 Tablet(s) PO QD 04/20/20 18 05/19/2018 Inactive allopurinol 100 mg tablet RxNorm: 693893 2 Tablet(s) PO QD 04/02/20 18 04/16/2018 Inactive allopurinol 100 mg tablet RxNorm: 039744 2 Tablet(s) PO QD 03/08/20 18 2018 Inactive Mobic 15 mg tablet RxNorm: 657685 1 TABLET(S) PO QD 03/07/20182017 Inactive [SAVINGS FOR NON-COVERED DRUGS -- BIN: 358, PCN: ASPROD1, Group: XXXXX, ID# [id number], Questions: . THIS IS NOT INSURANCE.] allopurinol 100 mg tablet RxNorm: 291416 2 Tablet(s) PO QD 10/28/19 18 03/08/2018 Inactive allopurinol 100 mg tablet RxNorm: 635293 2 Tablet(s) PO QD 04/03/20 17 10/27/2017 Inactive Mobic 15 mg tablet RxNorm: 895206 1 Tablet(s) PO QD 03/01/20172017 Inactive [SAVINGS FOR NON-COVERED DRUGS -- BIN:00 3585, PCN: ASPROD1, Group: XXXXX, ID# [id number], Questions: . THIS IS NOT INSURANCE.] hydrochlorothiazide 12.5 mg capsule RxNorm: 637020 1 Capsule(s) PO QAM 09/28/2016 09/17/2017 Inactive allopurinol 100 mg tablet RxNorm: 782034 2 Tablet(s) PO QD 09/15/19 17 04/03/2017 Inactive allopurinol 100 mg tablet RxNorm: 371828 2 Tablet(s) PO QD 04/04/20 16 09/14/2016 Inactive allopurinol 100 mg tablet RxNorm: 181386 2 Tablet(s) PO QD 03/01/20 16 04/03/2016 Inactive Mobic 15 mg tablet RxNorm: 965946 1 Tablet(s) PO QD 03/01/20162016 Inactive [SAVINGS FOR NON-COVERED DRUGS -- BIN:00 3585, PCN: ASPROD1, Group: XXXXX, ID# [id number], Questions: . THIS IS NOT INSURANCE.] allopurinol 100 mg tablet RxNorm: 499911 2 Tablet(s) PO QD Needs routine appointment 02/17/2016 04/04/2016 Inactive allopurinol 100 mg tablet RxNorm: 756896 2 Tablet(s) PO QD Needs routine appointment 01/18/2016 02/17/2016 Inactive allopurinol 100 mg tablet RxNorm: 383658 2 Tablet(s) PO QD Needs routine appointment 11/16/2015 01/18/2016 Inactive Mobic 15 mg tablet RxNorm: 266032 1 TABLET(S) PO QD . 11/13/201502/11 Inactive [SAVINGS FOR NON-COVERED DRUGS -- BIN:00 3585, PCN: ASPROD1, Group: XXXXX, ID# [email or web address], Questions: . THIS IS NOT INSURANCE.] Mobic 15 mg tablet RxNorm: 494912 1 Tablet(s) PO QD . 08/17/2015/08/2015 Inactive [SAVINGS FOR NON-COVERED DRUGS -- BIN:00 3585, PCN: ASPROD1, Group: XXXXX, ID# [id number], Questions: . THIS IS NOT INSURANCE.] allopurinol 300 mg tablet RxNorm: 533862 Tablet(s) 1 TA BLET(S) PO QD TAKE 1 BY MOUTH DAILY 05/04/2015 11/16/2015 Inactive Mobic 15 mg tablet RxNorm: 485492 1 Tablet(s) PO QD Ne eds seen for routine appointment . 01/26/2015 08/17/2015 Inactive [SAVINGS FOR NON -COVERED DRUGS -- BIN:597180, PCN: ASPROD1, Group: XXXXX, ID# [id number], Questions: . THIS IS NOT INSURANCE.] Mobic 15 mg tablet RxNorm: 290413 1 Tablet(s) PO QD Ne eds seen for routine appointment . 12/24/2014 01/26/2015 Inactive [SAVINGS FOR NON -COVERED DRUGS -- BIN:628325, PCN: ASPROD1, Group: XXXXX, ID# [id number], Questions: . THIS IS NOT INSURANCE.] Mobic 15 mg tablet RxNorm: 765834 1 Tablet(s) PO QD Ne eds seen for routine appointment . 11/21/2014 12/20/2014 Inactive allopurinol 300 mg tablet RxNorm: 562357 Tablet(s) 1 TA BLET(S) PO QD TAKE 1 BY MOUTH DAILY 10/28/2014 05/04/2015 Inactive Mobic 15 mg tablet RxNorm: 774225 1 TABLET(S) PO QD TA KE 1 TABLET BY MOUTH DAILY . 05/23/2014 08/20/2014 Inactive Mobic 15 mg tablet RxNorm: 435670 1 Tablet(s) PO QD TA KE 1 TABLET BY MOUTH DAILY . 05/22/2014 11/21/2014 Inactive allopurinol 300 mg tablet RxNorm: 589744 1 TABLET(S) PO QD TAKE 1 BY MOUTH DAILY 05/02/2014 10/28/2014 Inactive cyclobenzaprine 10 mg tablet RxNorm: 282658 1 Tablet(s) PO TID Take one half to one by mouth three times a day as needed for muscle pain 11/01/2013 Inactive allopurinol 300 mg tablet RxNorm: 403613 1 Tablet(s) PO QD Take 1 by mouth daily 11/01/2013 04/29/2014 Inactive Mobic 15 mg tablet RxNorm: 635274 1 Tablet(s) PO QD TA KE 1 TABLET BY MOUTH DAILY . 11/01/2013 04/29/2014 Inactive allopurinol 300 mg tablet RxNorm: 093308 1 Tablet(s) PO QD Needs appt--not seen since 201110/14/2013 10/31/2013 Inactive Mobic 15 mg tablet RxNorm: 839966 Tablet(s) PO TAKE 1 TABLET BY MOUTH DAILY Last refill until appt. is made to see 10/14/2013 10/31/2013 Inactive Mobic 15 mg tablet RxNorm: 517538 1 Tablet(s) PO QD Ne eds appt---not seen since 201109/10/2013 10/14/2013 Inactive allopurinol 300 mg tablet RxNorm: 555855 1 Tablet(s) PO QD Needs appt--not seen since 201109/10/2013 10/09/2013 Inactive Mobic 15 mg tablet RxNorm: 555640 1 Tablet(s) PO QD 03/04/20132013 Inactive allopurinol 300 mg tablet RxNorm: 274834 1 Tablet(s) PO QD 03/04/20 13 08/30/2013 Inactive allopurinol 300 mg tablet RxNorm: 135216 1 Tablet(s) PO QD 10/23/19 13 02/18/2013 Inactive allopurinol 300 mg tablet RxNorm: 222797 1 Tablet(s) PO QD 06/11/20 12 10/22/2012 Inactive Mobic 15 mg tablet RxNorm: 708731 1 Tablet(s) PO QD 05/30/20122012 Inactive Mobic 15 mg tablet RxNorm: 498845 1 Tablet(s) PO QD 05/30/20122012 Inactive allopurinol 300 mg tablet RxNorm: 948233 1 Tablet(s) PO QD 01/05/20 12 05/03/2012 Inactive Mobic 15 mg tablet RxNorm: 572380 1 Tablet(s) PO QD 01/05/20122011 Inactive Mobic 15 mg Tab RxNorm: 007438 1 Tablet(s) PO QD 08/16/2011 01/05/2012 Inactive allopurinol 300 mg Tab RxNorm: 766317 1 Tablet(s) PO QD 08/16/2011 Inactive Daypro 600 mg Tab RxNorm: 951375 2 Tablet(s) PO QD 07/27/2011 012 Inactive allopurinol 100 mg Tab RxNorm: 805381 1 Tablet(s) PO QD 07/27/2011 Inactive Flexeril 10 mg Tab RxNorm: 214704 1 Tablet(s) PO TID 12/13/201012/19 Inactive Fish Oil 360 mg-1,200 mg capsule,delayed release RxNorm: 1 Capsule(s) PO QD 11/01/2013 Active aspirin 81 mg tablet RxNorm: 742940 1 Tablet(s) PO QD 02/13/201909/2018 Inactive meloxicam 15 mg tablet RxNorm: 460299 1 Tablet(s) PO QD 04/25/2019 Inactive allopurinol 100 mg tablet RxNorm: 915301 2 Tablet(s) PO QD 11/16/19 16 11/15/2015 Inactive Medication Administered No Medication Administered data Immunizations No Immunization data Results No Results data Procedures Procedure Codes Date INFLUENZA ASSAY W/OPTIC CPT-4: 21851 09/15/2016 Vital Signs Date Vital 03/08/2021 Blood Pressure 1: 126/76 Code: 8480-6 BMI: 24.7 Code: 58236-5 Heart Rate 1: 76 bpm Height: 5'10" Code: 8302-2 Respiratory Rate: 20 bpm SpO2: 98% Temperature: 36.6 (C) / 97.9 (F) Weight: 172 lbs Code: 49603-7 06/29/2020 Blood Pressure 1: 136/78 Code: 8480-6 Heart Rate 1: 80 bpm Respiratory Rate: 16 bpm SpO2: 97% Temperature: 36.7 (C) / 98.1 (F) We ight: 170 lbs Code: 08508-5 08/19/2019 Blood Pressure 1: 126/82 Code: 8480-6 BMI: 24.7 Code: 03558-1 Heart Rate 1: 68 bpm Height: 5'10" Code: 8302-2 Respiratory Rate: 16 bpm SpO2: 99% Temperature: 36.6 (C) / 97.9 (F) Weight: 172 lbs Code: 00700-0 04/18/2019 Blood Pressure 1: 124/78 Code: 8480-6 Heart Rate 1: 72 bpm Respiratory Rate: 18 bpm SpO2: 98% Temperature: 36.8 (C) / 98.2 (F) We ight: 175 lbs Code: 83155-6 02/13/2019 Blood Pressure 1: 122/70 Code: 8480-6 Heart Rate 1: 60 bpm Respiratory Rate: 20 bpm SpO2: 96% Temperature: 36.6 (C) / 97.8 (F) We ight: 178 lbs Code: 43587-3 04/23/2018 Blood Pressure 1: 116/78 Code: 8480-6 BMI: 25.3 Code: 84719-9 Heart Rate 1: 64 bpm Height: 5'10" Code: 8302-2 Respiratory Rate: 20 bpm SpO2: 98% Temperature: 36.9 (C) / 98.4 (F) Weight: 176 lbs Code: 70063-4 09/18/2017 Blood Pressure 1: 144/86 Code: 8480-6 BMI: 26.1 Code: 36535-7 Heart Rate 1: 92 bpm Height: 5'10" Code: 8302-2 Respiratory Rate: 20 bpm Temperat ure: 36.6 (C) / 97.8 (F) Weight: 182 lbs Code: 47069-5 09/28/2016 Blood Pressure 1: 136/86 Code: 8480-6 BMI: 25.1 Code: 81918-4 Heart Rate 1: 84 bpm Height: 5'10" Code: 8302-2 Respiratory Rate: 20 bpm SpO2: 97% Temperature: 36.9 (C) / 98.5 (F) Weight: 175 lbs Code: 02947-4 09/15/2016 Blood Pressure 1: 142/88 Code: 8480-6 BMI: 25.7 Code: 19372-3 Heart Rate 1: 104 bpm Height: 5'10" Code: 8302-2 Respiratory Rate: 20 bpm SpO2: 98% Temperature: 37.6 (C) / 99.7 (F) Weight: 179 lbs Code: 40085-1 03/01/2016 Blood Pressure 1: 118/78 Code: 8480-6 BMI: 25.4 Code: 86156-6 Heart Rate 1: 104 bpm Height: 5'10" Code: 8302-2 Respiratory Rate: 22 bpm SpO2: 98% Temperature: 36.1 (C) / 96.9 (F) Weight: 177 lbs Code: 37482-5 12/30/2014 Blood Pressure 1: 128/78 Code: 8480-6 BMI: 25.0 Code: 63192-5 Heart Rate 1: 84 bpm Height: 5'10" Code: 8302-2 Respiratory Rate: 20 bpm Temperat ure: 36.7 (C) / 98.0 (F) Weight: 174 lbs Code: 73308-0 11/01/2013 Blood Pressure 1: 122/78 Code: 8480-6 BMI: 25.5 Code: 96603-0 Heart Rate 1: 80 bpm Height: 5'10" Code: 8302-2 Respiratory Rate: 20 bpm Temperat ure: 36.8 (C) / 98.2 (F) Weight: 178 lbs Code: 37439-4 08/16/2011 Blood Pressure 1: 122/78 Code: 8480-6 BMI: 24.0 Code: 75088-4 Heart Rate 1: 76 bpm Height: 5'10" Code: 8302-2 Respiratory Rate: 20 bpm Temperat ure: 36.9 (C) / 98.4 (F) Weight: 167 lbs Code: 17533-3 05/02/2011 Blood Pressure 1: 128/72 Code: 8480-6 Heart Rate 1: 58 bpm Weight: 164 lbs Code: 88800-1 12/13/2010 Blood Pressure 1: 122/64 Code: 8480-6 Te mperature: 36.6 (C) / 97.8 (F) Weight: 165 lbs Code: 31320-5 Functional Status No Functional Status data Reason For Visit Reason For Visit Effective Dates Notes follow up 03/08/2021 follow up 06/29/2020 follow [...] pain Encounters Encounter Performer Location Codes Date (82298) PREV VISIT EST AGE 40-64 Diagnosis: Encounter for general adult medical examination without abnormal findings[ICD10: Z00.00] Diagnosis: Hyperglycemia, unspecified[ICD10: R73.9] Diagnosis: Gout, unspecified[ICD10: M10.9] Diagnosis: Mixed hyperlipidemia[ICD10: E78.2] Diagnosis: Right knee pain[ICD10: M25.561] Radha [place] SharonAneesh [employer]ADARIUS [employer] CPT-4: 09533 03/08/2021 ([id number]) OFFICE/OUTPATIENT VISIT EST Diagnosis: Hyperglycemia, unspecified[ICD10: R73.9] Diagnosis: Mixed hyperlipidemia[ICD10: E78.2] Diagnosis: Penis disorder[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] Radha [place] UnbxdAneesh [employer] CPT-4: 91469 06/29/2020 ([id number]) OFFICE/OUTPATIENT VISIT EST Diagnosis: Hyperglycemia, unspecified[ICD10: R73.9] Diagnosis: Mixed hyperlipidemia[ICD10: E78.2] Radha Alan [facility] CPT-4: 82483 12/26/2019 ([id number]) PREV VISIT EST AGE 40-64 Diagnosis: Encounter for general adult medical examination without abnormal findings[ICD10: Z00.00] Diagnosis: Gout, unspecified[ICD10: M10.9] Diagnosis: Hyperglycemia, unspecified[ICD10: R73.9] Radha [place] UnbxdAneesh [employer]LYN[employer] CPT-4: 81152 08/19/2019 ([id number]) OFFICE/OUTPATIENT VISIT EST Diagnosis: Localized swelling, mass and lump, trunk[ICD10: R22.2] Radha [place] UnbxdAneesh [employer]KAITLYNNTelekenex CPT-4: 97012 04/18/2019 ([id number]) OFFICE/OUTPATIENT VISIT EST Diagnosis: 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 inflammatory arthritis and tophaceous disease[ICD10: E79.0] Diagnosis: Hyperglycemia, unspecified[ICD10: R73.9] Diagnosis: Family history of ischemic heart disease and other diseases of the circulatory system[ICD10: Z82.49] Radha Berger [employer] [facility] CPT-4: 84695 02/13/2019 ([id number]) OFFICE/OUTPATIENT VISIT EST Diagnosis: Gout, unspecified[ICD10: M10.9] Diagnosis: Encounter for therapeutic drug level monitoring[ICD10: Z51.81] Trinity ALAN [employer] [facility] CPT-4: 03867 04/23/2018 ([id number]) OFFICE/OUTPATIENT VISIT EST Diagnosis: Hemorrhage of anus and rectum[ICD10: K62.5] Radha ALAN [employer] [facility] CPT-4: 85557 09/18/2017 ([id number]) OFFICE/OUTPATIENT VISIT EST Diagnosis: Localized edema[ICD10: R60.0] Diagnosis: Gout, unspecified[ICD10: M10.9] Radha ALAN [employer] [facility] CPT-4: 74440 09/28/2016 ([id number]) OFFICE/OUTPATIENT VISIT EST Diagnosis: Fever, unspecified[ICD10: R50.9] Diagnosis: Myalgia[ICD10: M79.1] Diagnosis: Viral infection, unspecified[ICD10: B34.9] Thuy LOVELLLINE SharonAneesh SERGE [employer] [facility] CPT-4: 14956 09/15/2016 ([id number]) PREV VISIT EST AGE 40-64 Diagnosis: Encounter for general adult medical examination without abnormal findings[ICD10: Z00.00] Diagnosis: Gout, unspecified[ICD10: M10.9] Thuy Leonidas LOVELLLINE SharonAneesh SERGE [employer] [facility] CPT-4: 06871 03/01/2016 ([id number]) PREV VISIT EST AGE 40-64 Diagnosis: ROUTINE MEDICAL EXAM[ICD9: V70.0] Diagnosis: Arthralgia[ICD9: 719.40] Diagnosis: Hyperuricemia[ICD9: 790.6] aRdha HerreraAneesh [employer] CPT-4: 20755 12/30/2014 ([id number]) PREV VISIT EST AGE 40-64 Diagnosis: ROUTINE MEDICAL EXAM[ICD9: V70.0] Diagnosis: Arthralgia[ICD9: 719.40] Diagnosis: Hyperuricemia[ICD9: 790.6] Lorna BruceMarixaCurry HerreraAneesh [employer] CPT-4: 44822 11/01/2013 OFFICE/OUTPATIENT VISIT EST Diagnosis: ARTHRALGIA-MULTIPLE SITES[ICD9: 719.49] Diagnosis: Hyperuricemia[ICD9: 790.6] Diagnosis: GASTROENTERITIS[ICD9: 558.9] Radha Stroudkaitlynnladarius LOVELLRADHA SharonAneesh [employer] CPT-4: 17340 08/16/2011 OFFICE/OUTPATIENT VISIT EST Diagnosis: JOINT PAIN-PELVIS[ICD9: 719.45] Diagnosis: Leg pain[ICD9: 729.5] Diagnosis: ARTHRALGIA-MULTIPLE SITES[ICD9: 719.49] Radha Maximuskaitlynnladarius PATRICIA SANDRAGERALD SharonAneesh [employer] CPT-4: 11533 05/02/2011 ([id number]) OFFICE/OUTPATIENT VISIT EST Radha Orekaitlynnladarius CARLOS SanjayENIO SharonAneesh [employer] CPT-4: 85140 12/13/2010 Plan of Care Planned Activity Notes Codes Status Date Visit Diagnosis Plan: Encounter for [facility] adult medical examination without abnormal findings [...] : R73.9 03/08/2021 Appointment: Radha Alan WPtel: [address] [place], [place] [phone] Annual Well Visit 03/08/2021 Appointment: Radha Alan WPtel: [address] [place], [place] [phone] US RESCHEDULED 02/22/2021 Visit Diagnosis Plan: Mixed [...] : R73.9 06/29/2020 Appointment: Radha Alan WPtel: [address] [place] [address] [facility] P 06/29/2020 Care Plan: Referral Order SNOMED-CT : 30 [id number] Pending 06/29/2020 Visit Diagnosis Plan: Hyperglycemia, unspecified Discu ssion: Lab discussed Accuchecks daily Continue current meds Check CMP and HbA1C in 3mos then fwup ICD-9 : 790.29 ICD-10 : R73.9 12/26/2019 Visit Diagnosis Plan: Mixed hyperlipidemia Discussion: Mediterranean diet Combination of cardio and weight bearing exercise ICD-9 : 272.2 ICD-10 : E78.2 12/26/2019 Appointment: Radha Alan WPtel: [address] [place], [place] [phone] [place] TELEMEDICINE 12/26/2019 Visit Diagnosis Plan: Hyperglycemia, unspecified Discu ssion: Check HbA1C ICD-9 : 790.29 ICD-10 : R73.9 08/19/2019 Visit Diagnosis Plan: Gout, unspecified Discussion: adina uric acid ICD-9 : 274.9 ICD-10 : M10.9 08/19/2019 Visit Diagnosis Plan: Encounter for [facility] adult medical examination without abnormal findings Discussion: Mediterranean diet Combinati on of cardio and weight bearing exercise Update labs ICD-9 : V70.9 ICD-10 : Z00.00 08/19/2019 Appointment: Radha Alan WPtel: [address] [place], [place] [phone] Annual Well Visit 08/19/2019 Visit Diagnosis Plan: Localized swelling, mass and lum p, trunk Discussion: Suspect vs lymph node Supportive care--prednisone and see if goes down Notify if rash, redness, fever, etc develop Consider US if persists ICD-9 : 786.6 ICD-10 : R22.2 04/18/2019 Appointment: Radha Alan WPtel: [address] [place], [place] [phone] ACUTE ILLNESS 04/18/2019 Patient Education: prednisone- [employer] Coupon [phone] [email or web address] Completed 04/18/2019 Visit Diagnosis Plan: Family history [...] : E79.0 02/13/2019 Appointment: Radha Alan WPtel: [facility] [phone] US FOLLOW UP 02/13/2019 Appointment: [facility] [address] [id number] [place] CANCELED 02/04/2019 Care Plan: COMPREHEN METABOLIC PANEL SWAPNA [place] : 98973-8 Pending 01/25/2019 Care Plan: COMPLETE CBC W/AUTO DIFF WBC LOINC : 22001-9 Pending 01/25/2019 Care Plan: A1C HPLC LOINC : 37493-5 Pending 01/25/2019 Care Plan: ASSAY OF BLOOD/URIC ACID Pendi ng 01/25/2019 Visit Diagnosis Plan: Encounter for therapeutic drug l evel monitoring Discussion: fasting blood work ordered to be completed at [facility] today. discussed wth patient to dc meloxicam and to use prn to reduce the risk of gi bleeds since taking baby asa. patient verbalized understanding. ICD-9 : V58.83 ICD-10 : Z51.81 04/23/2018 Visit Diagnosis Plan: Gout, unspecified Discussion: wi ll have updated blood work. order written out to be completed at [facility] today. has minimal gout attacks but can feel the "soreness" when he misses a dose. ICD-9 : 274.9 ICD-10 : M10.9 04/23/2018 Appointment: [facility] [address] [id number] MEDICATION REVIEW 04/23/2018 Patient Education: Patient Medication Summary Completed 04/23/2018 Visit Diagnosis Plan: Hemorrhage of anus and rectum Di scussion: Referral to Dr. Meyers for colonoscopy Notify if worsening symptoms--right now has just been with morning BM--bright red, painless on stool and toilet paper ICD-9 : 569.3 ICD-10 : K62.5 09/18/2017 Appointment: Radha Alan WPtel: [address] [place], [place] [id number] ACUTE ILLNESS 09/18/2017 Patient Education: Patient Medication Summary Completed 09/18/2017 Appointment: Radha Alan WPtel: [address] [place], [place] [id number] [place] 3/2 lm`sl 3/3 lm `sl 3/6 canceled~sl CANCELED 10/17/2016 Visit Diagnosis Plan: Localized edema Discussion: Comp ression socks HCTZ low dose Diet: Low Sodium Follow Up: 3 weeks ICD-9 : 782.3 ICD-10 : R60.0 09/28/2016 Visit Diagnosis Plan: Gout, unspecified Discussion: Ch adina CMP, uric acid now ICD-9 : 274.9 ICD-10 : M10.9 09/28/2016 Appointment: Radha Alan WPtel: [address] [place], [place] [id number] 09/27 confirmed`sl ACUTE ILLNESS 09/28/2016 Patient Education: Patient Medication Summary Completed 09/28/2016 Visit Diagnosis Plan: Fever, unspecified Discussion: F marcio - negative Exam unremarkable Likely viral illness Supportive care reviewed Follow up PRN ICD-9 : 780.60 ICD-10 : R50.9 09/15/2016 Appointment: Thuy Lauren [address] [place], [place] [id number] ACUTE ILLNESS 09/15/2016 Patient Education: Patient Medication [...] for wellness visit 03/01/2016 Appointment: Thuy Lauren [address] [place], [place] [id number] Annual Well Visit 03/01/2016 Patient Education: Patient Medication Summary Completed 03/01/2016 Visit Plan: Check fasting lab Low purine diet and check uric acid as well as DARREN, RA, ASO, B12 12/30/2014 Appointment: Radha [facility]el[facility] [facility] [id number] [facility] 12/29... left 12/30 Annual Well Visit 0 12/30/2014 Patient Education: Patient Medication Summary Completed 12/30/2014 Appointment: Lorna Choudhary WPtel: [address] [place] [address] [place] FOLLOW UP 11/01/2013 Patient Education: Patient Medication Summary Completed 11/01/2013 Visit Plan: Increase allopurinol to 300m g po daily Change Daypro to Mobic 15mg po daily Add daily fish oil 1gm Add Vitamin D3 1000mg daily 08/16/2011 Appointment: Radha Alan WPtel: [address] [place] [address] FOLLOW UP 08/16/2011 Patient Education: Patient Medication Summary Completed 08/16/2011 Appointment: Radha Alan WPtel: [address] [place] [address] FOLLOW UP 08/09/2011 Appointment: Radha Alan WPtel: [address] [place] [address] FOLLOW UP 08/04/2011 Visit Plan: Check uric acid, Chem 7, HbA 1C, TSH, Free T4 Fwup pending above results 05/02/2011 Appointment: Radha Alan WPtel: [address] [place] [address] ACUTE ILLNESS 05/02/2011 Patient Education: Patient Medication Summary Completed 05/02/2011 Visit Plan: will do fasting labs: Sed ra te, Lipids, CBC, CMP, DARREN, RA factor. (Mag lab) Pt. denies injury but states pain has begun to progress. Trial of Flexeril. Discussed that he may use Ibuprofen as well. 12/13/2010 Appointment: Jyoti Guajardo WPtel: [address] [place] [address] ACUTE ILLNESS 12/13/2010 Patient Education: Patient Medication Summary Completed 12/13/2010 Referral: Chace Teague WPtel: [address] [place] [address] [place] Referral Appointment Requested [facility]: [facility] [address] [id number] [place] Referral Initiated Instructions Comment . Order req for fasting labs to [...] up at least annually for wellness visit . Check fasting lab Low purine diet and check uric acid as well as DARREN, RA, ASO, B12 . Increase allopurinol to 300mg po daily Change Daypro to Mobic 15mg po daily Add daily fish oil 1gm Add Vitamin D3 1000mg daily . Check uric acid, Chem 7, HbA1C, TSH, F ree T4 Fwup pending above results . will do fasting labs: Sed rate, Lipid s, CBC, CMP, DARREN, RA factor. (Mag lab) Pt. denies injury but states pain has begun to progress. Trial of Flexeril. Discussed that he may use Ibuprofen as well. Medical Equipment No Medical Equipment data Health Concerns Section Health Concerns data not found Goals Section Goals data not found Interventions Section Interventions data not found Health Status Evaluations/Outcomes Section Health Status Evaluations/Outcomes data not found Advance Directives No Advance Directive data
--- OUTSIDE RECORDS SUMMARY | 2021-08-25 13:49 | XMS REPORT | CCD ---
Author Author Daniel Alan D.O. 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 Name Role Phone Radha Alan D.O., PP Unavailable CCM Unavailable Summary Purpose Interface Exchange Insurance Providers Payer name Policy type / Coverage type Covered libertarian ID Effective Begin Date Effective End Date Blue Cross Blue Shield Blue Cross/Blue Shield [id number] 2021 Unknown Family History Family History data not found Social History Social History Element Codes Description Effective Dates Marital status Unknown 08/16/[address]: [id number] Has never smoked or chewed tobacco 08/16/2011 [...] Fill Instructions allopurinol 100 mg tablet RxNorm: 021115 TAKE 2 TABLETS BY MOUT H EVERY DAY 07/15/2021 10/12/2021 Active metformin ER 500 mg tablet,extended release 24 hr RxNorm: 86 0975 Take 1 Tablet(s) Oral QD 07/15/2021 10/12/2021 Active meloxicam 15 mg tablet RxNorm: 978181 TAKE 1 TABLET BY MOUTH EV IVANIA DAY 07/06/2021 08/04/2021 Active meloxicam 15 mg tablet RxNorm: 290775 TAKE 1 TABLET BY MOUTH EV IVANIA DAY 06/02/2021 06/02/2021 Inactive atorvastatin 10 mg tablet RxNorm: 323593 TAKE 1/2 TABLE T BY MOUTH ON Monday AND Monday04/21/2021 07/19/2021 Inactive metformin ER 500 mg tablet,extended release 24 hr RxNorm: 86 0975 Take 1 Tablet(s) Oral QD 04/21/2021 04/21/2021 Inactive allopurinol 100 mg tablet RxNorm: 099530 TAKE 2 TABLETS BY MOUT H EVERY DAY 04/21/2021 04/21/2021 Inactive atorvastatin 10 mg tablet RxNorm: 422350 TAKE 1/2 TABLE T BY MOUTH ON Monday AND Monday03/29/2021 03/29/2021 Inactive meloxicam 15 mg tablet RxNorm: 530401 TAKE 1 TABLET BY MOUTH EV IVANIA DAY 03/22/2021 04/20/2021 Inactive meloxicam 15 mg tablet RxNorm: 648902 TAKE 1 TABLET BY MOUTH EV IVANIA DAY 02/22/2021 02/22/2021 Inactive allopurinol 100 mg tablet RxNorm: 405544 TAKE 2 TABLETS BY MOUT H EVERY DAY 01/21/2021 01/21/2021 Inactive meloxicam 15 mg tablet RxNorm: 129800 TAKE 1 TABLET BY MOUTH EV IVANIA DAY 01/21/2021 01/21/2021 Inactive metformin ER 500 mg tablet,extended release 24 hr RxNorm: 86 0975 Take 1 Tablet(s) Oral QD 01/21/2021 01/21/2021 Inactive metformin ER 500 mg tablet,extended release 24 hr RxNorm: 86 0975 1 Tablet(s) Oral QD 12/29/2020 12/29/2020 Inactive Due for fasting labs/follow up before 90 day supply allopurinol 100 mg tablet RxNorm: 316926 TAKE 2 TABLETS BY MOUT H EVERY DAY 11/08/2020 11/08/2020 Inactive atorvastatin 10 mg tablet RxNorm: 076970 TAKE 1/2 TABLE T BY MOUTH ON Monday AND Monday11/08/2020 11/08/2020 Inactive metformin ER 500 mg tablet,extended release 24 hr RxNorm: 86 0975 TAKE 1 TABLET BY MOUTH EVERY DAY 09/21/2020 12/28/2020 Inactive meloxicam 15 mg tablet RxNorm: 739246 TAKE 1 TABLET BY MOUTH EV IVANIA DAY 08/24/2020 08/24/2020 Inactive allopurinol 100 mg tablet RxNorm: 375878 TAKE 2 TABLETS BY MOUT H EVERY DAY 08/24/2020 11/07/2020 Inactive atorvastatin 10 mg tablet RxNorm: 481965 1/2 Tablet(s) Oral MWF 11/07/2020 Inactive metformin ER 500 mg tablet,extended release 24 hr RxNorm: 86 0975 TAKE 1 TABLET BY MOUTH EVERY DAY 06/23/2020 09/20/2020 Inactive allopurinol 100 mg tablet RxNorm: 804959 TAKE 2 TABLETS BY MOUT H EVERY DAY 04/24/2020 07/22/2020 Inactive meloxicam 15 mg tablet RxNorm: 528979 TAKE 1 TABLET BY MOUTH EV IVANIA DAY 04/24/2020 07/22/2020 Inactive metformin ER 500 mg tablet,extended release 24 hr RxNorm: 86 0975 TAKE 1 TABLET BY MOUTH EVERY DAY 03/23/2020 06/20/2020 Inactive allopurinol 100 mg tablet RxNorm: 156364 TAKE 2 TABLETS BY MOUT H EVERY DAY 02/16/2020 04/23/2020 Inactive allopurinol 100 mg tablet RxNorm: 962668 TAKE 2 TABLETS BY MOUT H EVERY DAY 01/16/2020 02/15/2020 Inactive metformin ER 500 mg tablet,extended release 24 hr RxNorm: 86 0975 TABLET(S) 1 TABLET(S) PO QD 12/16/2019 03/14/2020 Inactive Needs updated la bs before further refillsPatient requests 90 days supply allopurinol 100 mg tablet RxNorm: 569902 TAKE 2 TABLETS BY MOUT H EVERY DAY 12/16/2019 01/14/2020 Inactive meloxicam 15 mg tablet RxNorm: 585161 TAKE 1 TABLET BY MOUTH EV IVANIA DAY 12/16/2019 06/28/2020 Inactive meloxicam 15 mg tablet RxNorm: 854851 TAKE 1 TABLET BY MOUTH EV IVANIA DAY 11/04/2019 12/15/2019 Inactive allopurinol 100 mg tablet RxNorm: 479443 TAKE 2 TABLETS BY MOUT H EVERY DAY 09/09/2019 12/07/2019 Inactive metformin ER 500 mg tablet,extended release 24 hr RxNorm: 86 0975 TABLET(S) 1 TABLET(S) PO QD 09/09/2019 12/15/2019 Inactive Needs updated la bs before further refillsPatient requests 90 days supply meloxicam 15 mg tablet RxNorm: 623890 TAKE 1 TABLET BY MOUTH 08/01/2019 10/29/2019 Inactive allopurinol 100 mg tablet RxNorm: 637940 TAKE 2 TABLETS BY MOUT H EVERY DAY 08/01/2019 08/30/2019 Inactive meloxicam 15 mg tablet RxNorm: 967898 1 Tablet(s) PO QD 04/25/2019 Inactive allopurinol 100 mg tablet RxNorm: 725363 2 TABLET(S) PO QD 04/24/2007/22/2019 Inactive prednisone 20 mg tablet RxNorm: 851999 1 Tablet(s) PO B ID for 4 days then 1 po daily for 4 days 04/18/2019 08/18/2019 Inactive allopurinol 100 mg tablet RxNorm: 216936 2 TABLET(S) PO QD 03/28/2005/26/2019 Inactive Patient requests 90 days s upply metformin ER 500 mg tablet,extended release 24 hr RxNorm: 86 0975 TABLET(S) 1 TABLET(S) PO QD NEEDS UPDATED FASTING LABS 02/26/2019 09/08/2019 Inact vielka Needs updated labs before further refillsPatient requests 90 days supply allopurinol 100 mg tablet RxNorm: 614143 2 TABLET(S) PO QD 02/22/2003/27/2019 Inactive metformin [...] further refills allopurinol 100 mg tablet RxNorm: 863211 2 Tablet(s) PO QD 11/27/19 19 02/20/2019 Inactive metformin ER 500 mg tablet,extended release 24 hr RxNorm: 86 0975 1 TABLET(S) PO QD NEEDS UPDATED FASTING LABS 10/29/2018 11/25/2018 Inactive metformin ER 500 mg tablet,extended release 24 hr RxNorm: 86 0975 1 Tablet(s) PO QD Needs updated fasting labs 09/26/2018 10/25/2018 Inactive allopurinol 100 mg tablet RxNorm: 122618 2 TABLET(S) PO QD 08/22/19 19 11/19/2018 Inactive allopurinol 100 mg tablet RxNorm: 291297 2 TABLET(S) PO QD 05/23/20 18 08/20/2018 Inactive metformin ER 500 mg tablet,extended release 24 hr RxNorm: 86 0975 1 Tablet(s) PO QD 04/25/2018 07/23/2018 Inactive metformin ER 500 mg tablet,extended release 24 hr RxNorm: 86 0975 1 Tablet(s) PO QD 04/25/2018 04/24/2018 Inactive allopurinol 100 mg tablet RxNorm: 505963 2 Tablet(s) PO QD 04/20/20 18 05/19/2018 Inactive allopurinol 100 mg tablet RxNorm: 635192 2 Tablet(s) PO QD 04/02/20 18 04/16/2018 Inactive allopurinol 100 mg tablet RxNorm: 559264 2 Tablet(s) PO QD 03/08/20 18 2018 Inactive Mobic 15 mg tablet RxNorm: 416240 1 TABLET(S) PO QD 03/07/20182017 Inactive [SAVINGS FOR NON-COVERED DRUGS -- BIN:00 2816, PCN: ASPROD1, Group: XXXXX, ID# [id number], Questions: . THIS IS NOT INSURANCE.] allopurinol 100 mg tablet RxNorm: 075034 2 Tablet(s) PO QD 10/28/19 18 03/08/2018 Inactive allopurinol 100 mg tablet RxNorm: 273365 2 Tablet(s) PO QD 04/03/20 17 10/27/2017 Inactive Mobic 15 mg tablet RxNorm: 567688 1 Tablet(s) PO QD 03/01/20172017 Inactive [SAVINGS FOR NON-COVERED DRUGS -- BIN:00 3585, PCN: ASPROD1, Group: XXXXX, ID# [id number], Questions: . THIS IS NOT INSURANCE.] hydrochlorothiazide 12.5 mg capsule RxNorm: 713816 1 Capsule(s) PO QAM 09/28/2016 09/17/2017 Inactive allopurinol 100 mg tablet RxNorm: 322554 2 Tablet(s) PO QD 09/15/19 17 04/03/2017 Inactive allopurinol 100 mg tablet RxNorm: 316389 2 Tablet(s) PO QD 04/04/20 16 09/14/2016 Inactive allopurinol 100 mg tablet RxNorm: 462209 2 Tablet(s) PO QD 03/01/20 16 04/03/2016 Inactive Mobic 15 mg tablet RxNorm: 819949 1 Tablet(s) PO QD 03/01/20162016 Inactive [SAVINGS FOR NON-COVERED DRUGS -- BIN:00 3585, PCN: ASPROD1, Group: XXXXX, ID# [id number], Questions: . THIS IS NOT INSURANCE.] allopurinol 100 mg tablet RxNorm: 086895 2 Tablet(s) PO QD Needs routine appointment 02/17/2016 04/04/2016 Inactive allopurinol 100 mg tablet RxNorm: 854710 2 Tablet(s) PO QD Needs routine appointment 01/18/2016 02/17/2016 Inactive allopurinol 100 mg tablet RxNorm: 859929 2 Tablet(s) PO QD Needs routine appointment 11/16/2015 01/18/2016 Inactive Mobic 15 mg tablet RxNorm: 186171 1 TABLET(S) PO QD . 11/13/201502/11 Inactive [SAVINGS FOR NON-COVERED DRUGS -- BIN:00 3585, PCN: ASPROD1, Group: XXXXX, ID# [id number], Questions: . THIS IS NOT INSURANCE.] Mobic 15 mg tablet RxNorm: 659369 1 Tablet(s) PO QD . 08/17/201510/14 Inactive [SAVINGS FOR NON-COVERED DRUGS -- BIN:00 3585, PCN: ASPROD1, Group: XXXXX, ID# [id number], Questions: . THIS IS NOT INSURANCE.] allopurinol 300 mg tablet RxNorm: 723096 Tablet(s) 1 TA BLET(S) PO QD TAKE 1 BY MOUTH DAILY 05/04/2015 11/16/2015 Inactive Mobic 15 mg tablet RxNorm: 804232 1 Tablet(s) PO QD Ne eds seen for routine appointment . 01/26/2015 08/17/2015 Inactive [SAVINGS FOR NON -COVERED DRUGS -- BIN:391898, PCN: ASPROD1, Group: XXXXX, ID# [id number], Questions: . THIS IS NOT INSURANCE.] Mobic 15 mg tablet RxNorm: 753287 1 Tablet(s) PO QD Ne eds seen for routine appointment . 12/24/2014 01/26/2015 Inactive [SAVINGS FOR NON -COVERED DRUGS -- BIN:749654, PCN: ASPROD1, Group: XXXXX, ID# [id number], Questions: . THIS IS NOT INSURANCE.] Mobic 15 mg tablet RxNorm: 687249 1 Tablet(s) PO QD Ne eds seen for routine appointment . 11/21/2014 12/20/2014 Inactive allopurinol 300 mg tablet RxNorm: 008149 Tablet(s) 1 TA BLET(S) PO QD TAKE 1 BY MOUTH DAILY 10/28/2014 05/04/2015 Inactive Mobic 15 mg tablet RxNorm: 021499 1 TABLET(S) PO QD TA KE 1 TABLET BY MOUTH DAILY . 05/23/2014 08/20/2014 Inactive Mobic 15 mg tablet RxNorm: 920295 1 Tablet(s) PO QD TA KE 1 TABLET BY MOUTH DAILY . 05/22/2014 11/21/2014 Inactive allopurinol 300 mg tablet RxNorm: 131390 1 TABLET(S) PO QD TAKE 1 BY MOUTH DAILY 05/02/2014 10/28/2014 Inactive cyclobenzaprine 10 mg tablet RxNorm: 546530 1 Tablet(s) PO TID Take one half to one by mouth three times a day as needed for muscle pain 11/01/2013 Inactive allopurinol 300 mg tablet RxNorm: 270128 1 Tablet(s) PO QD Take 1 by mouth daily 11/01/2013 04/29/2014 Inactive Mobic 15 mg tablet RxNorm: 246846 1 Tablet(s) PO QD TA KE 1 TABLET BY MOUTH DAILY . 11/01/2013 04/29/2014 Inactive allopurinol 300 mg tablet RxNorm: 928623 1 Tablet(s) PO QD Needs appt--not seen since 201110/14/2013 10/31/2013 Inactive Mobic 15 mg tablet RxNorm: 313046 Tablet(s) PO TAKE 1 TABLET BY MOUTH DAILY Last refill until appt. is made to see 10/14/2013 10/31/2013 Inactive Mobic 15 mg tablet RxNorm: 077147 1 Tablet(s) PO QD Ne eds appt---not seen since 201109/10/2013 10/14/2013 Inactive allopurinol 300 mg tablet RxNorm: 368646 1 Tablet(s) PO QD Needs appt--not seen since 201109/10/2013 10/09/2013 Inactive Mobic 15 mg tablet RxNorm: 769846 1 Tablet(s) PO QD 03/04/20132013 Inactive allopurinol 300 mg tablet RxNorm: 035724 1 Tablet(s) PO QD 03/04/20 13 08/30/2013 Inactive allopurinol 300 mg tablet RxNorm: 128696 1 Tablet(s) PO QD 10/23/19 13 02/18/2013 Inactive allopurinol 300 mg tablet RxNorm: 382075 1 Tablet(s) PO QD 06/11/20 12 10/22/2012 Inactive Mobic 15 mg tablet RxNorm: 930707 1 Tablet(s) PO QD 05/30/20122012 Inactive Mobic 15 mg tablet RxNorm: 746133 1 Tablet(s) PO QD 05/30/20122012 Inactive allopurinol 300 mg tablet RxNorm: 470222 1 Tablet(s) PO QD 01/05/2005/03/2012 Inactive Mobic 15 mg tablet RxNorm: 795537 1 Tablet(s) PO QD 01/05/20122011 Inactive Mobic 15 mg Tab RxNorm: 400339 1 Tablet(s) PO QD 08/16/2011 01/05/2012 Inactive allopurinol 300 mg Tab RxNorm: 622987 1 Tablet(s) PO QD 08/16/2011 Inactive Daypro 600 mg Tab RxNorm: 316696 2 Tablet(s) PO QD 07/27/2011 012 Inactive allopurinol 100 mg Tab RxNorm: 213682 1 Tablet(s) PO QD 07/27/2011 Inactive Flexeril 10 mg Tab RxNorm: 264727 1 Tablet(s) PO TID 12/13/201012/19 Inactive aspirin 81 mg tablet RxNorm: 798621 1 Tablet(s) PO QD 02/13/201909/2018 Inactive meloxicam 15 mg tablet RxNorm: 266646 1 Tablet(s) PO QD 04/25/2019 Inactive Fish Oil 360 mg-1,200 mg capsule,delayed release RxNorm: 1 Capsule(s) PO QD 07/27/2021 07/26/2021 Inactive allopurinol 100 mg tablet RxNorm: 505451 2 Tablet(s) PO QD 11/16/19 16 11/15/2015 Inactive Medication Administered No Medication Administered data Immunizations No Immunization data Results No Results data Procedures Procedure Codes Date INFLUENZA ASSAY W/OPTIC CPT-4: 42910 09/15/2016 Vital Signs Date Vital 07/27/2021 Blood Pressure 1: 132/68 Code: 8480-6 BMI: 25.5 Code: 61201-9 Heart Rate 1: 100 bpm Height: 5'10" Code: 8302-2 Respiratory Rate: 17 bpm SpO2: 97% Temperature: 36.2 (C) / 97.1 (F) Weight: 178 lbs Code: 01247-0 03/08/2021 Blood Pressure 1: 126/76 Code: 8480-6 BMI: 24.7 Code: 17268-0 Heart Rate 1: 76 bpm Height: 5'10" Code: 8302-2 Respiratory Rate: 20 bpm SpO2: 98% Temperature: 36.6 (C) / 97.9 (F) Weight: 172 lbs Code: 60907-9 06/29/2020 Blood Pressure 1: 136/78 Code: 8480-6 Heart Rate 1: 80 bpm Respiratory Rate: 16 bpm SpO2: 97% Temperature: 36.7 (C) / 98.1 (F) We ight: 170 lbs Code: 84801-8 08/19/2019 Blood Pressure 1: 126/82 Code: 8480-6 BMI: 24.7 Code: 67528-4 Heart Rate 1: 68 bpm Height: 5'10" Code: 8302-2 Respiratory Rate: 16 bpm SpO2: 99% Temperature: 36.6 (C) / 97.9 (F) Weight: 172 lbs Code: 91782-9 04/18/2019 Blood Pressure 1: 124/78 Code: 8480-6 Heart Rate 1: 72 bpm Respiratory Rate: 18 bpm SpO2: 98% Temperature: 36.8 (C) / 98.2 (F) We ight: 175 lbs Code: 08303-7 02/13/2019 Blood Pressure 1: 122/70 Code: 8480-6 Heart Rate 1: 60 bpm Respiratory Rate: 20 bpm SpO2: 96% Temperature: 36.6 (C) / 97.8 (F) We ight: 178 lbs Code: 30474-6 04/23/2018 Blood Pressure 1: 116/78 Code: 8480-6 BMI: 25.3 Code: 43679-4 Heart Rate 1: 64 bpm Height: 5'10" Code: 8302-2 Respiratory Rate: 20 bpm SpO2: 98% Temperature: 36.9 (C) / 98.4 (F) Weight: 176 lbs Code: 96166-4 09/18/2017 Blood Pressure 1: 144/86 Code: 8480-6 BMI: 26.1 Code: 09765-2 Heart Rate 1: 92 bpm Height: 5'10" Code: 8302-2 Respiratory Rate: 20 bpm Temperat ure: 36.6 (C) / 97.8 (F) Weight: 182 lbs Code: 15386-9 09/28/2016 Blood Pressure 1: 136/86 Code: 8480-6 BMI: 25.1 Code: 26068-4 Heart Rate 1: 84 bpm Height: 5'10" Code: 8302-2 Respiratory Rate: 20 bpm SpO2: 97% Temperature: 36.9 (C) / 98.5 (F) Weight: 175 lbs Code: 16163-6 09/15/2016 Blood Pressure 1: 142/88 Code: 8480-6 BMI: 25.7 Code: 88682-8 Heart Rate 1: 104 bpm Height: 5'10" Code: 8302-2 Respiratory Rate: 20 bpm SpO2: 98% Temperature: 37.6 (C) / 99.7 (F) Weight: 179 lbs Code: 67536-8 03/01/2016 Blood Pressure 1: 118/78 Code: 8480-6 BMI: 25.4 Code: 63445-1 Heart Rate 1: 104 bpm Height: 5'10" Code: 8302-2 Respiratory Rate: 22 bpm SpO2: 98% Temperature: 36.1 (C) / 96.9 (F) Weight: 177 lbs Code: 77307-4 12/30/2014 Blood Pressure 1: 128/78 Code: 8480-6 BMI: 25.0 Code: 19492-8 Heart Rate 1: 84 bpm Height: 5'10" Code: 8302-2 Respiratory Rate: 20 bpm Temperat ure: 36.7 (C) / 98.0 (F) Weight: 174 lbs Code: 93464-5 11/01/2013 Blood Pressure 1: 122/78 Code: 8480-6 BMI: 25.5 Code: 60096-5 Heart Rate 1: 80 bpm Height: 5'10" Code: 8302-2 Respiratory Rate: 20 bpm Temperat ure: 36.8 (C) / 98.2 (F) Weight: 178 lbs Code: 33370-2 08/16/2011 Blood Pressure 1: 122/78 Code: 8480-6 BMI: 24.0 Code: 12848-1 Heart Rate 1: 76 bpm Height: 5'10" Code: 8302-2 Respiratory Rate: 20 bpm Temperat ure: 36.9 (C) / 98.4 (F) Weight: 167 lbs Code: 92953-9 05/02/2011 Blood Pressure 1: 128/72 Code: 8480-6 Heart Rate 1: 58 bpm Weight: 164 lbs Code: 04660-4 12/13/2010 Blood Pressure 1: 122/64 Code: 8480-6 Te mperature: 36.6 (C) / 97.8 (F) Weight: 165 lbs Code: 59939-7 Functional Status No Functional Status data Reason [...] pain Encounters Encounter Performer Location Codes Date (20752) OFFICE/OUTPATIENT VISIT EST Diagnosis: Mixed hyperlipidemia[ICD10: E78.2] Diagnosis: 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 inflammatory arthritis and tophaceous disease[ICD10: E79.0] Diagnosis: Hyperglycemia, unspecified[ICD10: R73.9] Diagnosis: Hypertension[ICD10: I10] Radha FITCH [facility] CPT-4: 56331 07/27/2021 ([id number]) PREV VISIT EST AGE 40-64 Diagnosis: Encounter for general adult medical examination without abnormal findings[ICD10: Z00.00] Diagnosis: Hyperglycemia, unspecified[ICD10: R73.9] Diagnosis: Gout, unspecified[ICD10: M10.9] Diagnosis: Mixed hyperlipidemia[ICD10: E78.2] Diagnosis: Right knee pain[ICD10: M25.561] Radha ALAN DO [facility] CPT-4: 48951 03/08/2021 ([id number]) OFFICE/OUTPATIENT VISIT EST Diagnosis: Hyperglycemia, unspecified[ICD10: R73.9] Diagnosis: Mixed hyperlipidemia[ICD10: E78.2] Diagnosis: Penis disorder[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] Radha ALAN DO [facility] CPT-4: 75934 06/29/2020 ([id number]) OFFICE/OUTPATIENT VISIT EST Diagnosis: Hyperglycemia, unspecified[ICD10: R73.9] Diagnosis: Mixed hyperlipidemia[ICD10: E78.2] Radha Alan [facility] CPT-4: 16352 12/26/2019 ([id number]) PREV VISIT EST AGE 40-64 Diagnosis: Encounter for general adult medical examination without abnormal findings[ICD10: Z00.00] Diagnosis: Gout, unspecified[ICD10: M10.9] Diagnosis: Hyperglycemia, unspecified[ICD10: R73.9] Radha ALAN [facility] CPT-4: 48349 08/19/2019 ([id number]) OFFICE/OUTPATIENT VISIT EST Diagnosis: Localized swelling, mass and lump, trunk[ICD10: R22.2] Radha ALAN [facility] CPT-4: 00596 04/18/2019 ([id number]) OFFICE/OUTPATIENT VISIT EST Diagnosis: 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 inflammatory arthritis and tophaceous disease[ICD10: E79.0] Diagnosis: Hyperglycemia, unspecified[ICD10: R73.9] Diagnosis: Family history of ischemic heart disease and other diseases of the circulatory system[ICD10: Z82.49] Radha Berger [facility] CPT-4: 35623 02/13/2019 ([id number]) OFFICE/OUTPATIENT VISIT EST Diagnosis: Gout, unspecified[ICD10: M10.9] Diagnosis: Encounter for therapeutic drug level monitoring[ICD10: Z51.81] Trinity ALAN [facility] CPT-4: 80900 04/23/2018 ([id number]) OFFICE/OUTPATIENT VISIT EST Diagnosis: Hemorrhage of anus and rectum[ICD10: K62.5] Radha ALAN DO [facility] CPT-4: 48438 09/18/2017 ([id number]) OFFICE/OUTPATIENT VISIT EST Diagnosis: Localized edema[ICD10: R60.0] Diagnosis: Gout, unspecified[ICD10: M10.9] Radha HerreraAneesh DAYANNA ALEJANDRO [facility] CPT-4: 54845 09/28/2016 ([id number]) OFFICE/OUTPATIENT VISIT EST Diagnosis: Fever, unspecified[ICD10: R50.9] Diagnosis: Myalgia[ICD10: M79.1] Diagnosis: Viral infection, unspecified[ICD10: B34.9] Thuy LOVELLLINE SharonAneesh DAYNANA ALEJANDRO [facility] CPT-4: 90467 09/15/2016 ([id number]) PREV VISIT EST AGE 40-64 Diagnosis: Encounter for general adult medical examination without abnormal findings[ICD10: Z00.00] Diagnosis: Gout, unspecified[ICD10: M10.9] Thuy LOVELLLINE SharonAneesh DAYANNA [facility] CPT-4: 61726 03/01/2016 ([id number]) PREV VISIT EST AGE 40-64 Diagnosis: ROUTINE MEDICAL EXAM[ICD9: V70.0] Diagnosis: Arthralgia[ICD9: 719.40] Diagnosis: Hyperuricemia[ICD9: 790.6] Radha Dayanna HerreraAneesh [facility] CPT-4: 94463 12/30/2014 ([id number]) PREV VISIT EST AGE 40-64 Diagnosis: ROUTINE MEDICAL EXAM[ICD9: V70.0] Diagnosis: Arthralgia[ICD9: 719.40] Diagnosis: Hyperuricemia[ICD9: 790.6] Lorna OR[place]O SharonAneesh [facility] CPT-4: 91379 11/01/2013 OFFICE/OUTPATIENT VISIT EST Diagnosis: ARTHRALGIA-MULTIPLE SITES[ICD9: 719.49] Diagnosis: Hyperuricemia[ICD9: 790.6] Diagnosis: GASTROENTERITIS[ICD9: 558.9] Radha Dayanna LOVELLLINE SharonAneesh DAYANNA [facility] CPT-4: 54465 08/16/2011 OFFICE/OUTPATIENT VISIT EST Diagnosis: JOINT PAIN-PELVIS[ICD9: 719.45] Diagnosis: Leg pain[ICD9: 729.5] Diagnosis: ARTHRALGIA-MULTIPLE SITES[ICD9: 719.49] Radha FLORESALEX [facility] CPT-4: 61206 05/02/2011 ([id number]) OFFICE/OUTPATIENT VISIT EST Radha GONZALEZ SAAD [facility] CPT-4: 87259 12/13/2010 Plan of Care Planned Activity Notes [...] E79.0 07/27/2021 Visit Diagnosis Plan: Encounter for [facility] adult medical examination without abnormal findings [...] : R73.9 03/08/2021 Appointment: Radha Alan WPtel: [facility] [place] Annual Well Visit 03/08/2021 Appointment: Radha Alan WPtel: [facility] [place] RESCHEDULED 02/22/2021 Visit Diagnosis Plan: Mixed [...] : R73.9 06/29/2020 Appointment: Radha Alan WPtel: [address] [place], [place] [phone] [place] will bring new insurance to [facility] monday FOLLOW U P 06/29/2020 Care Plan: Referral Order SNOMED-CT : [id number] Pending 06/29/2020 Visit Diagnosis Plan: Hyperglycemia, unspecified Discu ssion: Lab discussed Accuchecks daily Continue current meds Check CMP and HbA1C in 3mos then fwup ICD-9 : 790.29 ICD-10 : R73.9 12/26/2019 Visit Diagnosis Plan: Mixed hyperlipidemia Discussion: Mediterranean diet Combination of cardio and weight bearing exercise ICD-9 : 272.2 ICD-10 : E78.2 12/26/2019 Appointment: Radha Alan WPtel: [address] [place], [place] [phone] [place] TELEMEDICINE 12/26/2019 Visit Diagnosis Plan: Hyperglycemia, [...] : Z00.00 08/19/2019 Appointment: Radha Alan WPtel: [address] [place] [address] Annual Well Visit 08/19/2019 Visit Diagnosis Plan: Localized swelling, mass and lum p, trunk Discussion: Suspect vs lymph node Supportive care--prednisone and see if goes down Notify if rash, redness, fever, etc develop Consider US if persists ICD-9 : 786.6 ICD-10 : R22.2 04/18/2019 Appointment: Radha Alan WPtel: [address] [place] [address] ACUTE ILLNESS 04/18/2019 Patient Education: prednisone- [employer] Coupon [phone] [email or web address]/resources/[email or web address] Completed 04/18/2019 Visit Diagnosis Plan: Family history [...] : E79.0 02/13/2019 Appointment: Radha Alan WPtel: [address] [place], [place] [phone] [place] FOLLOW UP 02/13/2019 Appointment: Trinity Cochran [address] [place] [address] CANCELED 02/04/2019 Care Plan: COMPREHEN METABOLIC PANEL SWAPNA NC : 23107-1 Pending 01/25/2019 Care Plan: COMPLETE CBC W/AUTO DIFF WBC LOINC : 28127-1 Pending 01/25/2019 Care Plan: A1C HPLC LOINC : 23549-6 Pending 01/25/2019 Care Plan: ASSAY OF BLOOD/URIC ACID Pendi ng 01/25/2019 Visit Diagnosis Plan: Encounter for therapeutic drug l evel monitoring Discussion: fasting blood work ordered to be completed at [facility] today. discussed wth patient to dc meloxicam and to use prn to reduce the risk of gi bleeds since taking baby asa. patient verbalized understanding. ICD-9 : V58.83 ICD-10 : Z51.81 04/23/2018 Visit Diagnosis Plan: Gout, unspecified Discussion: wi ll have updated blood work. order written out to be completed at [facility] today. has minimal gout attacks but can feel the "soreness" when he misses a dose. ICD-9 : 274.9 ICD-10 : M10.9 04/23/2018 Appointment: Trinity Cochran [address] [place], [place] [phone] [place] MEDICATION REVIEW 04/23/2018 Patient Education: Patient Medication Summary Completed 04/23/2018 Visit Diagnosis Plan: Hemorrhage of anus and rectum Di scussion: Referral to Dr. Meyers for colonoscopy Notify if worsening symptoms--right now has just been with morning BM--bright red, painless on stool and toilet paper ICD-9 : 569.3 ICD-10 : K62.5 09/18/2017 Appointment: Radha Alan WPtel: [address] [place], [place] [phone] [place] ACUTE ILLNESS 09/18/2017 Patient Education: Patient Medication Summary Completed 09/18/2017 Appointment: Radha Alan WPtel: [address] [place], [place] [phone] [place] 3/2 lm`sl 3/3 lm `sl 3/6 canceled~sl CANCELED 10/17/2016 Visit Diagnosis Plan: Localized edema Discussion: Comp ression socks HCTZ low dose Diet: Low Sodium Follow Up: 3 weeks ICD-9 : 782.3 ICD-10 : R60.0 09/28/2016 Visit Diagnosis Plan: Gout, unspecified Discussion: Ch ad[place] CMP, uric acid now ICD-9 : 274.9 ICD-10 : M10.9 09/28/2016 Appointment: Radha Alan WPtel: [address] [place] [address] 09/27 confirmed`sl ACUTE ILLNESS 09/28/2016 Patient Education: Patient Medication Summary Completed 09/28/2016 Visit Diagnosis Plan: Fever, unspecified Discussion: F marcio - negative Exam unremarkable Likely viral illness Supportive care reviewed Follow up PRN ICD-9 : 780.60 ICD-10 : R50.9 09/15/2016 Appointment: Thuy Lauren [address] [place] [address] ACUTE ILLNESS 09/15/2016 Patient Education: Patient Medication [...] for wellness visit 03/01/2016 Appointment: Thuy Lauren [address] [place] [address] Annual Well Visit 03/01/2016 Patient Education: Patient Medication Summary Completed 03/01/2016 Visit Plan: Check fasting lab Low purine diet and check uric acid as well as DARREN, RA, ASO, B12 12/30/2014 Appointment: Radha Alan WPtel: [address] [place] [address] left vm 12/29... left vm 12/30 Annual Well Visit 0 12/30/2014 Patient Education: Patient Medication Summary Completed 12/30/2014 Appointment: Lorna Choudhary WPtel: [address] [place] [address] [place] FOLLOW UP 11/01/2013 Patient Education: Patient Medication Summary Completed 11/01/2013 Visit Plan: Increase allopurinol to 300m g po daily Change Daypro to Mobic 15mg po daily Add daily fish oil 1gm Add Vitamin D3 1000mg daily 08/16/2011 Appointment: Radha Alan WPtel: [address] [place] [address] [place] FOLLOW UP 08/16/2011 Patient Education: Patient Medication Summary Completed 08/16/2011 Appointment: Radha Alan WPtel: [address] [place] [address] [place] FOLLOW UP 08/09/2011 Appointment: Radha Alan WPtel: [address] [place] [address] FOLLOW UP 08/04/2011 Visit Plan: Check uric acid, Chem 7, HbA 1C, TSH, Free T4 Fwup pending above results 05/02/2011 Appointment: Radha Alan WPtel: [address] [place] [address] ACUTE ILLNESS 05/02/2011 Patient Education: Patient Medication Summary Completed 05/02/2011 Visit Plan: will do fasting labs: Sed ra te, Lipids, CBC, CMP, DARREN, RA factor. (Mag lab) Pt. denies injury but states pain has begun to progress. Trial of Flexeril. Discussed that he may use Ibuprofen as well. 12/13/2010 Appointment: Jyoti Guajardo WPtel: [address] [place] [address] ACUTE ILLNESS 12/13/2010 Patient Education: Patient Medication Summary Completed 12/13/2010 Referral: Chace Teague WPtel: [facility] [place] [address] [place] Referral Appointment Requested Referral: Ben Barbour WPtel: [address] [id number] [place] Referral Initiated Instructions Comment Date . [...] Lipid s, CBC, CMP, DARREN, RA factor. ([facility] lab) Pt. denies injury but states pain [...]
--- OUTSIDE RECORDS SUMMARY | 2021-08-25 13:49 | XMS REPORT | CCD ---
Author Author Daniel Alan D.O. Organization [facility] ALAN [facility] Address [address] [place] [address] Phone Care Team Providers Care Switchboard Manager Name Role Phone Radha Alan D.O., PP Unavailable CCM Unavailable Summary Purpose Interface Exchange Insurance Providers Payer name Policy type / Coverage type Covered constitution party ID Effective Begin Date Effective End Date [facility] Commercial Insurance [id number] Unkno wn Family History Family History data not found Social History Social History Element Codes Description Effective Dates Marital status Unknown 08/16/[address]: [id number] Has never smoked or chewed tobacco 08/16/2011 [...] Fill Instructions allopurinol 100 mg tablet RxNorm: 878213 TAKE 2 TABLETS BY MOUT H EVERY DAY 07/15/2021 10/12/2021 Active metformin ER 500 mg tablet,extended release 24 hr RxNorm: 86 0975 Take 1 Tablet(s) Oral QD 07/15/2021 10/12/2021 Active meloxicam 15 mg tablet RxNorm: 951156 TAKE 1 TABLET BY MOUTH EV IVANIA DAY 07/06/2021 08/04/2021 Active meloxicam 15 mg tablet RxNorm: 411581 TAKE 1 TABLET BY MOUTH EV IVANIA DAY 06/02/202106/0206/02/2021 Inactive atorvastatin 10 mg tablet RxNorm: 521339 TAKE 1/2 TABLE T BY MOUTH ON Monday AND Monday04/21/2021 07/19/2021 Active metformin ER 500 mg tablet,extended release 24 hr RxNorm: 86 0975 Take 1 Tablet(s) Oral QD 04/21/2021 04/21/2021 Inactive allopurinol 100 mg tablet RxNorm: 846857 TAKE 2 TABLETS BY MOUT H EVERY DAY 04/21/2021 04/21/2021 Inactive atorvastatin 10 mg tablet RxNorm: 938752 TAKE 1/2 TABLE T BY MOUTH ON Monday AND Monday03/29/2021 03/29/2021 Inactive meloxicam 15 mg tablet RxNorm: 385357 TAKE 1 TABLET BY MOUTH EV IVANIA03/22/2021 04/20/2021 Inactive meloxicam 15 mg tablet RxNorm: 977094 TAKE 1 TABLET BY MOUTH EV IVANIA 02/22/2021 02/22/2021 Inactive allopurinol 100 mg tablet RxNorm: 047376 TAKE 2 TABLETS BY MOUT H EVERY DAY 01/21/2021 01/21/2021 Inactive meloxicam 15 mg tablet RxNorm: 925392 TAKE 1 TABLET BY MOUTH EV IVANIA 01/21/2021 01/21/2021 Inactive metformin ER 500 mg tablet,extended release 24 hr RxNorm: 86 0975 Take 1 Tablet(s) Oral QD 01/21/2021 01/21/2021 Inactive metformin ER 500 mg tablet,extended release 24 hr RxNorm: 86 0975 1 Tablet(s) Oral QD 12/29/2020 12/29/2020 Inactive Due for fasting labs/follow up before 90 day supply allopurinol 100 mg tablet RxNorm: 212067 TAKE 2 TABLETS BY MOUT H EVERY DAY 11/08/2020 11/08/2020 Inactive atorvastatin 10 mg tablet RxNorm: 498639 TAKE 1/2 TABLE T BY MOUTH ON Monday AND Monday11/08/2020 11/08/2020 Inactive metformin ER 500 mg tablet,extended release 24 hr RxNorm: 86 0975 TAKE 1 TABLET BY MOUTH EVERY DAY 09/21/2020 12/28/2020 Inactive meloxicam 15 mg tablet RxNorm: 340746 TAKE 1 TABLET BY MOUTH EV IVANIA DAY 08/24/2020 08/24/2020 Inactive allopurinol 100 mg tablet RxNorm: 19720822 TAKE 2 TABLETS BY MOUT H EVERY DAY 08/24/2020 11/07/2020 Inactive atorvastatin 10 mg tablet RxNorm: 784445 1/2 Tablet(s) Oral MWF 11/07/2020 Inactive metformin ER 500 mg tablet,extended release 24 hr RxNorm: 86 0975 TAKE 1 TABLET BY MOUTH EVERY DAY 06/23/2020 09/20/2020 Inactive allopurinol 100 mg tablet RxNorm: 920026 TAKE 2 TABLETS BY MOUT H EVERY DAY 04/24/2020 07/22/2020 Inactive meloxicam 15 mg tablet RxNorm: 099279 TAKE 1 TABLET BY MOUTH EV IVANIA DAY 04/24/2020 07/22/2020 Inactive metformin ER 500 mg tablet,extended release 24 hr RxNorm: 86 0975 TAKE 1 TABLET BY MOUTH EVERY DAY 03/23/2020 06/20/2020 Inactive allopurinol 100 mg tablet RxNorm: 330012 TAKE 2 TABLETS BY MOUT H EVERY DAY 02/16/2020 04/23/2020 Inactive allopurinol 100 mg tablet RxNorm: 697291 TAKE 2 TABLETS BY MOUT H EVERY DAY 01/16/2020 02/15/2020 Inactive metformin ER 500 mg tablet,extended release 24 hr RxNorm: 86 0975 TABLET(S) 1 TABLET(S) PO QD 12/16/2019 03/14/2020 Inactive Needs updated la bs before further refillsPatient requests 90 days supply allopurinol 100 mg tablet RxNorm: 328890 TAKE 2 TABLETS BY MOUT H EVERY DAY 12/16/2019 01/14/2020 Inactive meloxicam 15 mg tablet RxNorm: 967364 TAKE 1 TABLET BY MOUTH EV IVANIA DAY 12/16/2019 06/28/2020 Inactive meloxicam 15 mg tablet RxNorm: 773584 TAKE 1 TABLET BY MOUTH EV IVANIA DAY 11/04/2019 12/15/2019 Inactive allopurinol 100 mg tablet RxNorm: 553910 TAKE 2 TABLETS BY MOUT H EVERY DAY 09/09/2019 12/07/2019 Inactive metformin ER 500 mg tablet,extended release 24 hr RxNorm: 86 0975 TABLET(S) 1 TABLET(S) PO QD 09/09/2019 12/15/2019 Inactive Needs updated la bs before further refillsPatient requests 90 days supply meloxicam 15 mg tablet RxNorm: 527590 TAKE 1 TABLET BY MOUTH EV IVANIA DAY 08/01/2019 10/29/2019 Inactive allopurinol 100 mg tablet RxNorm: 642909 TAKE 2 TABLETS BY MOUT H EVERY DAY 08/01/2019 08/30/2019 Inactive meloxicam 15 mg tablet RxNorm: 999367 1 Tablet(s) PO QD 04/25/2019 Inactive allopurinol 100 mg tablet RxNorm: 122734 2 TABLET(S) PO QD 04/24/2007/22/2019 Inactive prednisone 20 mg tablet RxNorm: 695008 1 Tablet(s) PO B ID for 4 days then 1 po daily for 4 days 04/18/2019 08/18/2019 Inactive allopurinol 100 mg tablet RxNorm: 798314 2 TABLET(S) PO QD 03/28/2005/26/2019 Inactive Patient requests 90 days s upply metformin ER 500 mg tablet,extended release 24 hr RxNorm: 86 0975 TABLET(S) 1 TABLET(S) PO QD NEEDS UPDATED FASTING LABS 02/26/2019 09/08/2019 Inact vielka Needs updated labs before further refillsPatient requests 90 days supply allopurinol 100 mg tablet RxNorm: 653231 2 TABLET(S) PO QD 02/22/2003/27/2019 Inactive metformin [...] further refills allopurinol 100 mg tablet RxNorm: 557698 2 Tablet(s) PO QD 11/27/19 19 02/20/2019 Inactive metformin ER 500 mg tablet,extended release 24 hr RxNorm: 86 0975 1 TABLET(S) PO QD NEEDS UPDATED FASTING LABS 10/29/2018 11/25/2018 Inactive metformin ER 500 mg tablet,extended release 24 hr RxNorm: 86 0975 1 Tablet(s) PO QD Needs updated fasting labs 09/26/2018 10/25/2018 Inactive allopurinol 100 mg tablet RxNorm: 731249 2 TABLET(S) PO QD 08/22/19 19 11/19/2018 Inactive allopurinol 100 mg tablet RxNorm: 991074 2 TABLET(S) PO QD 05/23/20 18 08/20/2018 Inactive metformin ER 500 mg tablet,extended release 24 hr RxNorm: 86 0975 1 Tablet(s) PO QD 04/25/2018 07/23/2018 Inactive metformin ER 500 mg tablet,extended release 24 hr RxNorm: 86 0975 1 Tablet(s) PO QD 04/25/2018 04/24/2018 Inactive allopurinol 100 mg tablet RxNorm: 191344 2 Tablet(s) PO QD 04/20/20 18 05/19/2018 Inactive allopurinol 100 mg tablet RxNorm: 050481 2 Tablet(s) PO QD 04/02/20 18 04/16/2018 Inactive allopurinol 100 mg tablet RxNorm: 528474 2 Tablet(s) PO QD 03/08/20 18 2018 Inactive Mobic 15 mg tablet RxNorm: 981655 1 TABLET(S) PO QD 03/07/20182017 Inactive [SAVINGS FOR NON-COVERED DRUGS -- BIN:00 1995, PCN: ASPROD1, Group: XXXXX, ID# [id number], Questions: . THIS IS NOT INSURANCE.] allopurinol 100 mg tablet RxNorm: 073787 2 Tablet(s) PO QD 10/28/19 18 03/08/2018 Inactive allopurinol 100 mg tablet RxNorm: 238402 2 Tablet(s) PO QD 04/03/20 17 10/27/2017 Inactive Mobic 15 mg tablet RxNorm: 935768 1 Tablet(s) PO QD 03/01/20172017 Inactive [SAVINGS FOR NON-COVERED DRUGS -- BIN:00 3585, PCN: ASPROD1, Group: XXXXX, ID# XXXXXXX, Questions: . THIS IS NOT INSURANCE.] hydrochlorothiazide 12.5 mg capsule RxNorm: 663571 1 Capsule(s) PO QAM 09/28/2016 09/17/2017 Inactive allopurinol 100 mg tablet RxNorm: 118314 2 Tablet(s) PO QD 09/15/19 17 04/03/2017 Inactive allopurinol 100 mg tablet RxNorm: 549365 2 Tablet(s) PO QD 04/04/20 16 09/14/2016 Inactive allopurinol 100 mg tablet RxNorm: 812122 2 Tablet(s) PO QD 03/01/20 16 04/03/2016 Inactive Mobic 15 mg tablet RxNorm: 965718 1 Tablet(s) PO QD 03/01/20162016 Inactive [SAVINGS FOR NON-COVERED DRUGS -- BIN:00 3585, PCN: ASPROD1, Group: XXXXX, ID# [id number], Questions: . THIS IS NOT INSURANCE.] allopurinol 100 mg tablet RxNorm: 628318 2 Tablet(s) PO QD Needs routine appointment 02/17/2016 04/04/2016 Inactive allopurinol 100 mg tablet RxNorm: 644670 2 Tablet(s) PO QD Needs routine appointment 01/18/2016 02/17/2016 Inactive allopurinol 100 mg tablet RxNorm: 834887 2 Tablet(s) PO QD Needs routine appointment 11/16/2015 01/18/2016 Inactive Mobic 15 mg tablet RxNorm: 346119 1 TABLET(S) PO QD . 11/13/201502/11 Inactive [SAVINGS FOR NON-COVERED DRUGS -- BIN:00 3585, PCN: ASPROD1, Group: XXXXX, ID# [id number], Questions: . THIS IS NOT INSURANCE.] Mobic 15 mg tablet RxNorm: 360136 1 Tablet(s) PO QD . 08/17/201510/14 Inactive [SAVINGS FOR NON-COVERED DRUGS -- BIN:00 3585, PCN: ASPROD1, Group: XXXXX, ID# [id number], Questions: . THIS IS NOT INSURANCE.] allopurinol 300 mg tablet RxNorm: 447844 Tablet(s) 1 TA BLET(S) PO QD TAKE 1 BY MOUTH DAILY 05/04/2015 11/16/2015 Inactive Mobic 15 mg tablet RxNorm: 394625 1 Tablet(s) PO QD Ne eds seen for routine appointment . 01/26/2015 08/17/2015 Inactive [SAVINGS FOR NON -COVERED DRUGS -- BIN:197976, PCN: ASPROD1, Group: XXXXX, ID# [id number], Questions: . THIS IS NOT INSURANCE.] Mobic 15 mg tablet RxNorm: 006521 1 Tablet(s) PO QD Ne eds seen for routine appointment . 12/24/2014 01/26/2015 Inactive [SAVINGS FOR NON -COVERED DRUGS -- BIN:664373, PCN: ASPROD1, Group: XXXXX, ID# XXXXXXX, Questions: . THIS IS NOT INSURANCE.] Mobic 15 mg tablet RxNorm: 512241 1 Tablet(s) PO QD Ne eds seen for routine appointment . 11/21/2014 12/20/2014 Inactive allopurinol 300 mg tablet RxNorm: 889848 Tablet(s) 1 TA BLET(S) PO QD TAKE 1 BY MOUTH DAILY 10/28/2014 05/04/2015 Inactive Mobic 15 mg tablet RxNorm: 831230 1 TABLET(S) PO QD TA KE 1 TABLET BY MOUTH DAILY . 05/23/2014 08/20/2014 Inactive Mobic 15 mg tablet RxNorm: 731458 1 Tablet(s) PO QD TA KE 1 TABLET BY MOUTH DAILY . 05/22/2014 11/21/2014 Inactive allopurinol 300 mg tablet RxNorm: 382427 1 TABLET(S) PO QD TAKE 1 BY MOUTH DAILY 05/02/2014 10/28/2014 Inactive cyclobenzaprine 10 mg tablet RxNorm: 449482 1 Tablet(s) PO TID Take one half to one by mouth three times a day as needed for muscle pain 11/01/2013 Inactive allopurinol 300 mg tablet RxNorm: 412022 1 Tablet(s) PO QD Take 1 by mouth daily 11/01/2013 04/29/2014 Inactive Mobic 15 mg tablet RxNorm: 907790 1 Tablet(s) PO QD TA KE 1 TABLET BY MOUTH DAILY . 11/01/2013 04/29/2014 Inactive allopurinol 300 mg tablet RxNorm: 403579 1 Tablet(s) PO QD Needs appt--not seen since 201110/14/2013 10/31/2013 Inactive Mobic 15 mg tablet RxNorm: 307364 Tablet(s) PO TAKE 1 TABLET BY MOUTH DAILY Last refill until appt. is made to see 10/14/2013 10/31/2013 Inactive Mobic 15 mg tablet RxNorm: 800032 1 Tablet(s) PO QD Ne eds appt---not seen since 201109/10/2013 10/14/2013 Inactive allopurinol 300 mg tablet RxNorm: 829630 1 Tablet(s) PO QD Needs appt--not seen since 201109/10/2013 10/09/2013 Inactive Mobic 15 mg tablet RxNorm: 891977 1 Tablet(s) PO QD 03/04/20132013 Inactive allopurinol 300 mg tablet RxNorm: 771917 1 Tablet(s) PO QD 03/04/20 13 08/30/2013 Inactive allopurinol 300 mg tablet RxNorm: 173576 1 Tablet(s) PO QD 10/23/19 13 02/18/2013 Inactive allopurinol 300 mg tablet RxNorm: 215653 1 Tablet(s) PO QD 06/11/20 12 10/22/2012 Inactive Mobic 15 mg tablet RxNorm: 663921 1 Tablet(s) PO QD 05/30/20122012 Inactive Mobic 15 mg tablet RxNorm: 048447 1 Tablet(s) PO QD 05/30/20122012 Inactive allopurinol 300 mg tablet RxNorm: 818729 1 Tablet(s) PO QD 05/05/03/2012 Inactive Mobic 15 mg tablet RxNorm: 262119 1 Tablet(s) PO QD 01/05/20122011 Inactive Mobic 15 mg Tab RxNorm: 865743 1 Tablet(s) PO QD 08/16/2011 01/05/2012 Inactive allopurinol 300 mg Tab RxNorm: 067753 1 Tablet(s) PO QD 08/16/2011 Inactive Daypro 600 mg Tab RxNorm: 537147 2 Tablet(s) PO QD 07/27/2011 012 Inactive allopurinol 100 mg Tab RxNorm: 960729 1 Tablet(s) PO QD 07/27/2011 Inactive Flexeril 10 mg Tab RxNorm: 235138 1 Tablet(s) PO TID 12/13/201012/19 Inactive Fish Oil 360 mg-1,200 mg capsule,delayed release RxNorm: 1 Capsule(s) PO QD 11/01/2013 Active aspirin 81 mg tablet RxNorm: 739563 1 Tablet(s) PO QD 02/13/201909/2018 Inactive meloxicam 15 mg tablet RxNorm: 433968 1 Tablet(s) PO QD 04/25/2019 Inactive allopurinol 100 mg tablet RxNorm: 126348 2 Tablet(s) PO QD 11/16/19 16 11/15/2015 Inactive Medication Administered No Medication Administered data Immunizations No Immunization data Results No Results data Procedures Procedure Codes Date INFLUENZA ASSAY W/OPTIC CPT-4: 69279 09/15/2016 Vital Signs Date Vital 03/08/2021 Blood Pressure 1: 126/76 Code: 8480-6 BMI: 24.7 Code: 28314-5 Heart Rate 1: 76 bpm Height: 5'10" Code: 8302-2 Respiratory Rate: 20 bpm SpO2: 98% Temperature: 36.6 (C) / 97.9 (F) Weight: 172 lbs Code: 54964-6 06/29/2020 Blood Pressure 1: 136/78 Code: 8480-6 Heart Rate 1: 80 bpm Respiratory Rate: 16 bpm SpO2: 97% Temperature: 36.7 (C) / 98.1 (F) We ight: 170 lbs Code: 89416-2 08/19/2019 Blood Pressure 1: 126/82 Code: 8480-6 BMI: 24.7 Code: 87159-6 Heart Rate 1: 68 bpm Height: 5'10" Code: 8302-2 Respiratory Rate: 16 bpm SpO2: 99% Temperature: 36.6 (C) / 97.9 (F) Weight: 172 lbs Code: 94624-8 04/18/2019 Blood Pressure 1: 124/78 Code: 8480-6 Heart Rate 1: 72 bpm Respiratory Rate: 18 bpm SpO2: 98% Temperature: 36.8 (C) / 98.2 (F) We ight: 175 lbs Code: 79285-6 02/13/2019 Blood Pressure 1: 122/70 Code: 8480-6 Heart Rate 1: 60 bpm Respiratory Rate: 20 bpm SpO2: 96% Temperature: 36.6 (C) / 97.8 (F) We ight: 178 lbs Code: 80564-4 04/23/2018 Blood Pressure 1: 116/78 Code: 8480-6 BMI: 25.3 Code: 17013-5 Heart Rate 1: 64 bpm Height: 5'10" Code: 8302-2 Respiratory Rate: 20 bpm SpO2: 98% Temperature: 36.9 (C) / 98.4 (F) Weight: 176 lbs Code: 37477-7 09/18/2017 Blood Pressure 1: 144/86 Code: 8480-6 BMI: 26.1 Code: 88424-2 Heart Rate 1: 92 bpm Height: 5'10" Code: 8302-2 Respiratory Rate: 20 bpm Temperat ure: 36.6 (C) / 97.8 (F) Weight: 182 lbs Code: 56125-8 09/28/2016 Blood Pressure 1: 136/86 Code: 8480-6 BMI: 25.1 Code: 59370-4 Heart Rate 1: 84 bpm Height: 5'10" Code: 8302-2 Respiratory Rate: 20 bpm SpO2: 97% Temperature: 36.9 (C) / 98.5 (F) Weight: 175 lbs Code: 49539-5 09/15/2016 Blood Pressure 1: 142/88 Code: 8480-6 BMI: 25.7 Code: 07581-8 Heart Rate 1: 104 bpm Height: 5'10" Code: 8302-2 Respiratory Rate: 20 bpm SpO2: 98% Temperature: 37.6 (C) / 99.7 (F) Weight: 179 lbs Code: 88090-6 03/01/2016 Blood Pressure 1: 118/78 Code: 8480-6 BMI: 25.4 Code: 92970-7 Heart Rate 1: 104 bpm Height: 5'10" Code: 8302-2 Respiratory Rate: 22 bpm SpO2: 98% Temperature: 36.1 (C) / 96.9 (F) Weight: 177 lbs Code: 40528-7 12/30/2014 Blood Pressure 1: 128/78 Code: 8480-6 BMI: 25.0 Code: 40382-7 Heart Rate 1: 84 bpm Height: 5'10" Code: 8302-2 Respiratory Rate: 20 bpm Temperat ure: 36.7 (C) / 98.0 (F) Weight: 174 lbs Code: 44157-2 11/01/2013 Blood Pressure 1: 122/78 Code: 8480-6 BMI: 25.5 Code: 85212-4 Heart Rate 1: 80 bpm Height: 5'10" Code: 8302-2 Respiratory Rate: 20 bpm Temperat ure: 36.8 (C) / 98.2 (F) Weight: 178 lbs Code: 93301-1 08/16/2011 Blood Pressure 1: 122/78 Code: 8480-6 BMI: 24.0 Code: 82960-1 Heart Rate 1: 76 bpm Height: 5'10" Code: 8302-2 Respiratory Rate: 20 bpm Temperat ure: 36.9 (C) / 98.4 (F) Weight: 167 lbs Code: 83771-9 05/02/2011 Blood Pressure 1: 128/72 Code: 8480-6 Heart Rate 1: 58 bpm Weight: 164 lbs Code: 16413-7 12/13/2010 Blood Pressure 1: 122/64 Code: 8480-6 Te mperature: 36.6 (C) / 97.8 (F) Weight: 165 lbs Code: 50762-6 Functional Status No Functional Status data Reason [...] pain Encounters Encounter Performer Location Codes Date ([id number]) PREV VISIT EST AGE 40-64 Diagnosis: Encounter for general adult medical examination without abnormal findings[ICD10: Z00.00] Diagnosis: Hyperglycemia, unspecified[ICD10: R73.9] Diagnosis: Gout, unspecified[ICD10: M10.9] Diagnosis: Mixed hyperlipidemia[ICD10: E78.2] Diagnosis: Right knee pain[ICD10: M25.561] Radha [place]O [employer] CPT-4: 00423 03/08/2021 ([id number]) OFFICE/OUTPATIENT VISIT EST Diagnosis: Hyperglycemia, unspecified[ICD10: R73.9] Diagnosis: Mixed hyperlipidemia[ICD10: E78.2] Diagnosis: Penis disorder[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] Radha [place] [employer] CPT-4: 03105 06/29/2020 ([id number]) OFFICE/OUTPATIENT VISIT EST Diagnosis: Hyperglycemia, unspecified[ICD10: R73.9] Diagnosis: Mixed hyperlipidemia[ICD10: E78.2] Radha Alan [facility] CPT-4: 28902 12/26/2019 ([id number]) PREV VISIT EST AGE 40-64 Diagnosis: Encounter for general adult medical examination without abnormal findings[ICD10: Z00.00] Diagnosis: Gout, unspecified[ICD10: M10.9] Diagnosis: Hyperglycemia, unspecified[ICD10: R73.9] Radha [place]O [employer] CPT-4: 55749 08/19/2019 ([id number]) OFFICE/OUTPATIENT VISIT EST Diagnosis: Localized swelling, mass and lump, trunk[ICD10: R22.2] Radha ALAN [facility] CPT-4: 90223 04/18/2019 ([id number]) OFFICE/OUTPATIENT VISIT EST Diagnosis: 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 inflammatory arthritis and tophaceous disease[ICD10: E79.0] Diagnosis: Hyperglycemia, unspecified[ICD10: R73.9] Diagnosis: Family history of ischemic heart disease and other diseases of the circulatory system[ICD10: Z82.49] Radha Berger [facility] CPT-4: 76798 02/13/2019 ([id number]) OFFICE/OUTPATIENT VISIT EST Diagnosis: Gout, unspecified[ICD10: M10.9] Diagnosis: Encounter for therapeutic drug level monitoring[ICD10: Z51.81] Trinity ALAN [facility] CPT-4: 27134 04/23/2018 ([id number]) OFFICE/OUTPATIENT VISIT EST Diagnosis: Hemorrhage of anus and rectum[ICD10: K62.5] Radha ALAN [facility] CPT-4: 37135 09/18/2017 ([id number]) OFFICE/OUTPATIENT VISIT EST Diagnosis: Localized edema[ICD10: R60.0] Diagnosis: Gout, unspecified[ICD10: M10.9] Radha ALAN [facility] CPT-4: 11512 09/28/2016 ([id number]) OFFICE/OUTPATIENT VISIT EST Diagnosis: Fever, unspecified[ICD10: R50.9] Diagnosis: Myalgia[ICD10: M79.1] Diagnosis: Viral infection, unspecified[ICD10: B34.9] Thuy Lauren RADHA Fiona ALAN [facility] CPT-4: 19130 09/15/2016 ([id number]) PREV VISIT EST AGE 40-64 Diagnosis: Encounter for general adult medical examination without abnormal findings[ICD10: Z00.00] Diagnosis: Gout, unspecified[ICD10: M10.9] Thuy [place] [employer] CPT-4: 71146 03/01/2016 ([id number]) PREV VISIT EST AGE 40-64 Diagnosis: ROUTINE MEDICAL EXAM[ICD9: V70.0] Diagnosis: Arthralgia[ICD9: 719.40] Diagnosis: Hyperuricemia[ICD9: 790.6] Radha [facility] CPT-4: 11367 12/30/2014 ([id number]) PREV VISIT EST AGE 40-64 Diagnosis: ROUTINE MEDICAL EXAM[ICD9: V70.0] Diagnosis: Arthralgia[ICD9: 719.40] Diagnosis: Hyperuricemia[ICD9: 790.6] Lorna Choudhary RADHA PALM [employer] CPT-4: 74610 11/01/2013 OFFICE/OUTPATIENT VISIT EST Diagnosis: ARTHRALGIA-MULTIPLE SITES[ICD9: 719.49] Diagnosis: Hyperuricemia[ICD9: 790.6] Diagnosis: GASTROENTERITIS[ICD9: 558.9] Radha ROSAR[facility] CPT-4: 95104 08/16/2011 OFFICE/OUTPATIENT VISIT EST Diagnosis: JOINT PAIN-PELVIS[ICD9: 719.45] Diagnosis: Leg pain[ICD9: 729.5] Diagnosis: ARTHRALGIA-MULTIPLE SITES[ICD9: 719.49] Radha Maximusspencersally FLORESALEX SharonAneesh [employer] CPT-4: 87896 05/02/2011 ([id number]) OFFICE/OUTPATIENT VISIT EST Radha Maximusspencersally CARLOS NASH Fiona [facility] CPT-4: 70001 12/13/2010 Plan of Care Planned Activity Notes Codes Status Date Visit Diagnosis Plan: Encounter for [facility] adult medical examination without abnormal findings [...] : R73.9 03/08/2021 Appointment: Radha Alan WPtel: [address] [place] [address] Annual Well Visit 03/08/2021 Appointment: Radha Alan WPtel: [address] [place] [address] US RESCHEDULED 02/22/2021 Visit Diagnosis Plan: Mixed [...] : R73.9 06/29/2020 Appointment: Radha Alan WPtel: [address] [place], [place] [phone] US will bring new insurance to [facility] monday FOLLOW U P 06/29/2020 Care Plan: Referral Order SNOMED-CT : [id number] Pending 06/29/2020 Visit Diagnosis Plan: Hyperglycemia, unspecified Discu ssion: Lab discussed Accuchecks daily Continue current meds Check CMP and HbA1C in 3mos then fwup ICD-9 : 790.29 ICD-10 : R73.9 12/26/2019 Visit Diagnosis Plan: Mixed hyperlipidemia Discussion: Mediterranean diet Combination of cardio and weight bearing exercise ICD-9 : 272.2 ICD-10 : E78.2 12/26/2019 Appointment: Radha Alan WPtel: [address] [place] [address] US TELEMEDICINE 12/26/2019 Visit Diagnosis Plan: Hyperglycemia, unspecified Discu ssion: Check HbA1C ICD-9 : 790.29 ICD-10 : R73.9 08/19/2019 Visit Diagnosis Plan: Gout, unspecified Discussion: Ch adina uric acid ICD-9 : 274.9 ICD-10 : M10.9 08/19/2019 Visit Diagnosis Plan: Encounter for [facility] adult medical examination without abnormal findings Discussion: Mediterranean diet Combinati on of cardio and weight bearing exercise Update labs ICD-9 : V70.9 ICD-10 : Z00.00 08/19/2019 Appointment: Radha Alan WPtel: [address] [place] [address] Annual Well Visit 08/19/2019 Visit Diagnosis Plan: Localized swelling, mass and lum p, trunk Discussion: Suspect vs lymph node Supportive care--prednisone and see if goes down Notify if rash, redness, fever, etc develop Consider US if persists ICD-9 : 786.6 ICD-10 : R22.2 04/18/2019 Appointment: Radha Alan WPtel: [address] [place] [address] ACUTE ILLNESS 04/18/2019 Patient Education: prednisone- [employer] Coupon [id number] [email or web address] Completed 04/18/2019 Visit Diagnosis Plan: Family history [...] : E79.0 02/13/2019 Appointment: Radha Alan WPtel: [phone] [phone] FOLLOW UP 02/13/2019 Appointment: Trinity Cochran [address] [facility] CANCELED 02/04/2019 Care Plan: COMPREHEN METABOLIC PANEL SWAPNA NC : 10317-9 Pending 01/25/2019 Care Plan: COMPLETE CBC W/AUTO DIFF WBC LOINC : 78612-0 Pending 01/25/2019 Care Plan: A1C HPLC LOINC : 51753-7 Pending 01/25/2019 Care Plan: ASSAY OF BLOOD/URIC ACID Pendi 01/25/2019 Visit Diagnosis Plan: Encounter for therapeutic drug l evel monitoring Discussion: fasting blood work ordered to be completed at [facility] today. discussed [facility] patient to dc meloxicam and to use prn to reduce the risk of gi bleeds since taking baby asa. patient verbalized understanding. ICD-9 : V58.83 ICD-10 : Z51.81 04/23/2018 Visit Diagnosis Plan: Gout, unspecified Discussion: wi ll have updated blood work. order written out to be completed at [facility] today. has minimal gout attacks but can feel the "soreness" when he misses a dose. ICD-9 : 274.9 ICD-10 : M10.9 04/23/2018 Appointment: Trinity Cochran [address] [phone] MEDICATION REVIEW 04/23/2018 Patient Education: Patient Medication Summary Completed 04/23/2018 Visit Diagnosis Plan: Hemorrhage of anus and rectum Di scussion: Referral to Dr. Meyers for colonoscopy Notify if worsening symptoms--right now has just been with morning BM--bright red, painless on stool and toilet paper ICD-9 : 569.3 ICD-10 : K62.5 09/18/2017 Appointment: Radha Alan WPtel: [phone] [facility] ACUTE ILLNESS 09/18/2017 Patient Education: Patient Medication Summary Completed 09/18/2017 Appointment: Radha Alan WPtel: [address] [place], [place] [phone] [place] 3/2 lm`sl 3/3 lm `sl 3/6 canceled~sl CANCELED 10/17/2016 Visit Diagnosis Plan: Localized edema Discussion: Comp ression socks HCTZ low dose Diet: Low Sodium Follow Up: 3 weeks ICD-9 : 782.3 ICD-10 : R60.0 09/28/2016 Visit Diagnosis Plan: Gout, unspecified Discussion: Ch adina CMP, uric acid now ICD-9 : 274.9 ICD-10 : M10.9 09/28/2016 Appointment: Radha Alan WPtel: [address] [place], [place] [phone] 09/27 confirmed`sl ACUTE ILLNESS 09/28/2016 Patient Education: Patient Medication Summary Completed 09/28/2016 Visit Diagnosis Plan: Fever, unspecified Discussion: F marcio - negative Exam unremarkable Likely viral illness Supportive care reviewed Follow up PRN ICD-9 : 780.60 ICD-10 : R50.9 09/15/2016 Appointment: Thuy Lauren [address] [facility] ACUTE ILLNESS 09/15/2016 Patient Education: [...] for wellness visit 03/01/2016 Appointment: Thuy Lauren [address] [facility] Annual Well Visit 03/01/2016 Patient Education: Patient Medication Summary Completed 03/01/2016 Visit Plan: Check fasting lab Low purine diet and check uric acid as well as DARREN, RA, ASO, B12 12/30/2014 Appointment: Radha Alan WPtel: [address] [place] [address] left vm 12/29... left vm 12/30 Annual Well Visit 0 12/30/2014 Patient Education: Patient Medication Summary Completed 12/30/2014 Appointment: Lorna Choudhary WPtel: [address] [place] [address] FOLLOW UP 11/01/2013 Patient Education: Patient Medication Summary Completed 11/01/2013 Visit Plan: Increase allopurinol to 300m g po daily Change Daypro to Mobic 15mg po daily Add daily fish oil 1gm Add Vitamin D3 1000mg daily 08/16/2011 Appointment: Radha Alan WPtel: [address] [place] [address] FOLLOW UP 08/16/2011 Patient Education: Patient Medication Summary Completed 08/16/2011 Appointment: Radha Alan WPtel: [address] [place] [address] FOLLOW UP 08/09/2011 Appointment: Radha Alan WPtel: [address] [place] [address] FOLLOW UP 08/04/2011 Visit Plan: Check uric acid, Chem 7, HbA 1C, TSH, Free T4 Fwup pending above results 05/02/2011 Appointment: Radha Alan WPtel: [address] [place] [address] ACUTE ILLNESS 05/02/2011 Patient Education: Patient Medication Summary Completed 05/02/2011 Visit Plan: will do fasting labs: Sed ra te, Lipids, CBC, CMP, DARREN, RA factor. (Mag lab) Pt. denies injury but states pain has begun to progress. Trial of Flexeril. Discussed that he may use Ibuprofen as well. 12/13/2010 Appointment: Jyoti Guajardo WPtel: [address] [place] [address] ACUTE ILLNESS 12/13/2010 Patient Education: Patient Medication Summary Completed 12/13/2010 Referral: Chace Teague WPtel: [phone] [id number] [place] Referral Appointment Requested Referral: Ben Barbour WPtel: [phone] [id number] [place] Referral Initiated Instructions Comment . Order req for fasting labs to [facility] - CBC, CMP, Lipids, PSA, TSH, [...]
--- OUTSIDE RECORDS SUMMARY | 2021-08-25 13:49 | XMS REPORT | CCD ---
Author Author Daniel Alan D.O. Organization [facility] ALAN [facility] Address [address] [place] [address] Phone Care Team Providers Care Quarryman Name Role Phone Radha Alan D.O., PP Unavailable CCM Unavailable Summary Purpose Interface Exchange Insurance Providers Payer name Policy type / Coverage type Covered libertarian ID Effective Begin Date Effective End Date Blue Cross Blue Shield Blue Cross/Blue Shield [id number] 2021 Unknown Family History Family History data not found Social History Social History Element Codes Description Effective Dates Marital status Unknown 08/16/[address]: [id number] Has never smoked or chewed tobacco 08/16/2011 [...] Fill Instructions allopurinol 100 mg tablet RxNorm: 110106 TAKE 2 TABLETS BY MOUT H EVERY DAY 07/15/2021 10/12/2021 Active metformin ER 500 mg tablet,extended release 24 hr RxNorm: 86 0975 Take 1 Tablet(s) Oral QD 07/15/2021 10/12/2021 Active meloxicam 15 mg tablet RxNorm: 291956 TAKE 1 TABLET BY MOUTH EV IVANIA DAY 07/06/2021 08/04/2021 Active meloxicam 15 mg tablet RxNorm: 074059 TAKE 1 TABLET BY MOUTH EV IVANIA DAY 06/02/2021 06/02/2021 Inactive atorvastatin 10 mg tablet RxNorm: 964378 TAKE 1/2 TABLE T BY MOUTH ON Monday AND Monday04/21/2021 07/19/2021 Inactive metformin ER 500 mg tablet,extended release 24 hr RxNorm: 86 0975 Take 1 Tablet(s) Oral QD 04/21/2021 04/21/2021 Inactive allopurinol 100 mg tablet RxNorm: 965468 TAKE 2 TABLETS BY MOUT H EVERY DAY 04/21/2021 04/21/2021 Inactive atorvastatin 10 mg tablet RxNorm: 392748 TAKE 1/2 TABLE T BY MOUTH ON Monday AND Monday03/29/2021 03/29/2021 Inactive meloxicam 15 mg tablet RxNorm: 823921 TAKE 1 TABLET BY MOUTH EV IVANIA DAY 03/22/2021 04/20/2021 Inactive meloxicam 15 mg tablet RxNorm: 867208 TAKE 1 TABLET BY MOUTH EV IVANIA DAY 02/22/2021 02/22/2021 Inactive allopurinol 100 mg tablet RxNorm: 759741 TAKE 2 TABLETS BY MOUT H EVERY DAY 01/21/2021 01/21/2021 Inactive meloxicam 15 mg tablet RxNorm: 088028 TAKE 1 TABLET BY MOUTH EV IVANIA DAY 01/21/2021 01/21/2021 Inactive metformin ER 500 mg tablet,extended release 24 hr RxNorm: 86 0975 Take 1 Tablet(s) Oral QD 01/21/2021 01/21/2021 Inactive metformin ER 500 mg tablet,extended release 24 hr RxNorm: 86 0975 1 Tablet(s) Oral QD 12/29/2020 12/29/2020 Inactive Due for fasting labs/follow up before 90 day supply allopurinol 100 mg tablet RxNorm: 414316 TAKE 2 TABLETS BY MOUT H EVERY DAY 11/08/2020 11/08/2020 Inactive atorvastatin 10 mg tablet RxNorm: 345335 TAKE 1/2 TABLE T BY MOUTH ON Monday AND Monday11/08/2020 11/08/2020 Inactive metformin ER 500 mg tablet,extended release 24 hr RxNorm: 86 0975 TAKE 1 TABLET BY MOUTH EVERY DAY 09/21/2020 12/28/2020 Inactive meloxicam 15 mg tablet RxNorm: 103053 TAKE 1 TABLET BY MOUTH EV IVANIA DAY 08/24/2020 08/24/2020 Inactive allopurinol 100 mg tablet RxNorm: 941327 TAKE 2 TABLETS BY MOUT H EVERY DAY 08/24/2020 11/07/2020 Inactive atorvastatin 10 mg tablet RxNorm: 479057 1/2 Tablet(s) Oral MWF 11/07/2020 Inactive metformin ER 500 mg tablet,extended release 24 hr RxNorm: 86 0975 TAKE 1 TABLET BY MOUTH EVERY DAY 06/23/2020 09/20/2020 Inactive allopurinol 100 mg tablet RxNorm: 920623 TAKE 2 TABLETS BY MOUT H EVERY DAY 04/24/2020 07/22/2020 Inactive meloxicam 15 mg tablet RxNorm: 906140 TAKE 1 TABLET BY MOUTH EV IVANIA DAY 04/24/2020 07/22/2020 Inactive metformin ER 500 mg tablet,extended release 24 hr RxNorm: 86 0975 TAKE 1 TABLET BY MOUTH EVERY DAY 03/23/2020 06/20/2020 Inactive allopurinol 100 mg tablet RxNorm: 774611 TAKE 2 TABLETS BY MOUT H EVERY DAY 02/16/2020 04/23/2020 Inactive allopurinol 100 mg tablet RxNorm: 254564 TAKE 2 TABLETS BY MOUT H EVERY DAY 01/16/2020 02/15/2020 Inactive metformin ER 500 mg tablet,extended release 24 hr RxNorm: 86 0975 TABLET(S) 1 TABLET(S) PO QD 12/16/2019 03/14/2020 Inactive Needs updated la bs before further refillsPatient requests 90 days supply allopurinol 100 mg tablet RxNorm: 346254 TAKE 2 TABLETS BY MOUT H EVERY DAY 12/16/2019 01/14/2020 Inactive meloxicam 15 mg tablet RxNorm: 330970 TAKE 1 TABLET BY MOUTH EV IVANIA DAY 12/16/2019 06/28/2020 Inactive meloxicam 15 mg tablet RxNorm: 951285 TAKE 1 TABLET BY MOUTH EV IVANIA DAY 11/04/2019 12/15/2019 Inactive allopurinol 100 mg tablet RxNorm: 187319 TAKE 2 TABLETS BY MOUT H EVERY DAY 09/09/2019 12/07/2019 Inactive metformin ER 500 mg tablet,extended release 24 hr RxNorm: 86 0975 TABLET(S) 1 TABLET(S) PO QD 09/09/2019 12/15/2019 Inactive Needs updated la bs before further refillsPatient requests 90 days supply meloxicam 15 mg tablet RxNorm: 501533 TAKE 1 TABLET BY MOUTH 08/01/2019 10/29/2019 Inactive allopurinol 100 mg tablet RxNorm: 053734 TAKE 2 TABLETS BY MOUT H EVERY DAY 08/01/2019 08/30/2019 Inactive meloxicam 15 mg tablet RxNorm: 455282 1 Tablet(s) PO QD 04/25/2019 Inactive allopurinol 100 mg tablet RxNorm: 405456 2 TABLET(S) PO QD 04/24/2007/22/2019 Inactive prednisone 20 mg tablet RxNorm: 126704 1 Tablet(s) PO B ID for 4 days then 1 po daily for 4 days 04/18/2019 08/18/2019 Inactive allopurinol 100 mg tablet RxNorm: 765009 2 TABLET(S) PO QD 03/28/2005/26/2019 Inactive Patient requests 90 days s upply metformin ER 500 mg tablet,extended release 24 hr RxNorm: 86 0975 TABLET(S) 1 TABLET(S) PO QD NEEDS UPDATED FASTING LABS 02/26/2019 09/08/2019 Inact vielka Needs updated labs before further refillsPatient requests 90 days supply allopurinol 100 mg tablet RxNorm: 073848 2 TABLET(S) PO QD 02/22/2003/27/2019 Inactive metformin [...] further refills allopurinol 100 mg tablet RxNorm: 935536 2 Tablet(s) PO QD 11/27/19 19 02/20/2019 Inactive metformin ER 500 mg tablet,extended release 24 hr RxNorm: 86 0975 1 TABLET(S) PO QD NEEDS UPDATED FASTING LABS 10/29/2018 11/25/2018 Inactive metformin ER 500 mg tablet,extended release 24 hr RxNorm: 86 0975 1 Tablet(s) PO QD Needs updated fasting labs 09/26/2018 10/25/2018 Inactive allopurinol 100 mg tablet RxNorm: 341914 2 TABLET(S) PO QD 08/22/19 19 11/19/2018 Inactive allopurinol 100 mg tablet RxNorm: 022307 2 TABLET(S) PO QD 05/23/20 18 08/20/2018 Inactive metformin ER 500 mg tablet,extended release 24 hr RxNorm: 86 0975 1 Tablet(s) PO QD 04/25/2018 07/23/2018 Inactive metformin ER 500 mg tablet,extended release 24 hr RxNorm: 86 0975 1 Tablet(s) PO QD 04/25/2018 04/24/2018 Inactive allopurinol 100 mg tablet RxNorm: 800931 2 Tablet(s) PO QD 04/20/20 18 05/19/2018 Inactive allopurinol 100 mg tablet RxNorm: 034964 2 Tablet(s) PO QD 04/02/20 18 04/16/2018 Inactive allopurinol 100 mg tablet RxNorm: 667647 2 Tablet(s) PO QD 03/08/20 18 2018 Inactive Mobic 15 mg tablet RxNorm: 967406 1 TABLET(S) PO QD 03/07/20182017 Inactive [SAVINGS FOR NON-COVERED DRUGS -- BIN:00 2325, PCN: ASPROD1, Group: XXXXX, ID# [id number], Questions: . THIS IS NOT INSURANCE.] allopurinol 100 mg tablet RxNorm: 898662 2 Tablet(s) PO QD 10/28/19 18 03/08/2018 Inactive allopurinol 100 mg tablet RxNorm: 787868 2 Tablet(s) PO QD 04/03/20 17 10/27/2017 Inactive Mobic 15 mg tablet RxNorm: 224450 1 Tablet(s) PO QD 03/01/20172017 Inactive [SAVINGS FOR NON-COVERED DRUGS -- BIN:00 3585, PCN: ASPROD1, Group: XXXXX, ID# [id number], Questions: . THIS IS NOT INSURANCE.] hydrochlorothiazide 12.5 mg capsule RxNorm: 715536 1 Capsule(s) PO QAM 09/28/2016 09/17/2017 Inactive allopurinol 100 mg tablet RxNorm: 902550 2 Tablet(s) PO QD 09/15/19 17 04/03/2017 Inactive allopurinol 100 mg tablet RxNorm: 735839 2 Tablet(s) PO QD 04/04/20 16 09/14/2016 Inactive allopurinol 100 mg tablet RxNorm: 733685 2 Tablet(s) PO QD 03/01/20 16 04/03/2016 Inactive Mobic 15 mg tablet RxNorm: 694497 1 Tablet(s) PO QD 03/01/20162016 Inactive [SAVINGS FOR NON-COVERED DRUGS -- BIN:00 3585, PCN: ASPROD1, Group: XXXXX, ID# [id number], Questions: . THIS IS NOT INSURANCE.] allopurinol 100 mg tablet RxNorm: 002600 2 Tablet(s) PO QD Needs routine appointment 02/17/2016 04/04/2016 Inactive allopurinol 100 mg tablet RxNorm: 434791 2 Tablet(s) PO QD Needs routine appointment 01/18/2016 02/17/2016 Inactive allopurinol 100 mg tablet RxNorm: 400196 2 Tablet(s) PO QD Needs routine appointment 11/16/2015 01/18/2016 Inactive Mobic 15 mg tablet RxNorm: 005931 1 TABLET(S) PO QD . 11/13/201502/11 Inactive [SAVINGS FOR NON-COVERED DRUGS -- BIN:00 3585, PCN: ASPROD1, Group: XXXXX, ID# [id number], Questions: . THIS IS NOT INSURANCE.] Mobic 15 mg tablet RxNorm: 592942 1 Tablet(s) PO QD . 08/17/201510/14 Inactive [SAVINGS FOR NON-COVERED DRUGS -- BIN:00 3585, PCN: ASPROD1, Group: XXXXX, ID# XXXXXXX, Questions: . THIS IS NOT INSURANCE.] allopurinol 300 mg tablet RxNorm: 892581 Tablet(s) 1 TA BLET(S) PO QD TAKE 1 BY MOUTH DAILY 05/04/2015 11/16/2015 Inactive Mobic 15 mg tablet RxNorm: 007329 1 Tablet(s) PO QD Ne eds seen for routine appointment . 01/26/2015 08/17/2015 Inactive [SAVINGS FOR NON -COVERED DRUGS -- BIN:924307, PCN: ASPROD1, Group: XXXXX, ID# [id number], Questions: . THIS IS NOT INSURANCE.] Mobic 15 mg tablet RxNorm: 530682 1 Tablet(s) PO QD Ne eds seen for routine appointment . 12/24/2014 01/26/2015 Inactive [SAVINGS FOR NON -COVERED DRUGS -- BIN:462903, PCN: ASPROD1, Group: XXXXX, ID# [id number], Questions: . THIS IS NOT INSURANCE.] Mobic 15 mg tablet RxNorm: 983324 1 Tablet(s) PO QD Ne eds seen for routine appointment . 11/21/2014 12/20/2014 Inactive allopurinol 300 mg tablet RxNorm: 236154 Tablet(s) 1 TA BLET(S) PO QD TAKE 1 BY MOUTH DAILY 10/28/2014 05/04/2015 Inactive Mobic 15 mg tablet RxNorm: 697629 1 TABLET(S) PO QD TA KE 1 TABLET BY MOUTH DAILY . 05/23/2014 08/20/2014 Inactive Mobic 15 mg tablet RxNorm: 682599 1 Tablet(s) PO QD TA KE 1 TABLET BY MOUTH DAILY . 05/22/2014 11/21/2014 Inactive allopurinol 300 mg tablet RxNorm: 987523 1 TABLET(S) PO QD TAKE 1 BY MOUTH DAILY 05/02/2014 10/28/2014 Inactive cyclobenzaprine 10 mg tablet RxNorm: 570642 1 Tablet(s) PO TID Take one half to one by mouth three times a day as needed for muscle pain 11/01/2013 Inactive allopurinol 300 mg tablet RxNorm: 685516 1 Tablet(s) PO QD Take 1 by mouth daily 11/01/2013 04/29/2014 Inactive Mobic 15 mg tablet RxNorm: 695439 1 Tablet(s) PO QD TA KE 1 TABLET BY MOUTH DAILY . 11/01/2013 04/29/2014 Inactive allopurinol 300 mg tablet RxNorm: 007419 1 Tablet(s) PO QD Needs appt--not seen since 201110/14/2013 10/31/2013 Inactive Mobic 15 mg tablet RxNorm: 593727 Tablet(s) PO TAKE 1 TABLET BY MOUTH DAILY Last refill until appt. is made to see 10/14/2013 10/31/2013 Inactive Mobic 15 mg tablet RxNorm: 509461 1 Tablet(s) PO QD Ne eds appt---not seen since 201109/10/2013 10/14/2013 Inactive allopurinol 300 mg tablet RxNorm: 377670 1 Tablet(s) PO QD Needs appt--not seen since 201109/10/2013 10/09/2013 Inactive Mobic 15 mg tablet RxNorm: 842341 1 Tablet(s) PO QD 03/04/20132013 Inactive allopurinol 300 mg tablet RxNorm: 548679 1 Tablet(s) PO QD 03/04/20 13 08/30/2013 Inactive allopurinol 300 mg tablet RxNorm: 969576 1 Tablet(s) PO QD 10/23/19 13 02/18/2013 Inactive allopurinol 300 mg tablet RxNorm: 334388 1 Tablet(s) PO QD 06/11/20 12 10/22/2012 Inactive Mobic 15 mg tablet RxNorm: 530826 1 Tablet(s) PO QD 05/30/20122012 Inactive Mobic 15 mg tablet RxNorm: 581581 1 Tablet(s) PO QD 05/30/20122012 Inactive allopurinol 300 mg tablet RxNorm: 832950 1 Tablet(s) PO QD 01/05/2005/03/2012 Inactive Mobic 15 mg tablet RxNorm: 471614 1 Tablet(s) PO QD 01/05/20122011 Inactive Mobic 15 mg Tab RxNorm: 271452 1 Tablet(s) PO QD 08/16/2011 01/05/2012 Inactive allopurinol 300 mg Tab RxNorm: 348006 1 Tablet(s) PO QD 08/16/2011 Inactive Daypro 600 mg Tab RxNorm: 748303 2 Tablet(s) PO QD 07/27/2011 012 Inactive allopurinol 100 mg Tab RxNorm: 933271 1 Tablet(s) PO QD 07/27/2011 Inactive Flexeril 10 mg Tab RxNorm: 889678 1 Tablet(s) PO TID 12/13/201012/19 Inactive aspirin 81 mg tablet RxNorm: 529846 1 Tablet(s) PO QD 02/13/201909/2018 Inactive meloxicam 15 mg tablet RxNorm: 688550 1 Tablet(s) PO QD 04/25/2019 Inactive Fish Oil 360 mg-1,200 mg capsule,delayed release RxNorm: 1 Capsule(s) PO QD 07/27/2021 07/26/2021 Inactive allopurinol 100 mg tablet RxNorm: 877919 2 Tablet(s) PO QD 11/16/19 16 11/15/2015 Inactive Medication Administered No Medication Administered data Immunizations No Immunization data Results No Results data Procedures Procedure Codes Date INFLUENZA ASSAY W/OPTIC CPT-4: 41499 09/15/2016 Vital Signs Date Vital 07/27/2021 Blood Pressure 1: 132/68 Code: 8480-6 BMI: 25.5 Code: 02262-1 Heart Rate 1: 100 bpm Height: 5'10" Code: 8302-2 Respiratory Rate: 17 bpm SpO2: 97% Temperature: 36.2 (C) / 97.1 (F) Weight: 178 lbs Code: 68631-5 03/08/2021 Blood Pressure 1: 126/76 Code: 8480-6 BMI: 24.7 Code: 29625-5 Heart Rate 1: 76 bpm Height: 5'10" Code: 8302-2 Respiratory Rate: 20 bpm SpO2: 98% Temperature: 36.6 (C) / 97.9 (F) Weight: 172 lbs Code: 90517-6 06/29/2020 Blood Pressure 1: 136/78 Code: 8480-6 Heart Rate 1: 80 bpm Respiratory Rate: 16 bpm SpO2: 97% Temperature: 36.7 (C) / 98.1 (F) We ight: 170 lbs Code: 27882-0 08/19/2019 Blood Pressure 1: 126/82 Code: 8480-6 BMI: 24.7 Code: 36816-3 Heart Rate 1: 68 bpm Height: 5'10" Code: 8302-2 Respiratory Rate: 16 bpm SpO2: 99% Temperature: 36.6 (C) / 97.9 (F) Weight: 172 lbs Code: 05357-8 04/18/2019 Blood Pressure 1: 124/78 Code: 8480-6 Heart Rate 1: 72 bpm Respiratory Rate: 18 bpm SpO2: 98% Temperature: 36.8 (C) / 98.2 (F) We ight: 175 lbs Code: 50644-1 02/13/2019 Blood Pressure 1: 122/70 Code: 8480-6 Heart Rate 1: 60 bpm Respiratory Rate: 20 bpm SpO2: 96% Temperature: 36.6 (C) / 97.8 (F) We ight: 178 lbs Code: 86062-4 04/23/2018 Blood Pressure 1: 116/78 Code: 8480-6 BMI: 25.3 Code: 31220-8 Heart Rate 1: 64 bpm Height: 5'10" Code: 8302-2 Respiratory Rate: 20 bpm SpO2: 98% Temperature: 36.9 (C) / 98.4 (F) Weight: 176 lbs Code: 48414-0 09/18/2017 Blood Pressure 1: 144/86 Code: 8480-6 BMI: 26.1 Code: 37539-0 Heart Rate 1: 92 bpm Height: 5'10" Code: 8302-2 Respiratory Rate: 20 bpm Temperat ure: 36.6 (C) / 97.8 (F) Weight: 182 lbs Code: 06105-1 09/28/2016 Blood Pressure 1: 136/86 Code: 8480-6 BMI: 25.1 Code: 36831-1 Heart Rate 1: 84 bpm Height: 5'10" Code: 8302-2 Respiratory Rate: 20 bpm SpO2: 97% Temperature: 36.9 (C) / 98.5 (F) Weight: 175 lbs Code: 52107-3 09/15/2016 Blood Pressure 1: 142/88 Code: 8480-6 BMI: 25.7 Code: 88846-4 Heart Rate 1: 104 bpm Height: 5'10" Code: 8302-2 Respiratory Rate: 20 bpm SpO2: 98% Temperature: 37.6 (C) / 99.7 (F) Weight: 179 lbs Code: 20647-7 03/01/2016 Blood Pressure 1: 118/78 Code: 8480-6 BMI: 25.4 Code: 95485-1 Heart Rate 1: 104 bpm Height: 5'10" Code: 8302-2 Respiratory Rate: 22 bpm SpO2: 98% Temperature: 36.1 (C) / 96.9 (F) Weight: 177 lbs Code: 64720-1 12/30/2014 Blood Pressure 1: 128/78 Code: 8480-6 BMI: 25.0 Code: 70743-5 Heart Rate 1: 84 bpm Height: 5'10" Code: 8302-2 Respiratory Rate: 20 bpm Temperat ure: 36.7 (C) / 98.0 (F) Weight: 174 lbs Code: 00895-0 11/01/2013 Blood Pressure 1: 122/78 Code: 8480-6 BMI: 25.5 Code: 61260-8 Heart Rate 1: 80 bpm Height: 5'10" Code: 8302-2 Respiratory Rate: 20 bpm Temperat ure: 36.8 (C) / 98.2 (F) Weight: 178 lbs Code: 05398-0 08/16/2011 Blood Pressure 1: 122/78 Code: 8480-6 BMI: 24.0 Code: 94575-2 Heart Rate 1: 76 bpm Height: 5'10" Code: 8302-2 Respiratory Rate: 20 bpm Temperat ure: 36.9 (C) / 98.4 (F) Weight: 167 lbs Code: 87138-6 05/02/2011 Blood Pressure 1: 128/72 Code: 8480-6 Heart Rate 1: 58 bpm Weight: 164 lbs Code: 32412-3 12/13/2010 Blood Pressure 1: 122/64 Code: 8480-6 Te mperature: 36.6 (C) / 97.8 (F) Weight: 165 lbs Code: 57727-3 Functional Status No Functional Status data Reason [...] pain Encounters Encounter Performer Location Codes Date ([id number]) OFFICE/OUTPATIENT VISIT EST Diagnosis: Mixed hyperlipidemia[ICD10: E78.2] Diagnosis: 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 inflammatory arthritis and tophaceous disease[ICD10: E79.0] Diagnosis: Hyperglycemia, unspecified[ICD10: R73.9] Diagnosis: Hypertension[ICD10: I10] Radha FITCH [facility] CPT-4: 78659 07/27/2021 ([id number]) PREV VISIT EST AGE 40-64 Diagnosis: Encounter for general adult medical examination without abnormal findings[ICD10: Z00.00] Diagnosis: Hyperglycemia, unspecified[ICD10: R73.9] Diagnosis: Gout, unspecified[ICD10: M10.9] Diagnosis: Mixed hyperlipidemia[ICD10: E78.2] Diagnosis: Right knee pain[ICD10: M25.561] Radha ALAN DO [facility] CPT-4: 68206 03/08/2021 ([id number]) OFFICE/OUTPATIENT VISIT EST Diagnosis: Hyperglycemia, unspecified[ICD10: R73.9] Diagnosis: Mixed hyperlipidemia[ICD10: E78.2] Diagnosis: Penis disorder[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] Radha ALAN DO [facility] CPT-4: 66810 06/29/2020 ([id number]) OFFICE/OUTPATIENT VISIT EST Diagnosis: Hyperglycemia, unspecified[ICD10: R73.9] Diagnosis: Mixed hyperlipidemia[ICD10: E78.2] Radha Alan [facility] CPT-4: 37999 12/26/2019 ([id number]) PREV VISIT EST AGE 40-64 Diagnosis: Encounter for general adult medical examination without abnormal findings[ICD10: Z00.00] Diagnosis: Gout, unspecified[ICD10: M10.9] Diagnosis: Hyperglycemia, unspecified[ICD10: R73.9] Radha ALAN [facility] CPT-4: 87114 08/19/2019 ([id number]) OFFICE/OUTPATIENT VISIT EST Diagnosis: Localized swelling, mass and lump, trunk[ICD10: R22.2] Radha ALAN [facility] CPT-4: 89272 04/18/2019 ([id number]) OFFICE/OUTPATIENT VISIT EST Diagnosis: 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 inflammatory arthritis and tophaceous disease[ICD10: E79.0] Diagnosis: Hyperglycemia, unspecified[ICD10: R73.9] Diagnosis: Family history of ischemic heart disease and other diseases of the circulatory system[ICD10: Z82.49] Radha Berger [facility] CPT-4: 64944 02/13/2019 ([id number]) OFFICE/OUTPATIENT VISIT EST Diagnosis: Gout, unspecified[ICD10: M10.9] Diagnosis: Encounter for therapeutic drug level monitoring[ICD10: Z51.81] Trinity ALAN [facility] CPT-4: 42193 04/23/2018 ([id number]) OFFICE/OUTPATIENT VISIT EST Diagnosis: Hemorrhage of anus and rectum[ICD10: K62.5] Radha ALAN DO [facility] CPT-4: 56557 09/18/2017 ([id number]) OFFICE/OUTPATIENT VISIT EST Diagnosis: Localized edema[ICD10: R60.0] Diagnosis: Gout, unspecified[ICD10: M10.9] Radha HerreraAneesh DAYANNA ALEJANDRO [facility] CPT-4: 59600 09/28/2016 ([id number]) OFFICE/OUTPATIENT VISIT EST Diagnosis: Fever, unspecified[ICD10: R50.9] Diagnosis: Myalgia[ICD10: M79.1] Diagnosis: Viral infection, unspecified[ICD10: B34.9] Thuy LOVELLLINE SharonAneesh DAYANNA ALEJANDRO [facility] CPT-4: 30243 09/15/2016 ([id number]) PREV VISIT EST AGE 40-64 Diagnosis: Encounter for general adult medical examination without abnormal findings[ICD10: Z00.00] Diagnosis: Gout, unspecified[ICD10: M10.9] Thuy LOVELLLINE SharonAneesh DAYANNA CPM [facility] CPT-4: 44620 03/01/2016 ([id number]) PREV VISIT EST AGE 40-64 Diagnosis: ROUTINE MEDICAL EXAM[ICD9: V70.0] Diagnosis: Arthralgia[ICD9: 719.40] Diagnosis: Hyperuricemia[ICD9: 790.6] Radha [facility]neesh [facility] CPT-[facility]: 55284 12/30/2014 ([id number]) PREV VISIT EST AGE 40-64 Diagnosis: ROUTINE MEDICAL EXAM[ICD9: V70.0] Diagnosis: Arthralgia[ICD9: 719.40] Diagnosis: Hyperuricemia[ICD9: 790.6] Lorna ORLANDO SharonAneesh [facility] CPT-4: 55890 11/01/2013 OFFICE/OUTPATIENT VISIT EST Diagnosis: ARTHRALGIA-MULTIPLE SITES[ICD9: 719.49] Diagnosis: Hyperuricemia[ICD9: 790.6] Diagnosis: GASTROENTERITIS[ICD9: 558.9] Radha Dayanna LOVELLLINE SharonAneesh DAYANNA CPM [facility] CPT-4: 04693 08/16/2011 OFFICE/OUTPATIENT VISIT EST Diagnosis: JOINT PAIN-PELVIS[ICD9: 719.45] Diagnosis: Leg pain[ICD9: 729.5] Diagnosis: ARTHRALGIA-MULTIPLE SITES[ICD9: 719.49] Radha FLORESALEX Jaimes [facility] CPT-4: 49226 05/02/2011 ([id number]) OFFICE/OUTPATIENT VISIT EST Radha GONZALEZ SAAD Ja[facility] CPT-4: 88746 12/13/2010 Plan of Care Planned Activity Notes [...] E79.0 07/27/2021 Visit Diagnosis Plan: Encounter for [facility] adult medical examination without abnormal [...] : R73.9 03/08/2021 Appointment: Radha Alan WPtel: [facility] [place] Annual Well Visit 03/08/2021 Appointment: Radha Alan WPtel: [facility] [place] RESCHEDULED 02/22/2021 Visit Diagnosis Plan: [...] R73.9 06/29/2020 Appointment: Radha Alan WPtel: [address] [place], [place] [phone] [place] will bring new insurance to [facility] monday FOLLOW U P 06/29/2020 Care Plan: Referral Order SNOMED-CT : 30 [id number] Pending 06/29/2020 Visit Diagnosis Plan: Hyperglycemia, unspecified Discu ssion: Lab discussed Accuchecks daily Continue current meds Check CMP and HbA1C in 3mos then fwup ICD-9 : 790.29 ICD-10 : R73.9 12/26/2019 Visit Diagnosis Plan: Mixed hyperlipidemia Discussion: Mediterranean diet Combination of cardio and weight bearing exercise ICD-9 : 272.2 ICD-10 : E78.2 12/26/2019 Appointment: Radha Alan WPtel: [address] [place], [place] [phone] [place] TELEMEDICINE 12/26/2019 Visit Diagnosis Plan: Hyperglycemia, [...] : Z00.00 08/19/2019 Appointment: Radha Alan WPtel: [address] [place] [address] Annual Well Visit 08/19/2019 Visit Diagnosis Plan: Localized swelling, mass and lum p, trunk Discussion: Suspect vs lymph node Supportive care--prednisone and see if goes down Notify if rash, redness, fever, etc develop Consider US if persists ICD-9 : 786.6 ICD-10 : R22.2 04/18/2019 Appointment: Radha Alan WPtel: [address] [place] [address] ACUTE ILLNESS 04/18/2019 Patient Education: prednisone- [employer] Coupon [phone] [email or web address] Completed 04/18/2019 Visit Diagnosis Plan: Family history [...] : E79.0 02/13/2019 Appointment: Radha Alan WPtel: [address] [place], [place] [phone] [place] FOLLOW UP 02/13/2019 Appointment: Trinity Cochran [address] [place] [address] CANCELED 02/04/2019 Care Plan: COMPREHEN METABOLIC PANEL SWAPNA [place] : 95276-5 Pending 01/25/2019 Care Plan: COMPLETE CBC W/AUTO DIFF WBC LOINC : 88925-9 Pending 01/25/2019 Care Plan: A1C HPLC LOINC : 06037-3 Pending 01/25/2019 Care Plan: ASSAY OF BLOOD/URIC ACID Pendi ng 01/25/2019 Visit Diagnosis Plan: Encounter for therapeutic drug l evel monitoring Discussion: fasting blood work ordered to be completed at [facility] today. discussed wth patient to dc meloxicam and to use prn to reduce the risk of gi bleeds since taking baby asa. patient verbalized understanding. ICD-9 : V58.83 ICD-10 : Z51.81 04/23/2018 Visit Diagnosis Plan: Gout, unspecified Discussion: wi ll have updated blood work. order written out to be completed at [facility] today. has minimal gout attacks but can feel the "soreness" when he misses a dose. ICD-9 : 274.9 ICD-10 : M10.9 04/23/2018 Appointment: Trinity Cochran [address] [place], [place] [phone] [place] MEDICATION REVIEW 04/23/2018 Patient Education: Patient Medication Summary Completed 04/23/2018 Visit Diagnosis Plan: Hemorrhage of anus and rectum Di scussion: Referral to Dr. Meyers for colonoscopy Notify if worsening symptoms--right now has just been with morning BM--bright red, painless on stool and toilet paper ICD-9 : 569.3 ICD-10 : K62.5 09/18/2017 Appointment: Radha Alan WPtel: [address] [place], [place] [phone] [place] ACUTE ILLNESS 09/18/2017 Patient Education: Patient Medication Summary Completed 09/18/2017 Appointment: Radha Alan WPtel: [address] [place], [place] [phone] [place] 3/2 lm`sl 3/3 lm `sl 3/6 canceled~sl CANCELED 10/17/2016 Visit Diagnosis Plan: Localized edema Discussion: Comp ression socks HCTZ low dose Diet: Low Sodium Follow Up: 3 weeks ICD-9 : 782.3 ICD-10 : R60.0 09/28/2016 Visit Diagnosis Plan: Gout, unspecified Discussion: Ch [place] CMP, uric acid now ICD-9 : 274.9 ICD-10 : M10.9 09/28/2016 Appointment: Radha Alan WPtel: [address] [place] [address] 09/27 confirmed`sl ACUTE ILLNESS 09/28/2016 Patient Education: Patient Medication Summary Completed 09/28/2016 Visit Diagnosis Plan: Fever, unspecified Discussion: F marcio - negative Exam unremarkable Likely viral illness Supportive care reviewed Follow up PRN ICD-9 : 780.60 ICD-10 : R50.9 09/15/2016 Appointment: Thuy Lauren [address] [place] [address] ACUTE ILLNESS 09/15/2016 Patient Education: Patient Medication [...] for wellness visit 03/01/2016 Appointment: Thuy Lauren [address] [place] [address] Annual Well Visit 03/01/2016 Patient Education: Patient Medication Summary Completed 03/01/2016 Visit Plan: Check fasting lab Low purine diet and check uric acid as well as DARREN, RA, ASO, B12 12/30/2014 Appointment: Radha Alan WPtel: [address] [place] [address] left vm 12/29... left vm 12/30 Annual Well Visit 0 12/30/2014 Patient Education: Patient Medication Summary Completed 12/30/2014 Appointment: Lorna Choudhary WPtel: [address] [place] [address] [place] FOLLOW UP 11/01/2013 Patient Education: Patient Medication Summary Completed 11/01/2013 Visit Plan: Increase allopurinol to 300m g po daily Change Daypro to Mobic 15mg po daily Add daily fish oil 1gm Add Vitamin D3 1000mg daily 08/16/2011 Appointment: Radha Alan WPtel: [address] [place] [address] [place] FOLLOW UP 08/16/2011 Patient Education: Patient Medication Summary Completed 08/16/2011 Appointment: Radha Alan WPtel: [address] [place] [address] [place] FOLLOW UP 08/09/2011 Appointment: Radha Alan WPtel: [address] [place] [address] FOLLOW UP 08/04/2011 Visit Plan: Check uric acid, Chem 7, HbA 1C, TSH, Free T4 Fwup pending above results 05/02/2011 Appointment: Radha Alan WPtel: [address] [place] [address] ACUTE ILLNESS 05/02/2011 Patient Education: Patient Medication Summary Completed 05/02/2011 Visit Plan: will do fasting labs: Sed ra te, Lipids, CBC, CMP, DARREN, RA factor. (Mag lab) Pt. denies injury but states pain has begun to progress. Trial of Flexeril. Discussed that he may use Ibuprofen as well. 12/13/2010 Appointment: Jyoti Guajardo WPtel: [address] [place] [address] ACUTE ILLNESS 12/13/2010 Patient Education: Patient Medication Summary Completed 12/13/2010 Referral: Chace Teague WPtel: [facility] [place] [address] [place] Referral Appointment Requested Referral: Ben Barbour WPtel: [address] [id number] [place] Referral Initiated Instructions Comment Date . [...] s, CBC, CMP, DARREN, RA factor. ([facility] lab) Pt. denies injury but states pain [...]
[2021-08-25 14:12] LABS: BASOPHILS % (AUTO) 1 % (0-10); EOSINOPHILS # (AUTO) 0.1 10^3/uL (0.0-0.3); EOSINOPHILS % (AUTO) 3 % (0-10); HEMATOCRIT 39 % (40-54); HEMOGLOBIN 13.7 g/dL (13.3-17.7); LYMPHOCYTES # (AUTO) 1.3 10^3/uL (1.0-4.0); LYMPHOCYTES % (AUTO) 24 % (12-44); MEAN CORPUSCULAR HEMOGLOBIN 30 pg (25-34); MEAN CORPUSCULAR HGB CONC 35 g/dL (32-36); MEAN CORPUSCULAR VOLUME 85 fL (80-99); MEAN PLATELET VOLUME 9.6 fL (9.0-12.2); MONOCYTES # (AUTO) 0.7 10^3/uL (0.0-1.0); MONOCYTES % (AUTO) 13 % (0-12); NEUTROPHILS # (AUTO) 3.3 10^3/uL (1.8-7.8); NEUTROPHILS % (AUTO) 60 % (42-75); PLATELET COUNT 206 10^3/uL (130-400); WHITE BLOOD COUNT 5.5 10^3/uL (4.3-11.0)
[2021-08-25] MEDS ORDERED: ASPIRIN 81 MG CHEW (CHILDREN'S ASA) ONE (14:14)
--- NOTE | 2021-08-25 14:14 | ED Chest Pain ---
General Chief Complaint: Chest Pain Stated Complaint: CP,VO Source: patient Exam Limitations: no limitations History of Present Illness Date Seen by Provider: Aug 25, 2021 Time Seen by Provider: 14:53 Initial Comments And I agree to ER with reports of chest pain and headache. Began last night, no cough no shortness of breath no fever no chills. He is vaccinated against COVID. He took some Motrin the headache and the chest pain went away. It then recurred this morning and has been constant since he awakened this morning. Timing/Duration: changing over time Severity/Quality: moderate Location: other Radiation: no radiation Activities at Onset: none ASA po ORNAMENT SETTER: No NTG SL ORNAMENT SETTER: No Associated Symptoms: headache Allergies and Home Medications Allergies Coded Allergies: No Known Drug Allergies (Unverified , 06/04/10) Patient Home Medication List Home Medication List Reviewed: Yes Allopurinol (Allopurinol) 300 Mg Tablet, 300 MG PO DAILY, (Reported) Entered as Reported by: CELSO YEN on 09/21/171510 Cephalexin (Cephalexin) 500 Mg Tablet, 500 MG PO BID Prescribed by: LACY MURRAY on 06/30/18 1245 Hydrocodone Bit/Acetaminophen (Lortab 5 Mg Tablet) 1 Tab Tab, 1-2 EACH PO Q6H PRN for PAIN-MODERATE Prescribed by: LACY MURRAY on 06/30/18 1245 Meloxicam (Meloxicam) 15 Mg Tablet, 15 MG PO DAILY, (Reported) Entered as Reported by: CELSO YEN on 09/21/171510 [place] 3 Polyunsat Fatty Acids (Fish Oil 1,000 mg Capsule) 1,000 Mg Cap, 1,000 MG PO DAILY, (Reported) Entered as Reported by: CELSO YEN on 09/21/171510 Review of Systems Review of Systems Constitutional: see HPI EENTM: No Symptoms Reported Respiratory: No Symptoms Reported; Denies See HPI, Denies Cough, Denies Orthopnea Cardiovascular: See HPI, Chest Pain Gastrointestinal: No Symptoms Reported Genitourinary: No Symptoms Reported Musculoskeletal: no symptoms reported Skin: no symptoms reported Psychiatric/Neurological: No Symptoms Reported Endocrine: No Symptoms Reported Hematologic/Lymphatic: No Symptoms Reported Past Boebjnp-Ikqjyw-Hhgfrl Hx Immunizations Up To Date Tetanus Booster (TDap): Less than 5yrs Seasonal Allergies Seasonal Allergies: No Past Medical History Surgeries: No Respiratory: No Currently Using CPAP: No Currently Using BIPAP: No Cardiac: No Neurological: No Reproductive Disorders: No Sexually Transmitted Disease: No HIV/AIDS: No Gastrointestinal: No (blood in stools) Musculoskeletal: No Gout Endocrine: No HEENT: No Cancer: No Psychosocial: Yes Anxiety Integumentary: No Blood Disorders: No Family Medical History CAD Under 55 Years Old, CAD Over 55 Years Old Physical Exam Vital Signs Vital Signs - First Documented 08/25/21 13:45 Temp 36.1 Pulse 81 Resp 18 B/P (MAP) 154/89 (110) Pulse Ox 97 O2 Delivery Room Air Capillary Refill : Height, Weight, BMI Height: 5'10.00" Weight: 170lbs. 0.0oz. 77.033487kl; 24.7 BMI Method:Stated General Appearance: No Apparent Distress, WD/WN HEENT: PERRL/EOMI, TMs Normal Respiratory: Normal Breath Sounds, No Accessory Muscle Use, No Respiratory Distress Cardiovascular: Regular Rate, Rhythm, Normal Peripheral Pulses Gastrointestinal: Non Tender, Soft Neurologic/Psychiatric: Alert, Oriented x3 Skin: Normal Color, Warm/Dry Progress/Results/Core Measures Results/Orders Lab Results Laboratory Tests Test 08/25/21 14:05 08/25/21 16:00 Range/Units White Blood Count 5.5 4.3-11.0 10^3/uL Red Blood Count 4.57 4.30-5.52 10^6/uL Hemoglobin 13.7 13.3-17.7 g/dL Hematocrit 39 L 40-54 % Mean Corpuscular Volume 85 80-99 fL Mean Corpuscular Hemoglobin 30 25-34 pg Mean Corpuscular Hemoglobin Concent 35 32-36 g/dL Red Cell Distribution Width 11.7 10.0-14.5 % Platelet Count 206 130-400 10^3/uL Mean Platelet Volume 9.6 9.0-12.2 fL Immature Granulocyte % (Auto) 0 % Neutrophils (%) (Auto) 60 42-75 % Lymphocytes (%) (Auto) 24 12-44 % Monocytes (%) (Auto) 13 H 0-12 % Eosinophils (%) (Auto) 3 0-10 % Basophils (%) (Auto) 1 0-10 % Neutrophils # (Auto) 3.3 1.8-7.8 10^3/uL Lymphocytes # (Auto) 1.3 1.0-4.0 10^3/uL Monocytes # (Auto) 0.7 0.0-1.0 10^3/uL Eosinophils # (Auto) 0.1 0.0-0.3 10^3/uL Basophils # (Auto) 0.0 0.0-0.1 10^3/uL Immature Granulocyte # (Auto) 0.0 0.0-0.1 10^3/uL Prothrombin Time 12.9 12.2-14.7 SEC INR Comment 0.9 0.8-1.4 Activated Partial Thromboplast Time 27 24-35 SEC D-Dimer < 0.27 0.00-0.49 UG/ML Sodium Level 139 135-145 MMOL/L Potassium Level 4.1 3.6-5.0 MMOL/L Chloride Level 102 98-107 MMOL/L Carbon Dioxide Level 26 21-32 MMOL/L Anion Gap 11 5-14 MMOL/L Blood Urea Nitrogen 22 H 7-18 MG/DL Creatinine 0.87 0.60-1.30 MG/DL Estimat Glomerular Filtration Rate 91 BUN/Creatinine Ratio 25 Glucose Level 112 H 70-105 MG/DL Calcium Level 9.4 8.5-10.1 MG/DL Corrected Calcium 9.1 8.5-10.1 MG/DL Magnesium Level 1.7 1.6-2.4 MG/DL Total Bilirubin 0.7 0.1-1.0 MG/DL Aspartate Amino Transf (AST/SGOT) 22 5-34 U/L Alanine Aminotransferase (ALT/SGPT) 27 0-55 U/L Alkaline Phosphatase 35 L 40-136 U/L Myoglobin 51.3 10.0-92.0 NG/ML Troponin I < 0.028 < 0.028 <0.028 NG/ML B-Type Natriuretic Peptide < 10.0 <100.0 PG/ML Total Protein 7.2 6.4-8.2 GM/DL Albumin 4.4 3.2-4.5 GM/DL My Orders Orders - ANDREAS GOLDBERG APRN Cbc With Automated Diff (08/25/21 13:46) Magnesium (08/25/21 13:46) Chest 1 View, Ap/Pa Only (08/25/21 13:46) Ekg Tracing (08/25/21 13:46) Comprehensive Metabolic Panel (08/25/21 13:46) Myoglobin Serum (08/25/21 13:46) Protime With Inr (08/25/21 13:46) Partial Thromboplastin Time (08/25/21 13:46) O2 (08/25/21 13:46) Monitor-Rhythm Ecg Trace Only (08/25/21 13:46) Lipid Panel (08/26/21 06:00) Ed Iv/Invasive Line Start (08/25/21 13:46) Bnp Nicole (08/25/21 13:46) Fibrin Degradation Products (08/25/21 13:46) Troponin I Nicole (08/25/21 13:46) Aspirin Chewable Tablet (Baby Aspirin Ch (08/25/21 14:15) Ct Head Wo (08/25/21 15:21) Troponin I Nicole (08/25/21 15:51) Covid 19 Inhouse Test (08/25/21 16:33) Influenza A And B By Pcr (08/25/21 16:33) Medications Given in ED Current Medications Medications Dose Ordered Sig/Henny Route Start Time Stop Time Status Last Admin Dose Admin Aspirin 324 mg ONCE ONCE PO 08/25/21 14:15 08/25/21 14:16 DC 08/25/21 14:15 324 MG Vital Signs/I&O 08/25/21 13:45 Temp 36.1 Pulse 81 Resp 18 B/P (MAP) 154/89 (110) Pulse Ox 97 O2 Delivery Room Air Departure Communication (Admissions) EKG shows no ST segment elevation though the machine interpreted as ST elevation in leads V1 to V4 but this is not present and there is no reciprocal depression. NAME: ARMOND LUNA MED REC#: [id number] PT STATUS: REG ER : 1965 PHYSICIAN: ANDREAS GOLDBERG APRN ADMIT DATE: 08/25/21/ER Signed Date of Exam:08/25/21 CHEST 1 VIEW, AP/PA ONLY INDICATION: Chest pain. TIME OF EXAM: 2:38 PM Correlation is made with prior chest from 03/20/2013. FINDINGS: The heart size is normal. The pulmonary vascularity is unremarkable. The lungs are clear. No infiltrate, effusion or pneumothorax is detected. IMPRESSION: No acute cardiopulmonary process is detected. Dictated by: Dictated on workstation # [id number] Dict: 08/25/21 1455 Trans: 08/25/21 1550 [facility] [id number] Interpreted by: ALANA VILLAVICENCIO MD Electronically signed by: ALANA VILLAVICENCIO MD 08/25/21 4631 Impression Primary Impression: Chest pain Disposition: HOME, SELF-CARE Condition: Stable Departure-Patient Inst. Decision time for Depature: 16:35 Referrals: DARION VALENTINE DO (PCP/Family) Primary Care Physician Patient Instructions: Acute Pain, Adult (DC) ANDREAS GOLDBERG APRN Aug 25, 2021 14:14
[2021-08-25] MEDS ORDERED: ASPIRIN 81 MG CHEW (CHILDREN'S ASA) PO ONE (14:15)
[2021-08-25 14:22] LABS: ALBUMIN 4.4 GM/DL (3.2-4.5); POTASSIUM 4.1 MMOL/L (3.6-5.0)
[2021-08-25 14:23] LABS: CALCIUM 9.4 MG/DL (8.5-10.1)
[2021-08-25 14:25] LABS: TOTAL PROTEIN 7.2 GM/DL (6.4-8.2)
[2021-08-25 14:26] LABS: BILIRUBIN,TOTAL 0.7 MG/DL (0.1-1.0)
[2021-08-25 14:28] LABS: CREATININE SERUM 0.87 MG/DL (0.60-1.30); INR 0.9 (0.8-1.4); PROTHROMBIN TIME PATIENT 12.9 SEC (12.2-14.7)
[2021-08-25 14:31] LABS: MAGNESIUM 1.7 MG/DL (1.6-2.4)
--- NOTE | 2021-08-25 14:57 | Diagnostic Imaging Report ---
INDICATION: Chest pain. TIME OF EXAM: 2:38 PM Correlation is made with prior chest from 03/20/2013. FINDINGS: The heart size is normal. The pulmonary vascularity is unremarkable. The lungs are clear. No infiltrate, effusion or pneumothorax is detected. IMPRESSION: No acute cardiopulmonary process is detected. Dictated by: Dictated on workstation # [id number]
--- NOTE | 2021-08-25 16:01 | Diagnostic Imaging Report ---
EXAMINATION: CT head without contrast. TECHNIQUE: Multiple contiguous axial images were obtained through the brain without the use of intravenous contrast. All CT scans use one or more of the following dose optimizing techniques: Automated exposure control, MA and/or KvP adjustment based on patient size and exam type or iterative reconstruction. HISTORY: Headache. COMPARISON: None available. FINDINGS: No large acute territorial ischemia, mass, or hemorrhage. No midline shift or mass effect. The ventricles, cortical sulci, and basilar cisterns are patent and unremarkable. The orbits are normal. Paranasal sinuses are normal. Mastoid air cells are clear. No soft tissue abnormality is seen. No osseous lesions or fractures are seen. IMPRESSION: 1. No large acute territorial ischemia, mass, or hemorrhage. Dictated by: Dictated on workstation # [id number]
[2021-08-25 16:40] VITALS: BP 131/84
== END 2021-08-25 16:42 | disposition home or self-care (01) ==
LOC: EDUNIT# 13:44 → ER 13:45
DX: R07.9 Chest pain, unspecified (principal); M10.9 Gout, unspecified; Z20.822 Contact with and (suspected) exposure to COVID-19; Z79.899 Other long term (current) drug therapy
CPT/HCPCS: 36415; 70450; 71045; 80053; 83735; 83874; 83880; 84484; 85025; 85379; 85610; 85730; 87636; 93005; 93041